=== PATIENT | male | born 1980 | race Two or more races ===

== ENCOUNTER 2024-06-13 11:21 | Inpatient (IN) | payer BC, SELFPAY ==
[2024-06-13] VITALS (9 sets, daily range): BP systolic 138–154; BP diastolic 82–97; PULSE 105–110; RESP 18–22; TEMP 37–39.1; O2SAT 93–95; BMI 31.3
--- NOTE | 2024-06-13 11:35 | XR_ITS ---
Examination: Abdomen sonogram, Limited Date and time of exam: June 13, 2024 1129 hours INDICATIONS: Epigastric pain beginning one week ago Technique: Real-time al scale transabdominal sonographic images of the upper abdomen obtained. Findings: Multiple subcentimeter gallbladder polyps Gallbladder wall 0.3 cm no gallstones Common bile duct 0.3 cm Pancreas obscured by bowel gas Liver 15.3 cm fatty infiltration Normal hepatopedal portal venous flow Patent IVC IMPRESSION: Gallbladder polyps Negative for cholelithiasis, negative for cholecystitis Fatty liver
--- NOTE | 2024-06-13 11:35 | XR_ITS ---
Examination: PA lateral chest 2 views TECHNIQUE: Upright PA lateral chest 2 views Exam date and time: June 13, 2024 1341 hours Comparison March 13, 2010 INDICATIONS: Chest pain beginning 12 days ago. FINDINGS: Significant elevation right hemidiaphragm Pneumonia at the right base best depicted on the lateral view Moderate right pleural fluid Left lung clear Normal heart size IMPRESSION: Pneumonia right base with moderate right pleural fluid
--- NOTE | 2024-06-13 12:14 | PD.EDRME ---
Rapid Medical Screening Exam [facility] Arrival date/time: 06/13/24 11:21 43-year-old male with no known medical history presents to the emergency room with a chief complaint of thoracic back pain that radiates to the right upper quadrant and chest x 3 days. Patient states the pain is an 8 out of 10 and has progressively gotten worse. I have greeted and performed a focused initial assessment of this patient. A comprehensive ED assessment and evaluation of the patient, analysis of all test results, and completion of the medical decision making process will be conducted by additional ED providers. Chief Complaint: Chest Pain Time Seen by Provider: 06/13/24 11:36 Vital signs: Vital Signs Temperature 98.6 F 06/13/24 11:30 Pulse Rate 109 H 06/13/24 11:30 Respiratory Rate 18 06/13/24 11:30 Blood Pressure 138/95 H 06/13/24 11:30 Pulse Oximetry (%) 94 L 06/13/24 11:30 Oxygen Delivery Method Room Air 06/13/24 11:30 Vital signs reviewed by provider: Yes
[2024-06-13 12:43] LABS: Collection Type, Urine Clean Catch
[2024-06-13 12:50] LABS: Bilirubin,Urine Negative (Negative); Blood,Urine Trace (Negative); Clarity,Urine Clear (Clear/Hazy); Color,Urine Lt-Yellow (Lt Yel-Yel); Glucose, Urine Trace (Negative); Ketones,Urine Negative (Negative); Leukocyte Esterase,Urine Negative (Negative); Nitrite,Urine Negative (Negative); PH,Urine 6.5 (5.0-7.0); Protein,Urine Negative (Neg - Trace); RBC,Urine 1 /hpf (0-3); Specific Gravity,Urine 1.012 (1.001-1.035); Squamous Epithelial Cell,Urine < 1 /hpf (0-5); Urobilinogen,Urine Negative mg/dL (0.0-1.0); WBC,Urine 3 /hpf (0-5)
[2024-06-13 12:56] LABS: Amphetamine/Methamp Scrn,U Negative (Negative); Barbiturate Screen,Urine Negative (Negative); Benzodiazepines Screen,Urine Negative (Negative); Benzoylecgonine Screen, Ur Negative (Negative); Fentanyl Screen,Urine Negative (Negative); Opiate Screen,Urine Negative (Negative); THC Screen,Urine Negative (Negative)
[2024-06-13 13:37] LABS: Basophils # (Auto) 0.1 Thou/mm3 (0.0-0.2); Basophils % (Auto) 0 % (0-2.5); Eosinophils # (Auto) 0.3 Thou/mm3 (0.0-0.5); Eosinophils % (Auto) 2 % (0-10); Hemoglobin 14.4 g/dL (13.5-16.0); Immature Granulocytes % (Auto) 0 % (0-0); Immature Granulocytes Auto 0.07 Thou/mm3 (0.00-0.00); Lymphocytes # (Auto) 1.3 Thou/mm3 (1.0-4.8); Lymphocytes % (Auto) 8 % (10-50); Mean Corpuscular HGB Conc 35.1 g/dl (31.0-37.0); Mean Corpuscular Hemoglobin 30.1 pg (25.0-35.0); Mean Corpuscular Volume 86 fL (80-100); Monocytes # (Auto) 2.6 Thou/mm3 (0.0-0.8); Monocytes % (Auto) 15 % (0-12); Neutrophils # (Auto) 12.7 Thou/mm3 (1.8-7.7); Neutrophils % (Auto) 74 % (37-80); Nucleated Red Blood Cell % 0 /100 WBC (0); Platelet Count 326 Thou/mm3 (140-440); RDW Standard Deviation 38.5 fL (35.1-43.9); Red Blood Count 4.79 Miln/mm3 (4.50-5.90)
[2024-06-13 13:52] LABS: B-Type Natriuretic Peptide < 20 pg/mL (0-100)
[2024-06-13 13:53] LABS: Alanine Aminotransferase 27 U/L (10-49); Albumin, Serum 4.4 gm/dL (3.5-5.0); Albumin/Globulin Ratio 1.3 (1.2-2.2); Alkaline Phosphatase 78 U/L (46-116); Anion Gap 7 (7-16); Aspartate Amino Transferase 11 U/L (0-34); BUN/Creatinine Ratio 11 Ratio (12-20); Bilirubin,Total 0.8 mg/dL (0.3-1.2); Blood Urea Nitrogen 10 mg/dL (9-23); Calcium 9.4 mg/dL (8.3-10.6); Calcium (Corrected) 9.4 mg/dL (8.5-10.1); Chloride 103 mMol/L (98-107); Creatinine (Component) 0.9 mg/dL (0.6-1.3); Estimated Creatinine Clearance 112.5 mL/min (>60); Globulin 3.4 gm/dL (2.3-3.5); Glucose 109 mg/dL (74-106); Lipase 25 U/L (12-53); Osmolality,Calculated 277 (275-295); Potassium 4.6 mMol/L (3.4-5.1); Sodium 139 mMol/L (136-145); Total Protein 7.8 gm/dL (5.7-8.2); Troponin I < 0.002 ng/mL (0.0-0.045); eGFR > 60 See Note
--- NOTE | 2024-06-13 15:43 | PD.EDADULT ---
ED General RME/HPI General Chief complaint: Chest Pain Stated complaint: CHEST/BACK PAIN/ HIGH BP Time Seen by Provider: 06/13/24 11:36 Arrival date/time: 06/13/24 11:21 Limitations: no limitations RME / HPI RME / HPI narrative: 06/13/24 11:21 43-year-old male with no known medical history presents to the emergency room with a chief complaint of thoracic back pain that radiates to the right upper quadrant and chest x 3 days. Patient states the pain is an 8 out of 10 and has progressively gotten worse. I have greeted and performed a focused initial assessment of this patient. A comprehensive ED assessment and evaluation of the patient, analysis of all test results, and completion of the medical decision making process will be conducted by additional ED providers. DR. KENNY MAIN ED EVALUATION: 43 year old male with history of hypertension presents to the ED for evaluation of chest and back pain beginning 3 days ago. Pain described as aching in sensation that is located most to chest and upper back, rating as moderate-severe. Accompanied by fever of 102F and cough. states they were evaluated at urgent care yesterday and was given a shot of Toradol and sent home. No known modifying factors reported. Related Data Allergies Allergy/AdvReac Type Severity Reaction Status Date / Time NKA* Allergy Uncoded 10/01/17 13:35 Review of Systems Review of Systems Systems Reviewed: All systems reviewed, normal except as documented Past Medical History Past Medical History NEUROLOGIC: Negative Neurological Disorders GASTROINTESTINAL: Negative Gastrointestinal Disorders GENITOURINARY: Negative Genitourinary Disorders or Renal Disease MUSCULOSKELETAL: Negative Musculoskeletal Disorders Social History SMOKING STATUS: Never smoker ED Exam General Limitations: Present no limitations General appearance: Present alert and in no apparent distress Head Head exam: Present atraumatic, normocephalic and normal inspection Eye Eye exam: Present normal appearance, PERRL and EOMI ENT ENT exam: Present normal exam, normal oropharynx and mucous membranes moist Neck Neck exam: Present normal inspection, full ROM and trachea midline Chest Chest inspection: Present normal inspection and symmetric chest wall rise Respiratory Respiratory exam: Present other (diminished breath sounds on the right side) Cardiovascular Cardiovascular exam: Present tachycardia and normal heart sounds Abdominal Exam Abdominal exam: Present soft and normal bowel sounds Extremities Exam Extremities exam: Present normal inspection and full ROM Back Exam Back exam: Present normal inspection and full ROM Neurological Exam Neurological exam: Present alert, oriented X3 and CN II-XII intact Psychiatric Psychiatric exam: Present normal affect and normal mood Skin Skin exam: Present warm, dry, intact and normal color Course Quality Measures none Orders Category Date Time Status Admit to Inpatient Status Routine Admission 06/13/24 16:08 Active Patient Condition Routine Admission 06/13/24 16:08 Ordered Activity as Tolerated Routine Care 06/13/24 16:09 Ordered COVID-19 Screening Questionnaire NOW Care 06/13/24 15:35 Active Continuous Pulse Oximetry NOW Care 06/13/24 16:08 Active Decision to Admit X1 Care 06/13/24 15:35 Active EKG (ED ONLY) *Do not use* NOW Care 06/13/24 11:35 Completed Flu & Pneumonia Vaccine Screen ONCE Care 06/13/24 16:08 Active Incentive Spirometry Treatment NOW Care 06/13/24 16:08 Active Notify provider NEEDED Care 06/13/24 16:08 Active Obtain weight daily Care 06/13/24 16:08 Active Diet Cardiac Diet 06/13/24 Dinner Active EKG (ED Only) Stat Exams 06/13/24 11:35 Ordered US gall bladder Stat Exams 06/13/24 11:35 Completed XR chest 2V Stat Exams 06/13/24 11:35 Completed B-Type Natriuretic Peptide Stat Lab 06/13/24 13:27 Completed Blood Culture (Lab) Stat Lab 06/13/24 15:30 Ordered CBC AM DRAW Lab 06/14/24 05:00 Ordered CBC AM DRAW Lab 06/15/24 05:00 Ordered CBC AM DRAW Lab 06/16/24 05:00 Ordered CBC Stat Lab 06/13/24 13:27 Completed Cocci Serology IgM with reflex to IgG [Cocci Serology, Lab 06/13/24 16:12 Ordered Unk History] Stat Comprehensive Metabolic Panel AM DRAW Lab 06/14/24 05:00 Ordered Comprehensive Metabolic Panel AM DRAW Lab 06/15/24 05:00 Ordered Comprehensive Metabolic Panel AM DRAW Lab 06/16/24 05:00 Ordered Comprehensive Metabolic Panel Stat Lab 06/13/24 13:27 Completed Drug Screen,Urine Stat Lab 06/13/24 12:28 Completed Legionella Ag, EIA, Urine* Stat Lab 06/13/24 Ordered Lipase Stat Lab 06/13/24 13:27 Completed Lipid Panel AM DRAW Lab 06/14/24 05:00 Ordered Magnesium AM DRAW Lab 06/14/24 05:00 Ordered Phosphorous AM DRAW Lab 06/14/24 05:00 Ordered Prothrombin Time with INR AM DRAW Lab 06/14/24 05:00 Ordered RSV [Respiratory Syncytial Virus Ag] Stat Lab 06/13/24 16:12 Ordered Sputum Culture and Gram Stain Routine Lab 06/13/24 16:10 Ordered Troponin I Stat Lab 06/13/24 13:27 Completed Urinalysis Stat Lab 06/13/24 12:28 Completed Acetaminophen Tab [Tylenol Tab] Med 06/13/24 16:08 Active 650 mg PO Q6H PRN Heparin Inj Med 06/13/24 21:00 Ordered 5,000 unit SC Q12HR Levofloxacin/D5w 500 mg Ivpb [Levaquin Ivpb] Med 06/13/24 15:32 Active 500 mg in 100 ml IV X1 Morphine Inj Med 06/13/24 16:08 Ordered 1 mg IVP Q4H PRN Ondansetron Inj [Zofran Inj] Med 06/13/24 16:08 Ordered 4 mg IV Q6H PRN Senna [Senokot] Med 06/13/24 16:08 Ordered 1 tab PO QDAY PRN Sodium Chloride 0.9% 1000 ml [Ns] 1,000 ml Med 06/13/24 15:30 Active IV 999 mls/hr Sodium Chloride Rt Willow 10% [NS Rt Willow 10%] Med 06/13/24 16:08 Once 5 ml INH X1 ONE cefTRIAXone/D5w 1gm IV premix [Rocephin/D5w 1gm IV Med 06/13/24 16:11 Active premix] 1 gm in 50 ml IV QDAY cefTRIAXone/D5w 1gm IV premix [Rocephin/D5w 1gm IV Med 06/13/24 15:30 Discontinued premix] 1 gm in 50 ml IV X1 oxyCODONE/APAP 5/325 [Percocet 5/325] Med 06/13/24 16:08 Ordered 1 tab PO Q6H PRN Code Status Routine Oth 06/13/24 16:08 Ordered Sputum Induction PRN RT 06/13/24 16:15 Ordered Vital Signs Vital signs: Vital Signs Temperature 98.6 F 06/13/24 11:30 Pulse Rate 109 H 06/13/24 11:30 Respiratory Rate 18 06/13/24 11:30 Blood Pressure 138/95 H 06/13/24 11:30 Pulse Oximetry (%) 94 L 06/13/24 11:30 Oxygen Delivery Method Room Air 06/13/24 11:30 Pulse ox is 94% on room air which is adequate. Discharge Plan Plan Patient Disposition: Admit Acute Care w/in Hospital Problem List Clinical Impression: Pneumonia, Leukocytosis, Pleural effusion Patient/Caregiver Discharge Instructions Print Language: Divehi Stand Alone Forms: Audra Award Info., Patient Portal Info Letter MDM Clinical Information Provided by: patient Medical Records reviewed [facility] (I reviewed ED visit on 09/03/2017 ) Meds/Rx considered, not ordered None Labs/Rad/Tests considered, not ordered None Chronic Illness/Social Conditions which may negatively complicate care or outcome(s)-explain: None or not applicable EKG Interpretation EKG #1: EKG Interpretation: 06/13/2024 @ 11:36 am. Sinus tachycardia, rate 109, no acute ST or T-wave changes. Labs Labs: Interpreted by [facility] Lab(s) Interpretation(s): Leukocytosis, diagnosed with pneumonia Imaging Imaging interpretation: Interpreted by [facility] Imaging Interpretation(s): Ordering Physician: Jose Manuel Bethea Date of Service: 06/13/24 Procedure(s): XR chest 2V Accession Number(s): [id number] cc: Jose Manuel Bethea; Cody Griggs MD; Amaya Valdes MD~ Examination: PA lateral chest 2 views TECHNIQUE: Upright PA lateral chest 2 views Exam date and time: June 13, 2024 1341 hours Comparison March 13, 2010 INDICATIONS: Chest pain beginning 12 days ago. FINDINGS: Significant elevation right hemidiaphragm Pneumonia at the right base best depicted on the lateral view Moderate right pleural fluid Left lung clear Normal heart size IMPRESSION: Pneumonia right base with moderate right pleural fluid Dictated By: Cody Griggs MD Signed By: <Electronically signed by Cody Griggs MD in OV> 06/13/24 1338 Ordering Physician: Jose Manuel Bethea Date of Service: 06/13/24 Procedure(s): US gall bladder Accession Number(s): [id number] cc: Jose Manuel Bethea; Cody Griggs MD; Amaya Valdes MD~ Examination: Abdomen sonogram, Limited Date and time of exam: June 13, 2024 1129 hours INDICATIONS: Epigastric pain beginning one week ago Technique: Real-time al scale transabdominal sonographic images of the upper abdomen obtained. Findings: Multiple subcentimeter gallbladder polyps Gallbladder wall 0.3 cm no gallstones Common bile duct 0.3 cm Pancreas obscured by bowel gas Liver 15.3 cm fatty infiltration Normal hepatopedal portal venous flow Patent IVC IMPRESSION: Gallbladder polyps Negative for cholelithiasis, negative for cholecystitis Fatty liver Dictated By: Cody Griggs MD Signed By: <Electronically signed by Cody Griggs MD in OV> 06/13/24 1255 Medication Administration(s) Medication Administration History Acetaminophen (Acetaminophen 325 Mg Tablet) 650 mg PO Q6H PRN PRN Reason: Pain 1-3 and/or Fever >100.1 Stop: 07/13/24 16:07 Heparin Sodium (Porcine) (Heparin Sod Inj 5000 Unit/Ml Vial) 5,000 unit SC Q12HR CYNTHIA Stop: 06/27/24 20:59 Sodium Chloride (Ns) 1,000 mls @ 999 mls/hr IV .Q1H1M ONE Stop: 06/13/24 16:30 Levofloxacin/Dextrose (Levaquin Ivpb) 500 mg in 100 mls @ 100 mls/hr IV X1 ONE Stop: 06/13/24 16:31 Ceftriaxone Sodium/Dextrose (Rocephin/D5w 1gm Iv Premix) 1 gm in 50 mls @ 100 mls/hr IV QDAY CYNTHIA Stop: 06/20/24 16:10 Morphine Sulfate (Morphine Sulf Inj 10 Mg/Ml Vial) 1 mg IVP Q4H PRN PRN Reason: PAIN SCALE 7-10 (Severe Stop: 06/18/24 16:07 Ondansetron HCl (Ondansetron Inj 2 Mg/Ml Inj 2 Ml) 4 mg IV Q6H PRN; Protocol PRN Reason: NAUSEA OR VOMITING Stop: 07/13/24 16:07 Oxycodone/Acetaminophen (Oxycodone/Apap 5/325 Tablet) 1 tab PO Q6H PRN PRN Reason: PAIN SCALE 4-6 (Moderate Stop: 06/18/24 16:07 Sennosides (Senna Tablet) 1 tab PO QDAY PRN; Protocol PRN Reason: constipation Stop: 07/13/24 16:07 Sodium Chloride (Sodium Chloride Rt 10% 15 Ml Nebu) 5 ml INH X1 ONE Stop: 06/13/24 16:09 Discontinued Medications Ceftriaxone Sodium/Dextrose (Rocephin/D5w 1gm Iv Premix) 1 gm in 50 mls @ 100 mls/hr IV X1 ONE Stop: 06/13/24 15:59 See above
--- NOTE | 2024-06-13 16:22 | ESHP_ITS ---
Documentation for date of: 06/13/24 HPI History of Present Illness Chief complaint: Chest/epigastric pain, fever, shortness of breath History of present illness: 43-year-old male with past medical history of hypertension on losartan presenting to the ED on 06/13/2024 for unrelenting epigastric/chest pain associated with shortness of breath, cough and fever. Patient states that since Saturday 06/03 he has started to have some generalized pain including back pain, epigastric and chest pain which started when he woke up after work that day. Patient was seen at an urgent care facility and was given some Toradol but no antibiotics for initially suspected muscle strain. Patient developed fevers (as high as 102 ?F) and one vomiting episode which prompted him to come to the ED. Patient denies having any sick contacts, dizziness, palpitations, orthopnea, paroxysmal nocturnal dyspnea; however, the patient does state that he has not had appetite for about 4 days and he has not been sleeping well. Patient is an [employer] worker and has been working since 2005; moreover, states that he worked at a [employer] site Monday prior to his symptom onset and Sunday 06/04 after symptom onset. Patient denies having any immunocompromise state, denies both firsthand and secondhand smoke, no illicit drug use and denies any family history of lung disease. Medical history: As stated above Surgical history: None Allergies: NKDA Medications: Losartan 100 mg p.o. 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 ROS: All 12 systems assessed and the patient denies unless otherwise stated in HPI In the ED, patient presented mildly hypertensive 138/95, tachycardic heart rate 109, respiratory rate 18, (initially afebrile) now 102.4F and satting between 92 and 94 on room air. Pertinent lab findings included WBC of 17, hemoglobin 14.4, platelets of 326, electrolyte panel without any remarkable findings, glucose of 109, troponin within normal limits, BNP less than 20, lipase of 25. Urinalysis negative for any urinary tract infection, U-Tox negative. Chest x-ray did show significant elevation of the right hemidiaphragm, pneumonia in the right base with moderate right pleural fluid and a normal sized heart with a clear left lung. Ultrasound of the gallbladder ordered showed gallbladder polyps, negative for any cholelithiasis or cholecystitis but there were signs of NGUYEN. Patient will be admitted for extensive right pneumonia with pleural effusion and started on IV antibiotics with workup for secondary causes of pneumonia and possible ultrasound-guided thoracentesis. Exam Vital Signs Temp Pulse Resp BP Pulse Ox O2 Del Method 98.6 F 109 H 18 138/95 H 94 L Room Air 06/13/24 11:30 06/13/24 11:30 06/13/24 11:30 06/13/24 11:30 06/13/24 11:06/13/24 11:30 Narrative Exam Physical Exam: GENERAL: Awake, appears stated age, diaphoretic, answering questions appropriately HEENT: NC/AT. Moist mucosa. PERRLA/EOMI. CARDIO: Heart RRR, no obvious murmurs, no JVD. PULM: Dry coughing with visible SOB as noted from intercostal retractions. Lungs CTA B/L. GI: Abdomen soft, mildly tender to palpation in epigastric and right upper quadrant, +BS. , SKIN/MSK/EXT: No wounds/discoloration/rashes/edema/amputations. +Pedal pulses present B/L. NEURO: Oriented x3, Moves extremities x4, no focal neurologic deficits noted. Results: Labs 06/14/24 05:09 06/14/24 05:09 Labs: Short CBC 06/13/24 Range/Units 13:27 WBC 17.0 H (3.8-10.6) Thou/mm3 Hgb 14.4 (13.5-16.0) g/dL Hct 41.0 (41.0-53.0) % Plt Count 326 (140-440) Thou/mm3 BMP 06/13/24 13:27 Sodium 139 Potassium 4.6 Chloride 103 Carbon Dioxide 29.0 BUN 10 Creatinine 0.9 Glucose 109 H Calcium 9.4 Cardiac Enzymes 06/13/24 Range/Units 13:27 Troponin I < 0.002 (0.0-0.045) ng/mL Liver Function 06/13/24 Range/Units 13:27 Total Bilirubin 0.8 (0.3-1.2) mg/dL AST 11 (0-34) U/L ALT 27 (10-49) U/L Alkaline Phosphatase 78 (46-116) U/L Albumin 4.4 (3.5-5.0) gm/dL Urine 06/13/24 Range/Units 12:28 Urine Color Lt-Yellow (Lt Yel-Yel) Urine Clarity Clear (Clear/Hazy) Urine pH 6.5 (5.0-7.0) Ur Specific Atkins 1.012 (1.001-1.035) Urine Protein Negative (Neg - Trace) Urine Glucose (UA) Trace (Negative) Quality Measures Quality Measures none Medications Home Medications and Allergies Home Medications ?Medication ?Instructions ?Recorded ?Confirmed ?Type cyclobenzaprine 10 mg tablet 10 mg PO TID 06/14/2404/09 History losartan 100 mg tablet 100 mg PO QDAY 06/14/2404/09 History Allergies Allergy/AdvReac Type Severity Reaction Status Date / Time No Known Allergies Allergy Verified 06/14/24 00:17 Visit Medications Acetaminophen (Acetaminophen 325 Mg Tablet) 650 mg PO Q6H PRN PRN Reason: Pain 1-3 and/or Fever >100.1 Stop: 07/13/24 16:07 Heparin Sodium (Porcine) (Heparin Sod Inj 5000 Unit/Ml Vial) 5,000 unit SC Q12HR [facility] Stop: 06/27/24 20:59 Sodium Chloride (Ns) 1,000 mls @ 999 mls/hr IV .Q1H1M ONE Stop: 06/13/24 16:30 Levofloxacin/Dextrose (Levaquin Ivpb) 500 mg in 100 mls @ 100 mls/hr IV X1 ONE Stop: 06/13/24 16:31 Ceftriaxone Sodium/Dextrose (Rocephin/D5w 1gm Iv Premix) 1 gm in 50 mls @ 100 mls/hr IV QDAY CYNTHIA Stop: 06/21/24 08:59 Azithromycin 500 mg/ Sodium (Chloride) 250 mls @ 250 mls/hr IV QDAY ONE Stop: 06/14/24 09:59 Azithromycin 250 mg/ Sodium (Chloride) 250 mls @ 250 mls/hr IV QDAY CYNTHIA Stop: 06/19/24 08:59 Morphine Sulfate (Morphine Sulf Inj 10 Mg/Ml Vial) 1 mg IVP Q4H PRN PRN Reason: PAIN SCALE 7-10 (Severe Stop: 06/18/24 16:07 Ondansetron HCl (Ondansetron Inj 2 Mg/Ml Inj 2 Ml) 4 mg IV Q6H PRN; Protocol PRN Reason: NAUSEA OR VOMITING Stop: 07/13/24 16:07 Oxycodone/Acetaminophen (Oxycodone/Apap 5/325 Tablet) 1 tab PO Q6H PRN PRN Reason: PAIN SCALE 4-6 (Moderate Stop: 06/18/24 16:07 Sennosides (Senna Tablet) 1 tab PO QDAY PRN; Protocol PRN Reason: constipation Stop: 07/13/24 16:07 Discontinued Medications Ceftriaxone Sodium/Dextrose (Rocephin/D5w 1gm Iv Premix) 1 gm in 50 mls @ 100 mls/hr IV X1 ONE Stop: 06/13/24 15:59 Ceftriaxone Sodium/Dextrose (Rocephin/D5w 1gm Iv Premix) 1 gm in 50 mls @ 100 mls/hr IV QDAY CYNTHIA Stop: 06/20/24 16:10 Sodium Chloride (Sodium Chloride Rt 10% 15 Ml Nebu) 5 ml INH X1 ONE Stop: 06/13/24 16:09 Assessment & Plan Plan 43-year-old male with past medical history of hypertension on losartan presenting to the ED for unrelenting epigastric/chest pain associated with shortness of breath, cough and fever will be admitted for extensive right pneumonia with pleural effusion and started on IV antibiotics with workup for secondary causes of pneumonia and possible ultrasound-guided thoracentesis. 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 which is a risk factor for uncommon pathogens causing lung disease On examination, patient has dry coughing with visible SOB as noted from intercostal retractions, tachycardia with heart rate of 109 Pertinent lab findings include WBC of 17 with elevated monocytes but low in eosinophils Chest x-ray did show significant elevation of the right hemidiaphragm, pneumonia in the right base with moderate right pleural fluid and a normal sized heart with a clear left lung DDx: Community-acquired pneumonia, bacterial, legionnaire bacteria pneumonia, viral pneumonia, coccidiomycosis, pleural malignancy less likely Patient did receive x 1 dose of Levaquin Plan: Ultrasound-guided thoracentesis ordered Pleural fluid analysis ordered IV NS 100cc for 1 bag CTA Chest to r/o PE; tachycardia and hypoxia Multimodal pain management for pleuritis Ceftriaxone azithromycin to be added starting 5/2 Sputum culture, blood cultures ordered RSV, cocci, urine Legionella, HIV Ab ordered Will hold off on breathing treatments as the patient does not have any wheezing noted #Hypertension Patient on home losartan 100 mg p.o. daily Plan: Will restart home medications Ordered lipid panel, A1c and TSH to workup ASCVD risk score #Metabolic Dysfunction-Associated Steatotic Liver Disease Patient does have a BMI of 31.3 Ultrasound of the gallbladder ordered showed gallbladder polyps, negative for any cholelithiasis or cholecystitis but there were signs of NGUYEN. Ultrasound was ordered as the patient was having nonspecific epigastric and right thorax pain likely secondary to the pneumonia Patient's liver function labs look unremarkable Plan: Follow-up outpatient Counseled on diet and exercise Hospital Management: Lines: PIV Diet: Cardiac Bowel: Senna as needed GI prophylaxis: Not needed DVT prophylaxis: Heparin subcu Dispo: Workup for bacterial, viral versus fungal pneumonia on IV antibiotics and possible ultrasound-guided thoracentesis Code: Full Patient seen and assessed with attending Dr. Judy Holly, PGY-1 Attending Provider Attestation/Addendum Duy, Gabriella Kim DO, attest that I was physically present for the mensah portions of the service and evaluated the patient with the resident and I reviewed and discussed the case with the resident and agree with the resident's findings and plans of care as documented above Patient is a 43-year-old male with past medical history of hypertension who presented to the ED with 9 days of worsening right sided chest pain and shortness of breath. Patient states that he initially thought that he had pulled a muscle resulting in pain in his right mid scapular region. Patient took some muscle relaxants and pain medicine with little resolution of his pain. Patient endorses having worsening pain with deep inspiration. However, he noted that he had worsening generalized weakness and fevers that began yesterday. Patient denies any sick contacts at home or at work. Patient states that he works at the [employer] in [facility]. Chest x-ray shows pneumonia in the right base. Patient denies any tobacco, alcohol or drug use. He continues to be tachycardic in the ED with fever 102.4. Patient remains on room air but is taking shallow breaths due to pain on inspiration. Patient also endorses having dark-colored urine, but denies dysuria. He also endorses having shaking chills, but denies any productive sputum, lightheadedness, dizziness, abdominal pain otherwise. He reports having 2 days of diarrhea. Will admit patient for further workup and medical management of extensive right lower lobe pneumonia and admit to med/telemetry. CTA was also done showing no evidence of pulmonary emboli, but does show severe right lung pneumonia and a small right pleural effusion. Will start patient on IV antibiotics for coverage of atypical gram- negative pneumonia. Will give aggressive IV fluid hydration as patient has had poor p.o. intake. Will follow-up blood cultures. Patient does not have any rashes or skin lesions noted. He does have diminished breath sounds in the right lower lung castillo.
[2024-06-13] MEDS: SODIUM CHLORIDE 0.9% 1000 ML 1,000 ML 999 ML IV (16:57)
[2024-06-13] MEDS: cefTRIAXone/D5w 1gm IV premix 1 GM/50 ML BAG IV (16:58)
[2024-06-13] MEDS: ACETAMINOPHEN 325 MG TABLET 650 MG PO (16:59)
[2024-06-13] MEDS: MORPHINE SULF INJ 10 MG/ML VIAL IVP (16:59)
--- NOTE | 2024-06-13 17:09 | PC.NURSE ---
pt reports he only has cp when he coughs and that pain is a 10/10. pt medicated for pain (see mar). pt has temp, tylenol given, pt is tachy and hypertensive on tele
--- NOTE | 2024-06-13 17:17 | XR_ITS ---
Examination: CTA chest with intravenous contrast 2-D reconstructions 3-D reconstructions, vascular Date and time of exam: June 13, 2024 1751 hours INDICATIONS: Chest pain and shortness of breath hypoxia tachycardia today, clinical diagnosis pulmonary emboli CTDI: vol (mGy) 15.5 DLP: (mGycm) 553 Technique: Multiple axial sections of the thorax have been obtained. 3 mm slice thickness, from below the hemidiaphragms to above the apices of the lungs. Mediastinal and lung density settings have been obtained. 2-D sagittal and coronal reconstructions. 3-D angiographic renderings, 3-D volume renderings, 3D post processing, vascular maximum intensity projections obtained. Contrast administered is 100 cc Isovue-370. Low dose protocols were performed. One or more of the following dose reduction techniques were used; automated exposure control, adjustment of the mA and/or KV according to patient size, use of iterative reconstruction technique. Findings: No thoracic aortic aneurysm dilatation or dissection No pulmonary artery filling defects Severe right lung pneumonia including right middle lobe and right lower lobe with small right pleural effusion Fatty liver Spleen not enlarged No gallstones No pancreatic or adrenal mass No hydronephrosis IMPRESSION: Negative for pulmonary artery emboli Severe right lung pneumonia, follow-up chest imaging is needed to document clearing of this pneumonia and exclude pulmonary mass in the right upper lobe
[2024-06-13 17:48] LABS: HIV (1&2) Antibody Rapid Non-Reactive
[2024-06-13 17:49] LABS: Path Review Blood Smear Sent to Pathologist
[2024-06-13] MEDS: LEVOFLOXACIN/D5W 500 MG IVPB 500 MG/100 ML BAG 100 MG IV (18:51)
[2024-06-13] MEDS: SODIUM CHLORIDE 0.9% 1000 ML 1,000 ML 100 ML IV (18:52)
[2024-06-13] MEDS: HEPARIN SOD INJ 5000 UNIT/ML VIAL SC (21:19)
[2024-06-13] MEDS: IBUPROFEN TAB 400 MG TABLET PO (21:45)
[2024-06-14] VITALS (13 sets, daily range): BP systolic 130–156; BP diastolic 89–100; PULSE 90–114; RESP 18–20; TEMP 36.7–38.7; O2SAT 93–98; BMI 31.5
[2024-06-14 02:19] LABS: Respiratory Syncytial Virus Ag Negative (Negative)
[2024-06-14] MEDS: oxyCODONE/APAP 5/325 TABLET 1 TAB PO (03:34)
[2024-06-14 06:22] LABS: Basophils % (Auto) 0 % (0-2.5); Eosinophils # (Auto) 0.5 Thou/mm3 (0.0-0.5); Eosinophils % (Auto) 4 % (0-10); Hemoglobin 12.6 g/dL (13.5-16.0); Immature Granulocytes % (Auto) 0 % (0-0); Immature Granulocytes Auto 0.05 Thou/mm3 (0.00-0.00); Lymphocytes % (Auto) 7 % (10-50); Mean Corpuscular Hemoglobin 30.3 pg (25.0-35.0); Mean Corpuscular Volume 87 fL (80-100); Monocytes # (Auto) 2.2 Thou/mm3 (0.0-0.8); Monocytes % (Auto) 16 % (0-12); Neutrophils # (Auto) 9.7 Thou/mm3 (1.8-7.7); Neutrophils % (Auto) 72 % (37-80); Nucleated Red Blood Cell % 0 /100 WBC (0); Platelet Count 296 Thou/mm3 (140-440); RDW Standard Deviation 40.4 fL (35.1-43.9); Red Blood Count 4.16 Miln/mm3 (4.50-5.90); White Blood Count 13.5 Thou/mm3 (3.8-10.6)
[2024-06-14 06:45] LABS: INR 1.1 (0.9-1.3); Prothrombin Time 11.5 Seconds (9.0-12.2)
[2024-06-14 06:50] LABS: Glucose Estimated Average 105 mg/dL (80-131); Hemoglobin A1C 5.3 % Hgb (4.8-6.0)
[2024-06-14 07:06] LABS: Alanine Aminotransferase 23 U/L (10-49); Albumin, Serum 3.9 gm/dL (3.5-5.0); Albumin/Globulin Ratio 1.3 (1.2-2.2); Alkaline Phosphatase 70 U/L (46-116); Anion Gap 10 (7-16); Aspartate Amino Transferase 13 U/L (0-34); BUN/Creatinine Ratio 11 Ratio (12-20); Bilirubin,Total 0.6 mg/dL (0.3-1.2); Blood Urea Nitrogen 9 mg/dL (9-23); Calcium 8.5 mg/dL (8.3-10.6); Calcium (Corrected) 8.6 mg/dL (8.5-10.1); Carbon Dioxide 26.9 mMol/L (20.0-31.0); Cardiac Risk Estimate 4.5 RATIO (4.0-6.7); Chloride 104 mMol/L (98-107); Cholesterol 95 mg/dL (132-200); Creatinine (Component) 0.8 mg/dL (0.6-1.3); Globulin 2.9 gm/dL (2.3-3.5); Glucose 110 mg/dL (74-106); HDL Cholesterol 21 mg/dL (40-60); LDL Cholesterol,Calculated 53 mg/dL (0-130); Magnesium 1.6 mg/dL (1.6-2.6); Osmolality,Calculated 280 (275-295); Potassium 3.7 mMol/L (3.4-5.1); Sodium 141 mMol/L (136-145); Thyroid Stimulating Hormone 3.38 uIU/mL (0.55-4.78); Total Protein 6.8 gm/dL (5.7-8.2); Triglycerides 107 mg/dL (30-150); eGFR > 60 See Note
--- NOTE | 2024-06-14 08:00 | XR_ITS ---
Examination: Ultrasound right hemithorax Ultrasound left hemithorax Exam date and time: June 14, 2024 1045 hours INDICATIONS: Difficulty breathing this week, pleural fluid on the right on CT angiogram June 13, 2024, minimal TECHNIQUE AND FINDINGS: Multiple grayscale sonographic images right and left hemithoraces Minimal right pleural fluid No left pleural fluid IMPRESSION: Insufficient pleural fluid for safe thoracentesis
[2024-06-14] MEDS: cefTRIAXone/D5w 1gm IV premix 1 GM/50 ML BAG IV (08:50)
[2024-06-14] MEDS: LOSARTAN POTASSIUM 25 MG TABLET 100 MG PO (08:50)
[2024-06-14] MEDS: HEPARIN SOD INJ 5000 UNIT/ML VIAL SC (08:50)
[2024-06-14] MEDS: ACETAMINOPHEN 325 MG TABLET 650 MG PO ×3 (09:26→21:09)
[2024-06-14] MEDS: AZITHROMYCIN INJ 500 MG in SODIUM CHLORIDE 0.9% 250 ML 250 ML 250 MG IV (09:27)
--- NOTE | 2024-06-14 10:31 | PC.NURSE ---
Dr. Palacios was made aware sputum collection was canceled, no new orders given.
[2024-06-14 11:54] LABS: Cocci Serology, IgM Positive (Negative)
[2024-06-14 11:55] LABS: Cocid Sro, CF/ID (UCD) NO CHG* See Sep Rpt
--- NOTE | 2024-06-14 11:59 | PC.SS ---
Patient is alert/oriented. Employed. Independent with ADL's. 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 Patient admitted with pneumonia. i.v. antibiotics. Possible d/c today per physician team
[2024-06-14] MEDS: MORPHINE SULF INJ 10 MG/ML VIAL IVP (14:08)
--- NOTE | 2024-06-14 16:09 | ESPR_ITS ---
<Statement entered by Rylan Isaacs MD - 06/20/24 14:45> I reviewed above note and agree with findings and plans. I have also personally examined the patient with medicine team and went over assessment and plan with medical team including research intern and resident physician. Documentation for date of: 06/14/24 Subjective Subjective Interval history: Patient was seen and examined at bedside this AM. No acute events overnight. Patient tolerating diet, adequate urine output and mentation is at baseline. Patient endorses improvement of cough and bodyaches. Pending cocci results, will discontinue antibiotics if positive start patient on fluconazole. Exam Vital Signs Temp Pulse Resp BP Pulse Ox O2 Del Method 100.7 F H 98 18 142/92 H 95 Room Air 06/14/24 14:59 06/14/24 12:00 06/14/24 12:00 06/14/24 12:00 06/14/24 12:00 06/14/24 12:00 Narrative Exam Constitutional Alert, oriented x3 and comfortable. On 2L oxygen via NC HEENT Vision grossly intact. Patent nares. Trachea midline. Respiratory Chest normal on inspection, congestion and wheezes on auscultation bilaterally. Cardiovascular S1 and S2 audible, RRR. No murmurs or carotid bruit. No gross JVD. Abdominal Soft, mild RUQ tender to deep palpation. BS + Genitourinary No bladder tenderness, no flank pain. Normal to palpation. Musculoskeletal Extremities tone within normal limits. No LE edema. Neurological CN II - XII grossly intact. Extremity motor and sensation grossly intact. Skin Warm, dry and intact. No apparent lesions. Psychiatric Patient has a good affect, is cooperative. Objective Labs 06/14/24 05:09 06/14/24 05:09 Labs: Laboratory Results - last 24 hr 06/13/24 06/13/24 06/14/24 13:27 16:50 01:00 WBC 17.0 H RBC 4.79 Hgb 14.4 Hct 41.0 MCV 86 MCH 30.1 MCHC 35.1 RDW Std Deviation 38.5 Plt Count 326 Neut % (Auto) 74 Lymph % (Auto) 8 L Stearns % (Auto) 15 H Eos % (Auto) 2 Baso % (Auto) 0 Neut # (Auto) 12.7 H Lymph # (Auto) 1.3 Stearns # (Auto) 2.6 H Eos # (Auto) 0.3 Baso # (Auto) 0.1 Immature Gran # (Auto) 0.07 H Absolute Nucleated RBC 0.00 Immature Gran % 0 Nucleated RBC % 0 Smear Path Review Sent to Pathologist PT INR Sodium Potassium Chloride Carbon Dioxide Anion Gap BUN Creatinine Estim Creat Clear Calc eGFR BUN/Creatinine Ratio Glucose Estimated Ave Glu mg/dL Hemoglobin A1c Calculated Osmolality Calcium Corrected Calcium Phosphorus Magnesium Total Bilirubin AST ALT Alkaline Phosphatase B-Natriuretic Peptide < 20 Total Protein Albumin Globulin Albumin/Globulin Ratio Triglycerides Cholesterol LDL Cholesterol, Calc HDL Cholesterol Cholesterol/HDL Ratio TSH Coccidioides IgM Ab Positive A HIV 1&2 Antibody Rapid Non-Reactive RSV Rapid Negative 06/14/24 05:09 WBC 13.5 H RBC 4.16 L Hgb 12.6 L Hct 36.0 L MCV 87 MCH 30.3 MCHC 35.0 RDW Std Deviation 40.4 Plt Count 296 D Neut % (Auto) 72 Lymph % (Auto) 7 L Stearns % (Auto) 16 H Eos % (Auto) 4 Baso % (Auto) 0 Neut # (Auto) 9.7 H Lymph # (Auto) 1.0 Stearns # (Auto) 2.2 H Eos # (Auto) 0.5 Baso # (Auto) 0.0 Immature Gran # (Auto) 0.05 H Absolute Nucleated RBC 0.00 Immature Gran % 0 Nucleated RBC % 0 Smear Path Review PT 11.5 INR 1.1 Sodium 141 Potassium 3.7 D Chloride 104 Carbon Dioxide 26.9 Anion Gap 10 BUN 9 Creatinine 0.8 Estim Creat Clear Calc 127.0 eGFR > 60 BUN/Creatinine Ratio 11 L Glucose [address] Glu mg/dL 105 Hemoglobin A1c 5.3 Calculated Osmolality 280 Calcium 8.5 Corrected Calcium 8.6 Phosphorus 2.0 L Magnesium 1.6 Total Bilirubin 0.6 AST 13 ALT 23 Alkaline Phosphatase 70 B-Natriuretic Peptide Total Protein 6.8 Albumin 3.9 D Globulin 2.9 Albumin/Globulin Ratio 1.3 Triglycerides 107 Cholesterol 95 L LDL Cholesterol, Calc 53 HDL Cholesterol 21 L Cholesterol/HDL Ratio 4.5 TSH 3.38 Coccidioides IgM Ab HIV 1&2 Antibody Rapid RSV Rapid Quality Measures Quality Measures none Assessment & Plan Assessment Current Active Medications: Generic Name Dose Route Start Last Admin Trade Name Freq PRN Reason Stop Dose Admin Acetaminophen 650 mg 06/13/24 16:08 06/14/24 14:59 Acetaminophen 325 Mg Tablet PO 07/13/24 16:07 650 mg Q6H PRN Administration Pain 1-3 and/or Fever >100.1 Heparin Sodium (Porcine) 5,000 unit 06/13/24 21:00 06/14/24 08:50 Heparin Sod Inj 5000 Unit/Ml Vial SC 06/27/24 20:59 5,000 unit Q12HR CYNTHIA Administration Ceftriaxone Sodium/Dextrose 1 gm in 50 mls @ 100 mls/hr 06/14/24 09:00 06/14/24 08:50 Rocephin/D5w 1gm Iv Premix IV 06/21/24 08:59 100 mls/hr QDAY CYNTHIA Administration Azithromycin 250 mg/ Sodium 250 mls @ 250 mls/hr 06/15/24 09:00 Chloride IV 06/19/24 08:59 QDAY CYNTHIA Losartan Potassium 100 mg 06/14/24 09:00 06/14/24 08:50 Losartan Potassium 25 Mg Tablet PO 07/14/24 08:59 100 mg QDAY CYNTHIA Administration Morphine Sulfate 1 mg 06/13/24 16:08 06/14/24 14:08 Morphine Sulf Inj 10 Mg/Ml Vial IVP 06/18/24 16:07 1 mg Q4H PRN Administration PAIN SCALE 7-10 (Severe Ondansetron HCl 4 mg 06/13/24 16:08 Ondansetron Inj 2 Mg/Ml Inj 2 Ml IV 07/13/24 16:07 Q6H PRN NAUSEA OR VOMITING Protocol Oxycodone/Acetaminophen 1 tab 06/13/24 16:08 06/14/24 03:34 Oxycodone/Apap 5/325 Tablet PO 06/18/24 16:07 1 tab Q6H PRN Administration PAIN SCALE 4-6 (Moderate Sennosides 1 tab 06/13/24 16:08 Senna Tablet PO 07/13/24 16:07 QDAY PRN constipation Protocol Plan Patient is a 43-year-old male with past medical history of hypertension on losartan presenting to the ED for unrelenting epigastric/chest pain associated with shortness of breath, cough and fever will be admitted for extensive right pneumonia with pleural effusion and started on IV antibiotics with workup for secondary causes of pneumonia and possible ultrasound-guided thoracentesis. 1. Right-sided cocci pneumonia 2. Pleural effusion s/p thoracentesis 3. Pleuritis 4. 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 which is a risk factor for uncommon pathogens causing lung disease On examination, patient has dry coughing with visible SOB as noted from intercostal retractions, tachycardia with heart rate of 109 Pertinent lab findings include WBC of 17 with elevated monocytes but low in eosinophils Chest x-ray did show significant elevation of the right hemidiaphragm, pneumonia in the right base with moderate right pleural fluid and a normal sized heart with a clear left lung DDx: Community-acquired pneumonia, bacterial, legionnaire bacteria pneumonia, viral pneumonia, coccidiomycosis, pleural malignancy less likely - Patient did receive x 1 dose of Levaquin and 500 mg azithromycin x 1 - 06/13 : CTA Chest r/o PE , ordered for tachycardia and hypoxia - Hep panel and HIV : negative - 06/14 : Ultrasound-guided thoracentesis not performed, due to insufficient fluid - Cocci IgM : positive Plan: - Pain control with acetaminophen, 1 mg morphine as needed for pleuritis - Continue IV ceftriaxone 1 g daily (06/14 - - Sputum culture, blood cultures ordered. Pending results - Cocci IgM positive. Started IV fluconazole 400 mg daily (06/14 - - Follow-up RSV, urine Legionella - Will hold off on breathing treatments as the patient does not have any wheezing noted 5. Primary hypertension Patient on home losartan 100 mg p.o. daily Plan: Will restart home medications Ordered lipid panel, A1c and TSH to workup ASCVD risk score 6. Metabolic Dysfunction-Associated Steatotic Liver Disease Patient does have a BMI of 31.3 Ultrasound of the gallbladder ordered showed gallbladder polyps, negative for any cholelithiasis or cholecystitis but there were signs of NGUYEN. Ultrasound was ordered as the patient was having nonspecific epigastric and right thorax pain likely secondary to the pneumonia Patient's liver function labs look unremarkable Plan: Follow-up outpatient Counseled on diet and exercise Patient will benefit with outpatient GLP-1 treatment given BMI >30 Hospital Management: Dispo: On treatment for cocci pneumonia. Pleural effusion not amenable to drainage. Lines: PIV Diet: Cardiac Bowel: Senna as needed GI prophylaxis: Not needed DVT prophylaxis: Heparin SC Code: Full code Plan of care discussed with attending [place] M.D. PGY2 Disclaimer: This note was dictated by speech recognition. Minor errors in vp scientific affairs may be present due to voice recognition software.
--- NOTE | 2024-06-14 16:19 | PC.NURSE ---
1440: patient 100.7 fever, md aware, medication given, cooling measures initiated.
[2024-06-14] MEDS: FLUCONAZOLE/NS 400 MG IVPB 400 MG/200 ML BAG 100 MG IV (17:01)
[2024-06-14] MEDS: IBUPROFEN TAB 400 MG TABLET PO (22:55)
[2024-06-15] VITALS: BP 148/95; PULSE 95; RESP 18; TEMP 37.1; O2SAT 96
[2024-06-15 04:00] VITALS: BP 132/88; PULSE 82; PULSE 84; RESP 20; TEMP 36.6; O2SAT 94
[2024-06-15 05:56] LABS: Basophils # (Auto) 0.1 Thou/mm3 (0.0-0.2); Basophils % (Auto) 0 % (0-2.5); Eosinophils # (Auto) 0.6 Thou/mm3 (0.0-0.5); Eosinophils % (Auto) 5 % (0-10); Hematocrit 37.6 % (41.0-53.0); Hemoglobin 12.7 g/dL (13.5-16.0); Immature Granulocytes % (Auto) 1 % (0-0); Immature Granulocytes Auto 0.06 Thou/mm3 (0.00-0.00); Lymphocytes # (Auto) 1.1 Thou/mm3 (1.0-4.8); Lymphocytes % (Auto) 10 % (10-50); Mean Corpuscular HGB Conc 33.8 g/dl (31.0-37.0); Mean Corpuscular Hemoglobin 29.7 pg (25.0-35.0); Mean Corpuscular Volume 88 fL (80-100); Monocytes # (Auto) 1.9 Thou/mm3 (0.0-0.8); Monocytes % (Auto) 17 % (0-12); Neutrophils # (Auto) 7.5 Thou/mm3 (1.8-7.7); Neutrophils % (Auto) 67 % (37-80); Nucleated Red Blood Cell % 0 /100 WBC (0); Platelet Count 313 Thou/mm3 (140-440); RDW Standard Deviation 41.1 fL (35.1-43.9); Red Blood Count 4.28 Miln/mm3 (4.50-5.90); White Blood Count 11.2 Thou/mm3 (3.8-10.6)
[2024-06-15 06:30] LABS: Alanine Aminotransferase 35 U/L (10-49); Albumin, Serum 3.9 gm/dL (3.5-5.0); Albumin/Globulin Ratio 1.2 (1.2-2.2); Alkaline Phosphatase 79 U/L (46-116); Anion Gap 10 (7-16); Aspartate Amino Transferase 22 U/L (0-34); BUN/Creatinine Ratio 16 Ratio (12-20); Bilirubin,Total 0.6 mg/dL (0.3-1.2); Blood Urea Nitrogen 11 mg/dL (9-23); Calcium 8.5 mg/dL (8.3-10.6); Calcium (Corrected) 8.6 mg/dL (8.5-10.1); Carbon Dioxide 26.9 mMol/L (20.0-31.0); Chloride 104 mMol/L (98-107); Creatinine (Component) 0.7 mg/dL (0.6-1.3); Estimated Creatinine Clearance 145.1 mL/min (>60); Globulin 3.2 gm/dL (2.3-3.5); Glucose 108 mg/dL (74-106); Osmolality,Calculated 281 (275-295); Potassium 3.8 mMol/L (3.4-5.1); Sodium 141 mMol/L (136-145); Total Protein 7.1 gm/dL (5.7-8.2); eGFR > 60 See Note
[2024-06-15 07:22] VITALS: BP 124/83; PULSE 85; RESP 17; TEMP 36.6; O2SAT 98
[2024-06-15 08:57] VITALS: BP 124/83; PULSE 85
[2024-06-15] MEDS: LOSARTAN POTASSIUM 25 MG TABLET 100 MG PO (08:57)
[2024-06-15] MEDS: cefTRIAXone/D5w 1gm IV premix 1 GM/50 ML BAG IV (08:58)
[2024-06-15 10:17] VITALS: PULSE 97
[2024-06-15] MEDS: FLUCONAZOLE/NS 400 MG IVPB 400 MG/200 ML BAG 100 MG IV (10:36)
--- NOTE | 2024-06-15 11:54 | ESDS_ITS ---
<Statement entered by Rylan Isaacs MD - 06/20/24 14:46> I reviewed above note and agree with findings and plans. I have also personally examined the patient with medicine team and went over assessment and plan with medical team including employee communications intern and resident physician. Planned Discharge Date 06/15/24 DS: Providers Provider Date of admission: 06/13/24 16:15 Primary care physician: Amaya Valdes MD Admitting Provider: Gabriella Kim DO Attending Provider on Admission: Gabriella Kim DO Attending Provider on DC: Rylan Isaacs MD Discharging Provider: Reno Palacios MD DS: Diagnosis Discharge Diagnosis (1) Pneumonia with coccidioidomycosis: Status: Acute Problem List Completed Was Problem List Reviewed/Reconciled?: Yes Hospital Course Hospital Course Hospital course: Hospital Course: Mr Beyer is a 43-year-old male with past medical history of hypertension on losartan presenting to the ED for unrelenting epigastric/chest pain associated with shortness of breath, cough and fever will be admitted for extensive right pneumonia with pleural effusion and started on IV antibiotics with workup for secondary causes of pneumonia and possible ultrasound-guided thoracentesis. Problems on this admission: 1. Right-sided cocci pneumonia 2. Pleural effusion s/p thoracentesis 3. Acute Pleuritis 4. Sinus Tachycardia 5. Primary hypertension 6. Metabolic Dysfunction-Associated Steatotic Liver Disease Procedures: None Discharge instructions: - Follow up with your PCP within 1 week from [place]. If you dont have a PCP, call: [facility] [phone] , [address]. [place] - Continue Fluconazole 400mg daily as prescribed, for Coccidiodes [place] fever treatment. - Pain control with acetaminophen, take 2 tabs as needed for fever >99 or pain - Continue home losartan 100 mg p.o. daily - BMI of 31.3 ; you will benefit from outpatient GLP-1 treatment - Resume all other home medications - May return to ED if symptoms worsen. We are grateful to be able to participate in Mr Beyer's care. We wish him the best. - Reno Palacios MD Status at Discharge Cognitive/behavioral status at discharge: Returned to baseline. Time Spent with Patient Time attestation: Total time spent providing and/or coordinating discharge services: More than 50% Time spent: Greater than 30 minutes Exam Vital Signs Temp Pulse Resp BP Pulse Ox O2 Del Method 97.8 F 97 17 124/83 98 Room Air 06/15/24 07:22 06/15/24 10:17 06/15/24 07:22 06/15/24 08:57 06/15/24 07:22 06/15/24 07:22 Narrative Exam Constitutional Alert, oriented x3 and comfortable. On room air HEENT Vision grossly intact. Patent nares. Trachea midline. Respiratory Chest normal on inspection, mild wheezes on auscultation R>L. Cardiovascular S1 and S2 audible, RRR. No murmurs or carotid bruit. No gross JVD. Abdominal Soft and nontender to palpation. BS + Genitourinary No bladder tenderness, no flank pain. Normal to palpation. Musculoskeletal Extremities tone within normal limits. No LE edema. Neurological CN II - XII grossly intact. Extremity motor and sensation grossly intact. Skin Warm, dry and intact. No apparent lesions. Psychiatric Patient has a good affect, is cooperative. Discharge Plan Plan Patient Disposition: HOME (Self Care) Patient condition on transfer: Stable Care Plan Goals: - Follow up with your PCP within 1 week from [place]. If you dont have a PCP, call: [facility] [phone] , [address]. [place] - Continue Fluconazole 400mg daily as prescribed, for Coccidiodes [place] fever treatment. - Resume all other home medications - May return to ED if symptoms worsen. Prescriptions/Referrals Prescriptions/Med Rec: New fluconazole 200 mg tablet 400 mg PO QDAY 30 Days Qty: 60 2RF acetaminophen 500 mg tablet 1,000 mg PO Q6H PRN (Reason: fever or pain) 7 Days Qty: 30 0RF Continued losartan 100 mg tablet 100 mg PO QDAY cyclobenzaprine 10 mg tablet 10 mg PO TID Patient Comments: Was just prescribed 06/12/24, took only once that night and took 1 on 06/13/24. But it was prescribed because was thought it was a pulled muscle but now we know it was pneumonia. Referrals: Amaya Valdes MD [Primary Care Provider] - Patient/Caregiver Discharge Instructions Discharge Activity: resume usual activities Education Materials: Thoracentesis Dc Print Language: Divehi Stand Alone Forms: Audra Award Info., Patient Portal Info Letter Discharge Order Discharge Orders: Discharge (Routine); Ordered 06/15/24 Ordered By: Reno Palacios Quality Discharge Quality Measures VTE prophylaxis
[2024-06-15 11:58] VITALS: BP 132/78; PULSE 80; RESP 17; TEMP 36.6; O2SAT 98
[2024-06-18 07:04] LABS: Legionella Ag, EIA, Urine* NOT DETECTED
== END 2024-06-15 13:31 | disposition home or self-care (01) | DRG 194 ==
LOC: SERX 12:28 → SERHOLD 16:18 → S3NX 23:31
PROVIDERS: Nurse Practitioner Family; Admitting Provider Internal Medicine; Emergency Provider Emergency Medicine; PCP Family Medicine; Visit Provider Internal Medicine
DX: J18.9 Pneumonia, unspecified organism (principal); B38.2 Pulmonary coccidioidomycosis, unspecified; J91.8 Pleural effusion in other conditions classified elsewhere; M54.6 Pain in thoracic spine; I10 Essential (primary) hypertension; R00.0 Tachycardia, unspecified; K76.9 Liver disease, unspecified; Z79.899 Other long term (current) drug therapy
CPT/HCPCS: 36415; 71046; 71275; 76705; 76999; 80053; 80061; 80307; 81001; 82150; 82945; 83036; 83615; 83690; 83735; 83880; 84100; 84157; 84443; 84484; 85025; 85610; 86635; 86703; 87040; 87070; 87075; 87205; 87449; 87634; 87811; 89051; 93005; 93225; 96365; 96367; 96372; 99285; A4649; J0456; J0696; J1450; J1644; J1956; J2270; J7030; J7050; Q9967; A9270

== ENCOUNTER → 2024-06-26 | Outpatient (CLI) | payer BC, SELFPAY ==
[2024-06-26 16:45] LABS: Basophils # (Auto) 0.1 Thou/mm3 (0.0-0.2); Basophils % (Auto) 1 % (0-2.5); Eosinophils # (Auto) 0.9 Thou/mm3 (0.0-0.5); Eosinophils % (Auto) 9 % (0-10); Hematocrit 40.9 % (41.0-53.0); Hemoglobin 13.5 g/dL (13.5-16.0); Immature Granulocytes % (Auto) 1 % (0-0); Immature Granulocytes Auto 0.07 Thou/mm3 (0.00-0.00); Lymphocytes # (Auto) 1.6 Thou/mm3 (1.0-4.8); Lymphocytes % (Auto) 15 % (10-50); Mean Corpuscular Hemoglobin 29.5 pg (25.0-35.0); Mean Corpuscular Volume 90 fL (80-100); Monocytes # (Auto) 1.2 Thou/mm3 (0.0-0.8); Monocytes % (Auto) 12 % (0-12); Neutrophils # (Auto) 6.6 Thou/mm3 (1.8-7.7); Neutrophils % (Auto) 62 % (37-80); Nucleated Red Blood Cell % 0 /100 WBC (0); Platelet Count 626 Thou/mm3 (140-440); RDW Standard Deviation 40.4 fL (35.1-43.9); Red Blood Count 4.57 Miln/mm3 (4.50-5.90); White Blood Count 10.6 Thou/mm3 (3.8-10.6)
[2024-06-26 17:07] LABS: Alanine Aminotransferase 43 U/L (10-49); Albumin, Serum 3.9 gm/dL (3.5-5.0); Albumin/Globulin Ratio 1.1 (1.2-2.2); Alkaline Phosphatase 91 U/L (46-116); Anion Gap 9 (7-16); Aspartate Amino Transferase 14 U/L (0-34); BUN/Creatinine Ratio 13 Ratio (12-20); Bilirubin,Total 0.3 mg/dL (0.3-1.2); Blood Urea Nitrogen 12 mg/dL (9-23); Calcium 8.5 mg/dL (8.3-10.6); Calcium (Corrected) 8.6 mg/dL (8.5-10.1); Carbon Dioxide 27.3 mMol/L (20.0-31.0); Chloride 104 mMol/L (98-107); Creatinine (Component) 0.9 mg/dL (0.6-1.3); Globulin 3.4 gm/dL (2.3-3.5); Glucose 94 mg/dL (74-106); Osmolality,Calculated 279 (275-295); Potassium 4.8 mMol/L (3.4-5.1); Sodium 140 mMol/L (136-145); Total Protein 7.3 gm/dL (5.7-8.2); eGFR > 60 See Note
== END | disposition home or self-care (01) ==
LOC: COPL 15:49
PROVIDERS: PCP Family Medicine; Referring Provider Registered Nurse; Visit Provider Registered Nurse
DX: J18.9 Pneumonia, unspecified organism (principal); R25.2 Cramp and spasm
CPT/HCPCS: 36415; 80053; 83735; 85025

== ENCOUNTER 2024-07-04 14:19 | Inpatient (IN) | payer BC, SELFPAY ==
[2024-07-04] VITALS (9 sets, daily range): BP systolic 122–133; BP diastolic 85–95; PULSE 102–128; RESP 18–32; TEMP 37.1–38.1; O2SAT 92–96; BMI 29.4; BMI 29.1
--- NOTE | 2024-07-04 14:40 | PC.NURSE ---
sepsis alert called
[2024-07-04 15:09] LABS: Collection Type, Urine Clean Catch
[2024-07-04 15:10] LABS: Lactate (Lactic Acid) 1.8 mMol/L (0.4-2.0)
[2024-07-04 15:11] LABS: Basophils # (Auto) 0.1 Thou/mm3 (0.0-0.2); Basophils % (Auto) 1 % (0-2.5); Eosinophils # (Auto) 0.4 Thou/mm3 (0.0-0.5); Eosinophils % (Auto) 3 % (0-10); Hematocrit 37.8 % (41.0-53.0); Hemoglobin 13.1 g/dL (13.5-16.0); Immature Granulocytes % (Auto) 0 % (0-0); Immature Granulocytes Auto 0.04 Thou/mm3 (0.00-0.00); Lymphocytes # (Auto) 1.5 Thou/mm3 (1.0-4.8); Lymphocytes % (Auto) 13 % (10-50); Mean Corpuscular HGB Conc 34.7 g/dl (31.0-37.0); Mean Corpuscular Hemoglobin 29.5 pg (25.0-35.0); Mean Corpuscular Volume 85 fL (80-100); Monocytes # (Auto) 1.2 Thou/mm3 (0.0-0.8); Monocytes % (Auto) 11 % (0-12); Neutrophils # (Auto) 8.1 Thou/mm3 (1.8-7.7); Neutrophils % (Auto) 72 % (37-80); Nucleated Red Blood Cell % 0 /100 WBC (0); Platelet Count 392 Thou/mm3 (140-440); RDW Standard Deviation 38.5 fL (35.1-43.9); Red Blood Count 4.44 Miln/mm3 (4.50-5.90); White Blood Count 11.3 Thou/mm3 (3.8-10.6)
--- NOTE | 2024-07-04 15:17 | EDNOTE_ITS ---
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 The patient reported that he never got better, and he has been compliant with his medications. His urine legionella tests were negative. He admitted fever, sweating, nausea but denied any headache, lightheadedness, sore throat, abdominal pain, any changes in bowel or bladder habit, vomiting or leg swelling. Related Data Home Medications ?Medication ?Instructions ?Recorded ?Confirmed cyclobenzaprine 10 mg tablet 10 mg PO TID 06/14/2404/09 losartan 100 mg tablet 100 mg PO QDAY 06/14/2404/09 Previous Rx's ?Medication ?Instructions ?Recorded fluconazole 200 mg tablet 400 mg (2 x 200 mg) PO QDAY Cocci 06/15/24 Valley fever 1 month #60 tabs Allergies Allergy/AdvReac Type Severity Reaction Status Date / Time No Known Allergies Allergy Verified 06/14/24 00:17 Review of Systems Review of Systems Systems Reviewed: All systems reviewed, normal except as documented (Above) ED Exam Narrative Physical exam: General: No acute distress, Alert and Oriented x 3 HEENT: Moist mucous membranes, oropharynx clear Neck: Supple, No masses, No JVD CVS: S1S2 Regular rate and rhythm, No murmurs, rubs or gallops Lungs: Complete absence of breath sound over right middle and lower lobe, normal breath sound over right upper and entire left lung, no wheeze or crackles Abd: Soft, NT/ND, +BS, no organomegaly Ext: No edema, warm and well perfused Skin: No rash Psych: Mildly anxious Course Quality Measures none Orders Category Date Time Status Admit to Inpatient Status Routine Admission 07/04/24 16:15 Active Patient Condition Routine Admission 07/04/24 16:15 Ordered COVID-19 Screening Questionnaire NOW Care 07/04/24 15:00 Active 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 [employer] STAT Care 07/04/24 14:40 Active Continuous Pulse Oximetry STAT Care 07/04/24 14:40 Completed Decision to Admit X1 Care 07/04/24 14:57 Completed EKG (ED ONLY) *Do not use* NOW Care 07/04/24 15:30 Completed Flu & Pneumonia Vaccine Screen ONCE Care 07/04/24 16:20 Active Insert IV NOW Care 07/04/24 14:40 Active NPO NOW Care 07/04/24 16:18 Active NPO STAT Care 07/04/24 14:40 Active Notify provider NEEDED Care 07/04/24 16:15 Active Sequential Compression Device QSHIFT Care 07/04/24 16:20 Active Strict Intake and Output Routine Care 07/04/24 14:40 Ordered Diet NPO (NOW) Diet 07/04/24 16:18 Active EKG (ED Only) Stat Exams 07/04/24 15:30 Draft US thoracentesis Stat Exams 07/04/24 14:38 Ordered Amylase,Pleural Fluid Routine Lab 07/04/24 15:36 Ordered B-Type Natriuretic Peptide Stat Lab 07/04/24 15:03 Completed Blood Culture (Lab) Stat Lab 07/04/24 15:00 Received Body Fld Cult w Gladis & Gram St Routine Lab 07/04/24 15:36 Ordered CBC AM DRAW Lab 07/05/24 05:00 Ordered CBC AM DRAW Lab 07/06/24 05:00 Ordered CBC AM DRAW Lab 07/07/24 05:00 Ordered CBC AM DRAW Lab 07/08/24 05:00 Ordered CBC AM DRAW Lab 07/09/24 05:00 Ordered CBC Stat Lab 07/04/24 15:03 Completed Comprehensive Metabolic Panel AM DRAW Lab 07/05/24 05:00 Ordered Comprehensive Metabolic Panel AM DRAW Lab 07/06/24 05:00 Ordered Comprehensive Metabolic Panel AM DRAW Lab 07/07/24 05:00 Ordered Comprehensive Metabolic Panel AM DRAW Lab 07/08/24 05:00 Ordered Comprehensive Metabolic Panel AM DRAW Lab 07/09/24 05:00 Ordered Comprehensive Metabolic Panel Stat Lab 07/04/24 15:03 Completed Glucose,Pleural Fluid Routine Lab 07/04/24 15:36 Ordered LDH (Lactate Dehydrogenase) Stat Lab 07/04/24 15:03 Completed LDH,Pleural Fluid Routine Lab 07/04/24 15:36 Ordered Lactate (Lactic Acid) Stat Lab 07/04/24 15:03 Completed Legionella Ag, EIA, Urine* Stat Lab 07/04/24 Ordered Lipase Stat Lab 07/04/24 15:03 Completed Magnesium AM DRAW Lab 07/05/24 05:00 Ordered Magnesium AM DRAW Lab 07/06/24 05:00 Ordered Magnesium AM DRAW Lab 07/07/24 05:00 Ordered Magnesium AM DRAW Lab 07/08/24 05:00 Ordered Magnesium AM DRAW Lab 07/09/24 05:00 Ordered Magnesium Stat Lab 07/04/24 15:03 Completed Partial Thromboplastin Time Stat Lab 07/04/24 15:03 Completed Phosphorous AM DRAW Lab 07/05/24 05:00 Ordered Phosphorous AM DRAW Lab 07/06/24 05:00 Ordered Phosphorous AM DRAW Lab 07/07/24 05:00 Ordered Phosphorous AM DRAW Lab 07/08/24 05:00 Ordered Phosphorous AM DRAW Lab 07/09/24 05:00 Ordered Phosphorous Stat Lab 07/04/24 15:03 Completed Pleural Fld Cell Count Diff Routine Lab 07/04/24 15:36 Ordered Procalcitonin Stat Lab 07/04/24 15:03 Completed Protein Total,Pleural Fluid Routine Lab 07/04/24 15:36 Ordered Prothrombin Time with INR Stat Lab 07/04/24 15:03 Completed RSV [Respiratory Syncytial Virus Ag] Stat Lab 07/04/24 16:25 Ordered Sputum Culture and Gram Stain Routine Lab 07/04/24 16:23 Ordered Troponin I Stat Lab 07/04/24 15:03 Completed Urinalysis Stat Lab 07/04/24 15:03 Received Urine Culture Stat Lab 07/04/24 14:40 Ordered ALBUTEROL RT 0.5ml [Proventil Rt 0.5ml] Med 07/04/24 16:28 Ordered 2.5 mg INH Q6HRRT PRN ALBUTEROL RT 0.5ml [Proventil Rt 0.5ml] Med 07/04/24 14:57 Discontinued 2.5 mg INH X1 ONE Acetaminophen Tab [Tylenol ES Tab] Med 07/04/24 14:42 Discontinued 1,000 mg PO X1 ONE Acetaminophen Tab [Tylenol Tab] Med 07/04/24 16:15 Ordered 1,000 mg PO Q6H PRN Acetaminophen Tab [Tylenol Tab] Med 07/04/24 16:15 Ordered 650 mg PO Q6H PRN Doxycycline Inj [Vibramycin Inj] 100 mg Med 07/04/24 21:00 Active Sodium Chloride 0.9% (Pop) [NS 0.9% mini bag] 100 ml IV BID Fluconazole [Diflucan] Med 07/04/24 16:30 Ordered 400 mg PO QDAY Morphine Inj Med 07/04/24 16:15 Ordered 2 mg IVP Q2H PRN Ondansetron Inj [Zofran Inj] Med 07/04/24 16:15 Ordered 4 mg IVP Q6H PRN Sodium Chloride Rt Willow 0.9% [NS Rt Willow 0.9%] Med 07/04/24 14:57 Active 3 ml INH PRN PRN Sodium Chloride Rt Willow 0.9% [NS Rt Willow 0.9%] Med 07/04/24 16:15 Ordered 3 ml INH PRN PRN Sodium Chloride Rt Willow 10% [NS Rt Willow 10%] Med 07/04/24 16:20 Once 5 ml INH X1 ONE cefTRIAXone/D5w 1gm IV premix [Rocephin/D5w 1gm IV Med 07/04/24 16:27 Ordered premix] 1 gm in 50 ml IV QDAY cefTRIAXone/D5w 1gm IV premix [Rocephin/D5w 1gm IV Med 07/04/24 14:42 Discontinued premix] 1 gm in 50 ml IV X1 Code Status Routine Oth 07/04/24 16:15 Ordered Oxygen Delivery DAILY RT 07/04/24 16:18 Active Sputum Induction PRN RT 07/04/24 16:30 Ordered Vital Signs Vital signs: Vital Signs Temperature 100.5 F H 07/04/24 14:32 Pulse Rate 128 H 07/04/24 14:32 Respiratory Rate 24 H 07/04/24 14:32 Blood Pressure 122/87 H 07/04/24 14:32 Pulse Oximetry (%) 94 L 07/04/24 14:32 Oxygen Delivery Method Room Air 07/04/24 14:32 Shortness of Breath / Dyspnea MDM Narrative MDM Narrative:: The patient is a 43-year-old male with significant past medical history of hypertension and valley fever (IgM positive, 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 The patient reported that he never got better, and he has been compliant with his medications. His urine legionella tests were negative. He admitted fever, sweating, nausea but denied any headache, lightheadedness, sore throat, abdominal pain, any changes in bowel or bladder habit, vomiting or leg swelling. Vitals revealed BP 122/87, pulse 128, RR 24, temperature 100.5, saturating 94% on room air. Labs revealed white count 11.3, RBC 4.44, hemoglobin 13.1, coagula tion panel WNL, CMP revealed BUN 7, creatinine 1.0, blood sugar 149, Pro-Omkar negative. EKG revealed sinus tachy with HR 118, and CXR revealed much larger rt pleural effusion than previous, covering up to mid rt lung. Patient data External records reviewed:: [facility] previous records Clinical information provided by:: patient Social determinants that could affect healthcare access:: none Patient has the following chronic illnesses:: See above How is presenting disease/condition affected by chronic disease/condition?: exacerbated by Evaluation data The following diagnostics were reviewed and interpreted by me:: lab results and radiology exam(s) Lab and/or radiology exams considered but not ordered:: None Interpretation Summary: See above Medications / Prescriptions Medications or Prescriptions considered but not ordered:: None Medication administrations:: Medication Administration History Acetaminophen (Acetaminophen 325 Mg Tablet) 650 mg PO Q6H PRN PRN Reason: Fever >99.5 Stop: 08/03/24 16:14 Acetaminophen (Acetaminophen 325 Mg Tablet) 1,000 mg PO Q6H PRN PRN Reason: PAIN SCALE 1-3 (mild Stop: 08/03/24 16:14 Albuterol (Albuterol Rt 2.5 Mg/0.5 Ml Nebu) 2.5 mg INH Q6HRRT PRN PRN Reason: shortness of breath Stop: 08/03/24 18:59 Fluconazole (Fluconazole 100 Mg Tablet) 400 mg PO QDAY CYNTHIA Stop: 07/11/24 16:29 Doxycycline Hyclate 100 mg/ (Sodium Chloride) 100 mls @ 100 mls/hr IV BID CYNTHIA Stop: 07/11/24 20:59 Ceftriaxone Sodium/Dextrose (Rocephin/D5w 1gm Iv Premix) 1 gm in 50 mls @ 100 mls/hr IV QDAY CYNTHIA Stop: 07/11/24 16:26 Morphine Sulfate (Morphine Sulf Inj 10 Mg/Ml Vial) 2 mg IVP Q2H PRN PRN Reason: PAIN SCALE 7-10 (Severe Stop: 07/09/24 16:14 Ondansetron HCl (Ondansetron Inj 2 Mg/Ml Inj 2 Ml) 4 mg IVP Q6H PRN; Protocol PRN Reason: NAUSEA OR VOMITING Stop: 08/03/24 16:14 Sodium Chloride (Sodium Chloride Rt Willow 0.9% 3 Ml Nebu) 3 ml INH PRN PRN PRN Reason: SOLN Stop: 08/03/24 14:56 Last Admin: 07/04/24 15:30 Dose: 3 ml Documented By: ABELINO Sodium Chloride (Sodium Chloride Rt Willow 0.9% 3 Ml Nebu) 3 ml INH PRN PRN PRN Reason: SOLN Stop: 08/03/24 16:14 Sodium Chloride (Sodium Chloride Rt 10% 15 Ml Nebu) 5 ml INH X1 ONE Stop: 07/04/24 16:21 Discontinued Medications Acetaminophen (Acetaminophen 500 Mg Tablet) 1,000 mg PO X1 ONE Stop: 07/04/24 14:43 Last Admin: 07/04/24 15:34 Dose: 1,000 mg Documented By: MARIA DEL CARMEN Albuterol (Albuterol Rt 2.5 Mg/0.5 Ml Nebu) 2.5 mg INH X1 ONE Stop: 07/04/24 14:58 Last Admin: 07/04/24 15:30 Dose: 2.5 mg Documented By: ABELINO Ceftriaxone Sodium/Dextrose (Rocephin/D5w 1gm Iv Premix) 1 gm in 50 mls @ 100 mls/hr IV X1 ONE Stop: 07/04/24 15:11 Last Admin: 07/04/24 15:34 Dose: 100 mls/hr Documented By: MARIA DEL CARMEN See above Consultations Consultation(s) initiated? (list below): Yes Consultation #1 (Physician, Specialty, Details): Hospitalist team Dr. Main Mendosa MD Diagnosis Shortness of Breath Differential Diagnosis: community acquired pneumonia and other (Coccidomycosis Pneumonia, Pleural effusion) Most likely diagnosis given after review of the tests above:: Rt. Pleural effusion Admission Indicated Admission indicated?: indicated Admission Request Was there a request for admission?: Yes Admission Attestation Admission request attestation: Discussed case with Dr. Mendosa from Hospitalist service regarding admission. Discussed patients ED course, exam findings, labs, and radiology results. The Hospitalist agrees to accept the patient for admission. Disposition Plan Disposition Plan: Admit Discharge Plan Plan Patient Disposition: Admit Acute Care w/in Hospital Prescriptions/Referrals Prescriptions/Med Rec: No Action losartan 100 mg tablet 100 mg PO QDAY cyclobenzaprine 10 mg tablet 10 mg PO TID Patient Comments: Was just prescribed 06/12/24, took only once that night and took 1 on 06/13/24. But it was prescribed because was thought it was a pulled muscle but now we know it was pneumonia. fluconazole 200 mg tablet 400 mg PO QDAY 30 Days Qty: 60 2RF Referrals: Amaya Valdes MD [Primary Care Provider] - In 1 week Problem List Clinical Impression: Pneumonia with coccidioidomycosis, Pleural effusion on right Patient/Caregiver Discharge Instructions Print Language: Spanish Stand Alone Forms: Audra Award Info., Patient Portal Info Letter
[2024-07-04 15:26] LABS: INR 1.1 (0.9-1.3); Prothrombin Time 11.5 Seconds (9.0-12.2)
[2024-07-04] MEDS: ALBUTEROL RT 2.5 MG/0.5 ML NEBU INH (15:30)
[2024-07-04] MEDS: SODIUM CHLORIDE RT SOL 0.9% 3 ML NEBU INH (15:30)
--- NOTE | 2024-07-04 15:30 | EKG_ITS ---
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
[2024-07-04] MEDS: ACETAMINOPHEN 500 MG TABLET 1000 MG PO (15:34)
[2024-07-04] MEDS: cefTRIAXone/D5w 1gm IV premix 1 GM/50 ML BAG IV (15:34)
[2024-07-04 15:36] LABS: Alanine Aminotransferase 28 U/L (10-49); Albumin, Serum 3.8 gm/dL (3.5-5.0); Alkaline Phosphatase 77 U/L (46-116); Anion Gap 9 (7-16); Aspartate Amino Transferase 18 U/L (0-34); BUN/Creatinine Ratio 7 Ratio (12-20); Bilirubin,Total 0.3 mg/dL (0.3-1.2); Blood Urea Nitrogen 7 mg/dL (9-23); Calcium 8.6 mg/dL (8.3-10.6); Calcium (Corrected) 8.8 mg/dL (8.5-10.1); Carbon Dioxide 27.2 mMol/L (20.0-31.0); Chloride 103 mMol/L (98-107); Estimated Creatinine Clearance 98.4 mL/min (>60); Globulin 3.7 gm/dL (2.3-3.5); Glucose 149 mg/dL (74-106); LDH (Lactate Dehydrogenase) 157 U/L (120-246); Lipase 29 U/L (12-53); Osmolality,Calculated 278 (275-295); Phosphorous 2.9 mg/dL (2.4-5.1); Procalcitonin 0.04 ng/ml (0.0-0.49); Sodium 139 mMol/L (136-145); Total Protein 7.5 gm/dL (5.7-8.2); Troponin I < 0.002 ng/mL (0.0-0.045); eGFR > 60 See Note
[2024-07-04 15:51] LABS: B-Type Natriuretic Peptide < 20 pg/mL (0-100)
--- NOTE | 2024-07-04 16:29 | ESHP_ITS ---
<Statement entered by Rylan Isaacs MD - 07/14/24 07:23> I reviewed above note and agree with findings and plans. I have also personally examined the patient with medicine team and went over assessment and plan with medical team including fashion buying internship and resident physician. Documentation for date of: 07/04/24 HPI History of Present Illness Chief complaint: fever, chills History of present illness: 43-year-old male with past medical history of hypertension, recent diagnosis of valley fever from previous admission. Patient was discharged on 06/15/2024 and states he initially felt better and then just a few days ago started developing fevers chills and shortness of breath. Patient does state he was being compliant with his medications. Patient also states some pleuritic chest pain on the right side that gets worse with taking deep breaths. At this time patient denies headache, lightheadedness, sore throat, abdominal pain, changes in urination, changes in bowel habits, vomiting. ED course: ED vitals: BP [birth year]1986, HR 128, RR 24, temperature 100.5 ?F, saturating 94% on room air, ED labs: Mild leukocytosis, glucose 149, chest x-ray was ordered and showed right large pleural effusion. In the ED patient received ceftriaxone, 1 g acetaminophen, albuterol PMHx: As stated above SxHx: None Allergies: NKDA Medications: Losartan 100 mg p.o. 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 ROS: All 12 systems assessed and the patient denies unless otherwise stated in HPI Review of Systems Review of Systems Systems Reviewed: All systems reviewed, normal except as documented Narrative Review of Systems: ROS: All 12 systems assessed and the patient denies unless otherwise stated in HPI Exam Vital Signs Temp Pulse Resp BP Pulse Ox O2 Del Method 99.0 F 113 H 26 H 125/95 H 92 L Room Air 07/04/24 16:23 07/04/24 16:23 07/04/24 16:23 07/04/24 16:23 07/04/24 16:23 07/04/24 16:23 Narrative Exam Physical Exam GENERAL: NAD, AAOx3, diaphoretic HEENT: Dry mucosa. Eyes open, symmetrical, & clear CARDIO: Heart RRR, no obvious murmurs PULM: No noted coughing/dyspnea decreased breath sounds on the right, left side clear to auscultation GI: Abdomen soft, nondistended, no pain on palpation. BS+ SKIN/MSK/EXT: No wounds/rashes/edema/amputations, no pain on palpation. Pedal pulses present B/L NEURO: AAOx3, no focal neuro deficits, able to move all 4 extremities Results: Labs 07/04/24 15:03 07/04/24 15:03 Labs: Short CBC 07/04/24 Range/Units 15:03 WBC 11.3 H (3.8-10.6) Thou/mm3 Hgb 13.1 L (13.5-16.0) g/dL Hct 37.8 L (41.0-53.0) % Plt Count 392 D (140-440) Thou/mm3 BMP 07/04/24 15:03 Sodium 139 Potassium 4.0 Chloride 103 Carbon Dioxide 27.2 BUN 7 L Creatinine 1.0 Glucose 149 H Calcium 8.6 Cardiac Enzymes 07/04/24 Range/Units 15:03 Troponin I < 0.002 (0.0-0.045) ng/mL Liver Function 07/04/24 Range/Units 15:03 Total Bilirubin 0.3 (0.3-1.2) mg/dL AST 18 (0-34) U/L ALT 28 (10-49) U/L Alkaline Phosphatase 77 (46-116) U/L Albumin 3.8 (3.5-5.0) gm/dL Quality Measures Quality Measures none Medications Home Medications and Allergies Home Medications ?Medication ?Instructions ?Recorded ?Confirmed ?Type cyclobenzaprine 10 mg tablet 10 mg PO TID 06/14/2404/09 History losartan 100 mg tablet 100 mg PO QDAY 06/14/2404/09 History Allergies Allergy/AdvReac Type Severity Reaction Status Date / Time No Known Allergies Allergy Verified 06/14/24 00:17 Visit Medications Doxycycline Hyclate 100 mg/ (Sodium Chloride) 100 mls @ 100 mls/hr IV BID CYNTHIA Stop: 07/11/24 20:59 Sodium Chloride (Sodium Chloride Rt Willow 0.9% 3 Ml Nebu) 3 ml INH PRN PRN PRN Reason: SOLN Stop: 08/03/24 14:56 Last Admin: 07/04/24 15:30 Dose: 3 ml Discontinued Medications Acetaminophen (Acetaminophen 500 Mg Tablet) 1,000 mg PO X1 ONE Stop: 07/04/24 14:43 Last Admin: 07/04/24 15:34 Dose: 1,000 mg Albuterol (Albuterol Rt 2.5 Mg/0.5 Ml Nebu) 2.5 mg INH X1 ONE Stop: 07/04/24 14:58 Last Admin: 07/04/24 15:30 Dose: 2.5 mg Ceftriaxone Sodium/Dextrose (Rocephin/D5w 1gm Iv Premix) 1 gm in 50 mls @ 100 mls/hr IV X1 ONE Stop: 07/04/24 15:11 Last Admin: 07/04/24 15:34 Dose: 100 mls/hr Assessment & Plan Plan 43-year-old male with past medical history of hypertension, recent diagnosis of valley fever and recent discharge on 06/15/2024 presented to the ED due to fevers chills and shortness of breath. Patient will be admitted for right pleural effusion secondary to coccidiomycosis versus superimposed bacterial pneumonia. #Right-sided pleural effusion #Cocci pneumonia #Pleuritis #? Superimposed bacterial pneumonia On arrival patient was spiking fevers, tachycardic, tachypneic, saturating 94% on room air, leukocytosis however no evidence of endorgan damage CXR: Large right sided pleural effusion previous admission had US to evaluate pleural effusion however was not tapped due to insufficient fluid ? Fluconazole 400 mg daily (07/04- ? On ceftriaxone and doxycycline (07/04?) ? pending Ultrasound-guided right thoracentesis ? Follow-up cytology and fluid analysis studies ? Follow-up cultures, RSV, legionella ? Follow UA #Hypertension At home takes losartan 100 mg daily ? Will resume when appropriate Health Maintenance: Disposition: Med telemetry Fluids: None Feeding: cardiac Thrombo prophylaxis: SCDs Gastric Ulcer prophylaxis: Not indicated CODE STATUS: Full code Case discussed with my attending Dr. Ferny Mendosa MD PGY-1
[2024-07-04 17:16] LABS: Bilirubin,Urine Negative (Negative); Blood,Urine 3+ (Negative); Color,Urine Yellow (Lt Yel-Yel); Glucose, Urine Negative (Negative); Ketones,Urine Negative (Negative); Leukocyte Esterase,Urine Negative (Negative); Nitrite,Urine Negative (Negative); Protein,Urine 1+ (Neg - Trace); RBC,Urine 727 /hpf (0-3); Specific Gravity,Urine 1.038 (1.001-1.035); Squamous Epithelial Cell,Urine < 1 /hpf (0-5); Urobilinogen,Urine Negative mg/dL (0.0-1.0); WBC,Urine 10 /hpf (0-5)
[2024-07-04 17:25] LABS: Clarity,Urine Hazy (Clear/Hazy)
[2024-07-04] MEDS: FLUCONAZOLE 100 MG TABLET 400 MG PO (17:57)
[2024-07-04] MEDS: SODIUM CHLORIDE RT 10% 15 ML NEBU 5 ML INH (18:10)
--- NOTE | 2024-07-04 18:17 | PC.RT ---
pt able to expectorate during sputum induction tx sent to lab small menendez thin sputum.
[2024-07-04] MEDS: MORPHINE SULF INJ 10 MG/ML VIAL 2 MG IVP (21:52)
[2024-07-04] MEDS: DOXYCYCLINE INJ 100 MG in SODIUM CHLORIDE 0.9% (POP) 100 ML IV (21:59)
[2024-07-05] VITALS (8 sets, daily range): BP systolic 119–134; BP diastolic 81–93; PULSE 86–114; RESP 15–21; TEMP 36.1–37.4; O2SAT 92–98
--- NOTE | 2024-07-05 | XR_ITS ---
Examination: AP chest single view Technique one AP semiupright portable chest single view Date and time: July 06, 2023 11:27 AM Comparison July 04, 2024 INDICATIONS: Post right thoracentesis today FINDINGS: Decrease in right pleural fluid No pneumothorax post thoracentesis Atelectasis and/or pneumonia at the right base, follow-up is needed IMPRESSION: No pneumothorax post thoracentesis
[2024-07-05] MEDS: MORPHINE SULF INJ 10 MG/ML VIAL 2 MG IVP ×3 (04:40→21:09)
[2024-07-05 05:56] LABS: Basophils # (Auto) 0.1 Thou/mm3 (0.0-0.2); Basophils % (Auto) 1 % (0-2.5); Eosinophils # (Auto) 0.5 Thou/mm3 (0.0-0.5); Eosinophils % (Auto) 4 % (0-10); Hematocrit 36.9 % (41.0-53.0); Hemoglobin 12.7 g/dL (13.5-16.0); Immature Granulocytes % (Auto) 1 % (0-0); Immature Granulocytes Auto 0.05 Thou/mm3 (0.00-0.00); Lymphocytes # (Auto) 1.6 Thou/mm3 (1.0-4.8); Lymphocytes % (Auto) 15 % (10-50); Mean Corpuscular HGB Conc 34.4 g/dl (31.0-37.0); Mean Corpuscular Hemoglobin 29.5 pg (25.0-35.0); Mean Corpuscular Volume 86 fL (80-100); Monocytes # (Auto) 1.4 Thou/mm3 (0.0-0.8); Monocytes % (Auto) 13 % (0-12); Neutrophils # (Auto) 7.2 Thou/mm3 (1.8-7.7); Neutrophils % (Auto) 67 % (37-80); Nucleated Red Blood Cell % 0 /100 WBC (0); Platelet Count 314 Thou/mm3 (140-440); White Blood Count 10.9 Thou/mm3 (3.8-10.6)
[2024-07-05 06:21] LABS: Respiratory Syncytial Virus Ag Negative (Negative)
[2024-07-05 06:23] LABS: Alanine Aminotransferase 26 U/L (10-49); Albumin, Serum 3.6 gm/dL (3.5-5.0); Alkaline Phosphatase 74 U/L (46-116); Anion Gap 9 (7-16); Aspartate Amino Transferase 18 U/L (0-34); BUN/Creatinine Ratio 8 Ratio (12-20); Bilirubin,Total 0.3 mg/dL (0.3-1.2); Blood Urea Nitrogen 6 mg/dL (9-23); Calcium 8.2 mg/dL (8.3-10.6); Calcium (Corrected) 8.5 mg/dL (8.5-10.1); Carbon Dioxide 26.9 mMol/L (20.0-31.0); Chloride 102 mMol/L (98-107); Creatinine (Component) 0.8 mg/dL (0.6-1.3); Estimated Creatinine Clearance 122.3 mL/min (>60); Globulin 3.5 gm/dL (2.3-3.5); Glucose 112 mg/dL (74-106); Magnesium 1.7 mg/dL (1.6-2.6); Osmolality,Calculated 274 (275-295); Phosphorous 3.8 mg/dL (2.4-5.1); Potassium 4.4 mMol/L (3.4-5.1); Sodium 138 mMol/L (136-145); Total Protein 7.1 gm/dL (5.7-8.2); eGFR > 60 See Note
[2024-07-05] MEDS: FLUCONAZOLE 100 MG TABLET 400 MG PO (08:31)
[2024-07-05] MEDS: cefTRIAXone/D5w 1gm IV premix 1 GM/50 ML BAG IV (08:32)
[2024-07-05] MEDS: DOXYCYCLINE INJ 100 MG in SODIUM CHLORIDE 0.9% (POP) 100 ML IV ×2 (08:32→21:01)
--- NOTE | 2024-07-05 10:30 | XR_ITS ---
Examination: Ultrasound-guided right thoracentesis Ultrasound right hemithorax Ultrasound left hemithorax Date and time: July 05, 2024 1040 hours INDICATIONS: Difficulty breathing this week, large right pleural effusion on chest x-ray July 04, 2024 TECHNIQUE AND FINDINGS: Sonographic images right and left hemithoraces demonstrate large right pleural effusion no left pleural effusion Informed consent provided. Timeout performed. Skin prepped over the right hemithorax and sterile drape applied maximum barrier sterile technique hand hygiene ultrasound sterile technique 1% lidocaine administered for local anesthesia Utilizing ultrasonographic guidance 5 [place] catheter placed in the right pleural space 3300 cc pleural fluid removed Estimated blood loss 0 cc IMPRESSION: Successful ultrasound-guided right thoracentesis, 3300 cc pleural fluid removed
[2024-07-05] MEDS: SODIUM CHLORIDE 0.9% 1000 ML 1,000 ML 75 ML IV (11:46)
--- NOTE | 2024-07-05 13:47 | ESPR_ITS ---
Documentation for date of: 07/05/24 Subjective Subjective Interval history: Patient seen today at the bedside found awake, alert, orientedx3. No overnight events reported. Vitals and labs reviewed. Patient scheduled for thoracentesis today had 3.3 L removed and was started on IV fluids as patient became diaphoretic postprocedure. Will continue with fluconazole and IV antibiotics for pneumonia. Exam Vital Signs Temp Pulse Resp BP Pulse Ox O2 Del Method O2 Flow Rate 97.9 F 95 19 119/89 H 97 Nasal Cannula 2 07/05/24 12:00 07/05/24 12:00 07/05/24 12:00 07/05/24 12:00 07/05/24 12:00 07/05/24 04:00 07/05/24 06:55 Narrative Exam Physical Exam GENERAL: NAD, AAOx3, diaphoretic HEENT: Dry mucosa. Eyes open, symmetrical, & clear CARDIO: Heart RRR, no obvious murmurs PULM: No noted coughing/dyspnea decreased breath sounds on the right, left side clear to auscultation GI: Abdomen soft, nondistended, no pain on palpation. BS+ SKIN/MSK/EXT: No wounds/rashes/edema/amputations, no pain on palpation. Pedal pulses present B/L NEURO: AAOx3, no focal neuro deficits, able to move all 4 extremities Objective Labs 07/06/24 05:07 07/06/24 05:07 Labs: Laboratory Results - last 24 hr 07/04/24 07/04/24 07/05/24 15:03 16:59 04:32 WBC 11.3 H RBC 4.44 L Hgb 13.1 L Hct 37.8 L MCV 85 MCH 29.5 MCHC 34.7 RDW Std Deviation 38.5 Plt Count 392 D Neut % (Auto) 72 Lymph % (Auto) 13 [place] % (Auto) 11 Eos % (Auto) 3 Baso % (Auto) 1 Neut # (Auto) 8.1 H Lymph # (Auto) 1.5 [place] # (Auto) 1.2 H Eos # (Auto) 0.4 Baso # (Auto) 0.1 Immature Gran # (Auto) 0.04 H Absolute Nucleated RBC 0.00 Immature Gran % 0 Nucleated RBC % 0 PT 11.5 INR 1.1 APTT 29.0 Sodium 139 Potassium 4.0 Chloride 103 Carbon Dioxide 27.2 Anion Gap 9 BUN 7 L Creatinine 1.0 Estim Creat Clear Calc 98.4 eGFR > 60 BUN/Creatinine Ratio 7 L Glucose 149 H Calculated Osmolality 278 Lactic Acid 1.8 1.0 Calcium 8.6 Corrected Calcium 8.8 Phosphorus 2.9 Magnesium 2.0 Total Bilirubin 0.3 AST 18 ALT 28 Alkaline Phosphatase 77 Lactate Dehydrogenase 157 Troponin I < 0.002 B-Natriuretic Peptide < 20 Total Protein 7.5 Albumin 3.8 Globulin 3.7 H Albumin/Globulin Ratio 1.0 L Lipase 29 Procalcitonin 0.04 Ur Collection Type Clean Catch Urine Color Yellow Urine Clarity Hazy Urine pH 6.0 Ur Specific [place] 1.038 H Urine Protein 1+ A Urine Glucose (UA) Negative Urine Ketones Negative Urine Blood 3+ A Urine Nitrite Negative Urine Bilirubin Negative Urine Urobilinogen (Auto) Negative Ur Leukocyte Esterase Negative Urine RBC 727 H Urine WBC 10 H Ur Squamous Epith Cells < 1 Urine Bacteria None RSV Rapid Negative 07/05/24 05:04 WBC 10.9 H RBC 4.30 L Hgb 12.7 L Hct 36.9 L MCV 86 MCH 29.5 MCHC 34.4 RDW Std Deviation 39.0 Plt Count 314 D Neut % (Auto) 67 Lymph % (Auto) 15 [place] % (Auto) 13 H Eos % (Auto) 4 Baso % (Auto) 1 Neut # (Auto) 7.2 Lymph # (Auto) 1.6 [place] # (Auto) 1.4 H Eos # (Auto) 0.5 Baso # (Auto) 0.1 Immature Gran # (Auto) 0.05 H Absolute Nucleated RBC 0.00 Immature Gran % 1 H Nucleated RBC % 0 PT INR APTT Sodium 138 Potassium 4.4 Chloride 102 Carbon Dioxide 26.9 Anion Gap 9 BUN 6 L Creatinine 0.8 Estim Creat Clear Calc 122.3 eGFR > 60 BUN/Creatinine Ratio 8 L Glucose 112 H Calculated Osmolality 274 L Lactic Acid Calcium 8.2 L Corrected Calcium 8.5 Phosphorus 3.8 Magnesium 1.7 Total Bilirubin 0.3 AST 18 ALT 26 Alkaline Phosphatase 74 Lactate Dehydrogenase Troponin I B-Natriuretic Peptide Total Protein 7.1 Albumin 3.6 Globulin 3.5 Albumin/Globulin Ratio 1.0 L Lipase Procalcitonin Ur Collection Type Urine Color Urine Clarity Urine pH Ur Specific [place] Urine Protein Urine Glucose (UA) Urine Ketones Urine Blood Urine Nitrite Urine Bilirubin Urine Urobilinogen (Auto) Ur Leukocyte Esterase Urine RBC Urine WBC Ur Squamous Epith Cells Urine Bacteria RSV Rapid Quality Measures Quality Measures none Assessment & Plan Assessment Current Active Medications: Generic Name Dose Route Start Last Admin Trade Name Freq PRN Reason Stop Dose Admin Acetaminophen 650 mg 07/04/24 16:15 Acetaminophen 325 Mg Tablet PO 08/03/24 16:14 Q6H PRN Fever >99.5 Acetaminophen 1,000 mg 07/05/24 08:39 Acetaminophen 500 Mg Tablet PO 08/03/24 16:14 Q6H PRN PAIN SCALE 1-3 (mild Albuterol 2.5 mg 07/04/24 16:28 Albuterol Rt 2.5 Mg/0.5 Ml Nebu INH 08/03/24 18:59 Q6HRRT PRN shortness of breath Fluconazole 400 mg 07/04/24 16:30 07/05/24 08:31 Fluconazole 100 Mg Tablet PO 07/11/24 16:29 400 mg QDAY CYNTHIA Administration Doxycycline Hyclate 100 mg/ 100 mls @ 100 mls/hr 07/04/24 21:00 07/05/24 08:32 Sodium Chloride IV 07/11/24 20:59 100 mls/hr BID CYNTHIA Administration Ceftriaxone Sodium/Dextrose 1 gm in 50 mls @ 100 mls/hr 07/04/24 16:27 07/05/24 08:32 Rocephin/D5w 1gm Iv Premix IV 07/11/24 16:26 100 mls/hr QDAY CYNTHIA Administration Sodium Chloride 1,000 mls @ 75 mls/hr 07/05/24 11:25 07/05/24 11:46 Ns IV 08/04/24 11:24 75 mls/hr .[id number] CYNTHIA Administration Morphine Sulfate 2 mg 07/04/24 16:15 07/05/24 11:51 Morphine Sulf Inj 10 Mg/Ml Vial IVP 07/09/24 16:14 2 mg Q2H PRN Administration PAIN SCALE 7-10 (Severe Ondansetron HCl 4 mg 07/04/24 16:15 Ondansetron Inj 2 Mg/Ml Inj 2 Ml IVP 08/03/24 16:14 Q6H PRN NAUSEA OR VOMITING Protocol Sodium Chloride 3 ml 07/04/24 16:15 Sodium Chloride Rt [place] 0.9% 3 Ml Nebu INH 08/03/24 16:14 PRN PRN SOLN Plan 43-year-old male with past medical history of hypertension, recent diagnosis of valley fever and recent discharge on 06/15/2024 presented to the ED due to fevers chills and shortness of breath. Patient will be admitted for right pleural effusion secondary to coccidiomycosis versus superimposed bacterial pneumonia. #Right-sided pleural effusion s/p Thoracentesis #Cocci pneumonia #Pleuritis #? Superimposed bacterial pneumonia On arrival patient was spiking fevers, tachycardic, tachypneic, saturating 94% on room air, leukocytosis however no evidence of endorgan damage CXR: Large right sided pleural effusion previous admission had US to evaluate pleural effusion however was not tapped due to insufficient fluid had 3.3L removal of fluid ? Fluconazole 400 mg daily (07/04- ? On ceftriaxone and doxycycline (07/04?) ? on IVFs ? Follow-up cytology and fluid analysis studies ? Follow-up cultures, RSV, legionella ? Follow UA #Hypertension At home takes losartan 100 mg daily ? Will resume when appropriate Health Maintenance: Disposition: Med telemetry Fluids: None Feeding: cardiac Thrombo prophylaxis: SCDs Gastric Ulcer prophylaxis: Not indicated CODE STATUS: Full code Case discussed with my attending Dr. Judy Mendosa MD PGY-1 Attending Provider Attestation/Addendum I, Gabriella Kim DO, attest that I was physically present for the mensah portions of the service and evaluated the patient with the resident and I reviewed and discussed the case with the resident and agree with the resident's findings and plans of care as documented above Patient seen and evaluated this a.m. He continues to have some shortness of breath. Patient was febrile at 2 PM yesterday. Will continue with IV antibiotics and antifungals due to concern for superimposed bacterial pneumonia in addition to his valley fever. Scheduled for thoracentesis this afternoon. Will follow-up with fluid studies and cultures. He continues have diminished breath sounds in the right lower lung castillo. Patient otherwise has no acute complaints. All questions and concerns were addressed at bedside to patient's satisfaction.
--- NOTE | 2024-07-05 14:56 | PC.SS ---
Patient is alert/oriented. Admitted for fever chills. Patient is independent with ADL's. He is employed. Patient was recently here and discharged earlier in the month home. Alt medical decision maker is his , Ainsley. Patient to have a thoracentesis today. He is currently on i.v. antibiotics. Discharge plan is to return home. PCP: Dr. Valdes. Alt medical decision maker is , Ainsley. Family to provide transportation.
[2024-07-05 17:29] LABS: Pleural Fluid WBC 965 /cmm
[2024-07-05 17:35] LABS: Amylase,Pleural Fluid 32 IU/L; Glucose,Pleural Fluid 100 mg/dL; LDH,Pleural Fluid 102 IU/L
[2024-07-05 17:39] LABS: Pleural Fluid Appearance Hazy; Pleural Fluid Color Yellow; Pleural Fluid Mononuclear 79 %; Pleural Fluid Polynuclear 21 %; Pleural Fluid RBC 1000 /cmm
[2024-07-05] MEDS: ACETAMINOPHEN 500 MG TABLET 1000 MG PO (23:02)
[2024-07-06] VITALS (12 sets, daily range): BP systolic 119–138; BP diastolic 83–93; PULSE 86–125; RESP 17–93; TEMP 36.9–38.6; O2SAT 92–95
[2024-07-06] MEDS: SODIUM CHLORIDE 0.9% 1000 ML 1,000 ML 75 ML IV (01:09)
[2024-07-06 06:16] LABS: Basophils # (Auto) 0.1 Thou/mm3 (0.0-0.2); Basophils % (Auto) 1 % (0-2.5); Eosinophils # (Auto) 0.5 Thou/mm3 (0.0-0.5); Eosinophils % (Auto) 4 % (0-10); Hemoglobin 12.4 g/dL (13.5-16.0); Immature Granulocytes % (Auto) 0 % (0-0); Immature Granulocytes Auto 0.04 Thou/mm3 (0.00-0.00); Lymphocytes # (Auto) 1.4 Thou/mm3 (1.0-4.8); Lymphocytes % (Auto) 12 % (10-50); Mean Corpuscular HGB Conc 33.5 g/dl (31.0-37.0); Mean Corpuscular Hemoglobin 29.5 pg (25.0-35.0); Mean Corpuscular Volume 88 fL (80-100); Monocytes # (Auto) 1.6 Thou/mm3 (0.0-0.8); Monocytes % (Auto) 14 % (0-12); Neutrophils # (Auto) 7.8 Thou/mm3 (1.8-7.7); Neutrophils % (Auto) 69 % (37-80); Nucleated Red Blood Cell % 0 /100 WBC (0); Platelet Count 309 Thou/mm3 (140-440); RDW Standard Deviation 38.9 fL (35.1-43.9); White Blood Count 11.3 Thou/mm3 (3.8-10.6)
[2024-07-06 06:47] LABS: Alanine Aminotransferase 30 U/L (10-49); Albumin, Serum 3.2 gm/dL (3.5-5.0); Alkaline Phosphatase 66 U/L (46-116); Anion Gap 8 (7-16); Aspartate Amino Transferase 20 U/L (0-34); BUN/Creatinine Ratio 11 Ratio (12-20); Bilirubin,Total 0.4 mg/dL (0.3-1.2); Blood Urea Nitrogen 8 mg/dL (9-23); Calcium 8.1 mg/dL (8.3-10.6); Calcium (Corrected) 8.7 mg/dL (8.5-10.1); Carbon Dioxide 26.9 mMol/L (20.0-31.0); Chloride 103 mMol/L (98-107); Creatinine (Component) 0.7 mg/dL (0.6-1.3); Estimated Creatinine Clearance 139.8 mL/min (>60); Globulin 3.3 gm/dL (2.3-3.5); Glucose 101 mg/dL (74-106); Magnesium 1.6 mg/dL (1.6-2.6); Osmolality,Calculated 273 (275-295); Phosphorous 3.7 mg/dL (2.4-5.1); Potassium 4.4 mMol/L (3.4-5.1); Sodium 138 mMol/L (136-145); Total Protein 6.5 gm/dL (5.7-8.2); eGFR > 60 See Note
[2024-07-06] MEDS: ACETAMINOPHEN 500 MG TABLET 1000 MG PO ×2 (07:48→20:09)
[2024-07-06] MEDS: cefTRIAXone/D5w 1gm IV premix 1 GM/50 ML BAG IV (08:00)
[2024-07-06] MEDS: FLUCONAZOLE 100 MG TABLET 400 MG PO (08:00)
[2024-07-06] MEDS: DOXYCYCLINE INJ 100 MG in SODIUM CHLORIDE 0.9% (POP) 100 ML IV ×2 (08:01→20:10)
[2024-07-06] MEDS: LIDOCAINE 5% 1 PATCH TOP (09:26)
--- NOTE | 2024-07-06 09:56 | XR_ITS ---
Examination: CT chest, without intravenous contrast. Sagittal and coronal 2-D reconstructions. Exam date and time: July 06, 2024 1321 hrs. Indications: Shortness of breath today CTDI:vol (mGy) 14.6 DLP: (mGycm) 474 Technique: Multiple 3.0 mm axial sections of the chest to been obtained. Bone and lung density settings are obtained. Sagittal and coronal 2-D reconstructions have been obtained. Low dose protocols were performed. One or more of the following dose reduction techniques were used; automated exposure control, adjustment of the mA and/or KV according to patient size, use of iterative reconstruction technique. Findings: No thoracic aortic aneurysm dilatation Pulmonary artery segments are not enlarged Severe diffuse right lung pneumonia Moderate right pleural effusion No pulmonary edema Liver is irregular in contour No gallstones Spleen is not enlarged No pancreatic or adrenal mass No hydronephrosis 15 mm focal sclerosis in the T6 vertebral body Impression: Extensive right lung pneumonia Large right pleural effusion Primary hepatocellular disease
[2024-07-06] MEDS: PIPER/TAZO 3.375 GM PREMIX 3.375 GM/50 ML BAG IV ×3 (10:19→22:19)
--- NOTE | 2024-07-06 11:36 | ESPR_ITS ---
Documentation for date of: 07/06/24 Subjective Subjective Interval history: Patient seen today at the bedside found awake, alert, orientedx3. No overnight events reported. Vitals and labs reviewed. Currently on 3 L nasal cannula. Fluid analysis was 2 point is an exudative effusion. Patient is still spiking fevers overnight antibiotic regimen adjusted to Zosyn and Doxy. Exam Vital Signs Temp Pulse Resp BP Pulse Ox O2 Del Method O2 Flow Rate 100.4 F 104 H 20 128/85 H 94 L Nasal Cannula 2 07/06/24 08:00 07/06/24 09:32 07/06/24 09:32 07/06/24 08:00 07/06/24 09:32 07/06/24 08:00 07/06/24 09:32 Narrative Exam Physical Exam GENERAL: NAD, AAOx3, diaphoretic HEENT: Dry mucosa. Eyes open, symmetrical, & clear CARDIO: Heart RRR, no obvious murmurs PULM: +coughing/dyspnea decreased breath sounds on the right, left side clear to auscultation GI: Abdomen soft, nondistended, no pain on palpation. BS+ SKIN/MSK/EXT: No wounds/rashes/edema/amputations, no pain on palpation. Pedal pulses present B/L NEURO: AAOx3, no focal neuro deficits, able to move all 4 extremities Objective Labs 07/07/24 04:48 07/07/24 04:48 Labs: Laboratory Results - last 24 hr 07/05/24 07/06/24 10:53 05:07 WBC 11.3 H RBC 4.20 L Hgb 12.4 L Hct 37.0 L MCV 88 MCH 29.5 MCHC 33.5 RDW Std Deviation 38.9 Plt Count 309 Neut % (Auto) 69 Lymph % (Auto) 12 [place] % (Auto) 14 H Eos % (Auto) 4 Baso % (Auto) 1 Neut # (Auto) 7.8 H Lymph # (Auto) 1.4 [place] # (Auto) 1.6 H Eos # (Auto) 0.5 Baso # (Auto) 0.1 Immature Gran # (Auto) 0.04 H Absolute Nucleated RBC 0.00 Immature Gran % 0 Nucleated RBC % 0 Sodium 138 Potassium 4.4 Chloride 103 Carbon Dioxide 26.9 Anion Gap 8 BUN 8 L Creatinine 0.7 Estim Creat Clear Calc 139.8 eGFR > 60 BUN/Creatinine Ratio 11 L Glucose 101 Calculated Osmolality 273 L Calcium 8.1 L Corrected Calcium 8.7 Phosphorus 3.7 Magnesium 1.6 Total Bilirubin 0.4 AST 20 ALT 30 Alkaline Phosphatase 66 Total Protein 6.5 Albumin 3.2 L Globulin 3.3 Albumin/Globulin Ratio 1.0 L Pleural Color Yellow Pleural Appearance Hazy Pleural WBC 965 Pleural RBC 1000 Pleural Polynuclear WBC 21 Pleural Mononuclear WBC 79 Pleural Total Protein 6.0 Pleural LDH 102 Pleural Glucose 100 Pleural Amylase 32 Quality Measures Quality Measures none Assessment & Plan Assessment Current Active Medications: Generic Name Dose Route Start Last Admin Trade Name Freq PRN Reason Stop Dose Admin Acetaminophen 650 mg 07/04/24 16:15 Acetaminophen 325 Mg Tablet PO 08/03/24 16:14 Q6H PRN Fever >99.5 Acetaminophen 1,000 mg 07/05/24 08:39 07/06/24 07:48 Acetaminophen 500 Mg Tablet PO 08/03/24 16:14 1,000 mg Q6H PRN Administration PAIN SCALE 1-3 (mild Albuterol 2.5 mg 07/04/24 16:28 Albuterol Rt 2.5 Mg/0.5 Ml Nebu INH 08/03/24 18:59 Q6HRRT PRN shortness of breath Fluconazole 400 mg 07/04/24 16:30 07/06/24 08:00 Fluconazole 100 Mg Tablet PO 07/11/24 16:29 400 mg QDAY CYNTHIA Administration Doxycycline Hyclate 100 mg/ 100 mls @ 100 mls/hr 07/04/24 21:00 07/06/24 08:01 Sodium Chloride IV 07/11/24 20:59 100 mls/hr BID CYNTHIA Administration Piperacillin/Tazobactam/Dextrose 3.375 gm in 50 mls @ 100 mls/hr 07/06/24 10:00 07/06/24 10:19 Zosyn IV 07/13/24 09:59 100 mls/hr Q8HR CYNTHIA Administration Lidocaine 1 patch 07/06/24 09:06 07/06/24 09:26 Lidocaine 5% 1 Patch TOP 08/05/24 09:05 1 patch UD PRN Administration PAIN Protocol Morphine Sulfate 2 mg 07/04/24 16:15 07/05/24 21:09 Morphine Sulf Inj 10 Mg/Ml Vial IVP 07/09/24 16:14 2 mg Q2H PRN Administration PAIN SCALE 7-10 (Severe Ondansetron HCl 4 mg 07/04/24 16:15 Ondansetron Inj 2 Mg/Ml Inj 2 Ml IVP 08/03/24 16:14 Q6H PRN NAUSEA OR VOMITING Protocol Sodium Chloride 3 ml 07/04/24 16:15 Sodium Chloride Rt [place] 0.9% 3 Ml Nebu INH 08/03/24 16:14 PRN PRN SOLN Plan 43-year-old male with past medical history of hypertension, recent diagnosis of valley fever and recent discharge on 06/15/2024 presented to the ED due to fevers chills and shortness of breath. Patient will be admitted for right pleural effusion secondary to coccidiomycosis versus superimposed bacterial pneumonia. #Right-sided Exudative pleural effusion s/p Thoracentesis #Cocci pneumonia #Pleuritis #? Superimposed bacterial pneumonia On arrival patient was spiking fevers, tachycardic, tachypneic, saturating 94% on room air, leukocytosis however no evidence of endorgan damage CXR: Large right sided pleural effusion previous admission had US to evaluate pleural effusion however was not tapped due to insufficient fluid had 3.3L removal of fluid per lights criteria likely exudative effusion ? Fluconazole 400 mg daily (07/04- ? On doxycycline (07/04?) ? zosyn () #Hypertension At home takes losartan 100 mg daily ? started losartan 50mg daily will uptitrate as necessary Health Maintenance: Disposition: Med telemetry, broadened ABx therapy Fluids: None Feeding: cardiac Thrombo prophylaxis: SCDs Gastric Ulcer prophylaxis: Not indicated CODE STATUS: Full code Case discussed with my attending Dr. Judy Mendosa MD PGY-1 Attending Provider Attestation/Addendum IGabriella, DO, attest that I was physically present for the mensah portions of the service and evaluated the patient with the resident and I reviewed and discussed the case with the resident and agree with the resident's findings and plans of care as documented above Patient seen and evaluated. Feels some improvement with his breathing. He continues have some diminished breath sounds in the right lower lung base. Patient continue to have fevers overnight despite removal of 3300 cc of oral fluid. Pleural studies appear to be exudative. Will obtain a CT chest to assess for any loculations and remaining pleural effusion as it is noted that the right hemidiaphragm appears to be much higher than expected on the repeat chest x-ray following thoracentesis. Will follow-up with pleural fluid cultures and cytology otherwise. Will broaden antibiotic coverage to Zosyn and Doxy. He is otherwise MRSA negative. Will continue with fluconazole.
[2024-07-06] MEDS: ACETAMINOPHEN 325 MG TABLET 650 MG PO (14:39)
[2024-07-06] MEDS: LOSARTAN POTASSIUM 25 MG TABLET 50 MG PO (16:38)
[2024-07-06] MEDS: MORPHINE SULF INJ 10 MG/ML VIAL 2 MG IVP (22:19)
[2024-07-07] VITALS (12 sets, daily range): BP systolic 115–132; BP diastolic 75–93; PULSE 82–113; RESP 17–22; TEMP 36.2–37.6; O2SAT 93–96
[2024-07-07] MEDS: ACETAMINOPHEN 500 MG TABLET 1000 MG PO ×3 (04:20→19:40)
[2024-07-07] MEDS: PIPER/TAZO 3.375 GM PREMIX 3.375 GM/50 ML BAG IV ×3 (05:46→21:06)
[2024-07-07 05:52] LABS: Basophils # (Auto) 0.1 Thou/mm3 (0.0-0.2); Basophils % (Auto) 1 % (0-2.5); Eosinophils # (Auto) 0.5 Thou/mm3 (0.0-0.5); Eosinophils % (Auto) 4 % (0-10); Hematocrit 35.4 % (41.0-53.0); Hemoglobin 12.1 g/dL (13.5-16.0); Immature Granulocytes % (Auto) 1 % (0-0); Immature Granulocytes Auto 0.06 Thou/mm3 (0.00-0.00); Lymphocytes # (Auto) 1.3 Thou/mm3 (1.0-4.8); Lymphocytes % (Auto) 12 % (10-50); Mean Corpuscular HGB Conc 34.2 g/dl (31.0-37.0); Mean Corpuscular Hemoglobin 29.4 pg (25.0-35.0); Mean Corpuscular Volume 86 fL (80-100); Monocytes # (Auto) 1.4 Thou/mm3 (0.0-0.8); Monocytes % (Auto) 12 % (0-12); Neutrophils % (Auto) 71 % (37-80); Nucleated Red Blood Cell % 0 /100 WBC (0); Platelet Count 333 Thou/mm3 (140-440); RDW Standard Deviation 38.7 fL (35.1-43.9); Red Blood Count 4.11 Miln/mm3 (4.50-5.90); White Blood Count 11.2 Thou/mm3 (3.8-10.6)
[2024-07-07 06:21] LABS: Alanine Aminotransferase 52 U/L (10-49); Albumin, Serum 3.4 gm/dL (3.5-5.0); Albumin/Globulin Ratio 0.9 (1.2-2.2); Alkaline Phosphatase 70 U/L (46-116); Anion Gap 9 (7-16); Aspartate Amino Transferase 29 U/L (0-34); BUN/Creatinine Ratio 6 Ratio (12-20); Bilirubin,Total 0.3 mg/dL (0.3-1.2); Blood Urea Nitrogen 5 mg/dL (9-23); Calcium 8.4 mg/dL (8.3-10.6); Calcium (Corrected) 8.9 mg/dL (8.5-10.1); Carbon Dioxide 27.8 mMol/L (20.0-31.0); Chloride 100 mMol/L (98-107); Creatinine (Component) 0.8 mg/dL (0.6-1.3); Estimated Creatinine Clearance 122.3 mL/min (>60); Globulin 3.6 gm/dL (2.3-3.5); Glucose 102 mg/dL (74-106); Magnesium 1.6 mg/dL (1.6-2.6); Osmolality,Calculated 271 (275-295); Phosphorous 3.6 mg/dL (2.4-5.1); Potassium 4.1 mMol/L (3.4-5.1); Sodium 137 mMol/L (136-145); eGFR > 60 See Note
[2024-07-07] MEDS: Magnesium Sulfate 2 GM Ivpb 2 GM/50 ML BAG IV ×2 (07:51→19:39)
[2024-07-07] MEDS: carVEDILOL 3.125 MG TABLET PO ×2 (07:51→17:39)
--- NOTE | 2024-07-07 07:58 | XR_ITS ---
Examination: Abdomen sonogram, Limited Date and time of exam: July 07, 2024 1430 hours INDICATIONS: Right upper abdominal pain months Technique: Real-time al scale transabdominal sonographic images of the upper abdomen obtained. Findings: 7 mm gallbladder polyp No gallstones Normal gallbladder wall. Normal common bile duct 0.35 cm Liver 15 cm with free fluid in the upper abdomen no focal liver lesions Normal hepatopedal portal venous flow Patent IVC IMPRESSION: Small gallbladder polyp No focal liver lesions. Mild ascites
--- NOTE | 2024-07-07 07:59 | PC.NURSE ---
Dr. Palacios made aware pt reports pain upper abdomen below the right side ribcage. Doctor will come up and assess pt.
[2024-07-07] MEDS: DOXYCYCLINE 100 MG TABLET PO ×2 (08:04→21:06)
[2024-07-07] MEDS: FLUCONAZOLE 100 MG TABLET 400 MG PO (08:04)
[2024-07-07 08:10] LABS: Iron 11 mcg/dL (65-175); Percent Iron Saturation 7 % (20-55); Total Iron Binding Capacity 156 mcg/dL (250-425); Unsaturated Iron Binding 145 (225-295)
[2024-07-07] MEDS: PANTOPRAZOLE INJ 40 MG VIAL IVP (09:28)
[2024-07-07] MEDS: ALBUMIN HUMAN 25% IVPB 25 GM/100 ML BTL IV (09:28)
[2024-07-07] MEDS: LACTOBACILLUS RHAMNOSUS 1 CAP PO ×2 (09:28→21:06)
[2024-07-07] MEDS: LIDOCAINE HCL 1% 20 ML VIAL 4 ML INFL (12:00)
--- NOTE | 2024-07-07 12:27 | XR_ITS ---
Examination: AP chest single view Technique: AP portable semiupright chest single view Date and time: July 07, 2024 1240 hrs. Comparison July 05, 2024 Indications: Prominent right pleural fluid post chest tube placement Findings: Right chest tube projects medial right hemithorax Extensive pleural and parenchymal disease remains Mild prominence left ventricle Impression: Right chest tube satisfactory position Extensive pleural parenchymal disease right hemithorax
--- NOTE | 2024-07-07 12:56 | ESPR_ITS ---
Documentation for date of: 07/07/24 Subjective Subjective Interval history: Patient was seen and examined at bedside this AM. No acute events overnight. Patient tolerating diet, adequate urine output and mentation is at baseline. ICU consulted for Thoracentesis, appreciate Dr Ferrera's input. Currently on 3 L nasal cannula. Will get US thora today, patient opted to get chest tube/pigtail drain due to recurrent accumulation. Risks explained, comprehends fully. Family present at bedside as well. Previous pleural fluid analysis confirmed exudative effusion. Patient is still spiking fevers overnight, last recorded at 8PM. Will continue antibiotic regimen adjusted to Zosyn and PO Doxy. Exam Vital Signs Temp Pulse Resp BP Pulse Ox O2 Del Method O2 Flow Rate 97.2 F 105 H 20 122/80 95 Nasal Cannula 1.5 07/07/24 08:00 07/07/24 08:08 07/07/24 08:08 07/07/24 08:00 07/07/24 08:08 07/07/24 08:00 07/07/24 08:08 Narrative Exam Physical Exam GENERAL: NAD, AAOx3, diaphoretic HEENT: Dry mucosa. Eyes open, symmetrical, & clear CARDIO: Heart RRR, no obvious murmurs PULM: +coughing/dyspnea decreased breath sounds on the right, left side clear to auscultation GI: Abdomen soft, nondistended, no pain on palpation. BS+ SKIN/MSK/EXT: No wounds/rashes/edema/amputations, no pain on palpation. Pedal pulses present B/L NEURO: AAOx3, no focal neuro deficits, able to move all 4 extremities Objective Labs 07/07/24 04:48 07/07/24 04:48 Labs: Laboratory Results - last 24 hr 07/07/24 04:48 WBC 11.2 H RBC 4.11 L Hgb 12.1 L Hct 35.4 L MCV 86 MCH 29.4 MCHC 34.2 RDW Std Deviation 38.7 Plt Count 333 Neut % (Auto) 71 Lymph % (Auto) 12 [place] % (Auto) 12 Eos % (Auto) 4 Baso % (Auto) 1 Neut # (Auto) 8.0 H Lymph # (Auto) 1.3 [place] # (Auto) 1.4 H Eos # (Auto) 0.5 Baso # (Auto) 0.1 Immature Gran # (Auto) 0.06 H Absolute Nucleated RBC 0.00 Immature Gran % 1 H Nucleated RBC % 0 Sodium 137 Potassium 4.1 Chloride 100 Carbon Dioxide 27.8 Anion Gap 9 BUN 5 L Creatinine 0.8 Estim Creat Clear Calc 122.3 eGFR > 60 BUN/Creatinine Ratio 6 L Glucose 102 Calculated Osmolality 271 L Calcium 8.4 Corrected Calcium 8.9 Phosphorus 3.6 Magnesium 1.6 Iron 11 L TIBC 156 L Iron Saturation 7 L Unsat Iron Binding 145 L Total Bilirubin 0.3 AST 29 ALT 52 H Alkaline Phosphatase 70 Total Protein 7.0 Albumin 3.4 L Globulin 3.6 H Albumin/Globulin Ratio 0.9 L Quality Measures Quality Measures none Assessment & Plan Assessment Current Active Medications: Generic Name Dose Route Start Last Admin Trade Name Freq PRN Reason Stop Dose Admin Acetaminophen 1,000 mg 07/07/24 07:30 07/07/24 08:04 Acetaminophen 500 Mg Tablet PO 08/03/24 16:14 1,000 mg Q6H PRN Administration fever >99 Carvedilol 3.125 mg 07/07/24 08:00 07/07/24 07:51 Carvedilol 3.125 Mg Tablet PO 08/06/24 07:59 3.125 mg BIDWM CYNTHIA Administration Doxycycline Hyclate 100 mg 07/07/24 09:00 07/07/24 08:04 Doxycycline 100 Mg Tablet PO 07/11/24 08:59 100 mg BID CYNTHIA Administration Fluconazole 400 mg 07/04/24 16:30 07/07/24 08:04 Fluconazole 100 Mg Tablet PO 07/11/24 16:29 400 mg QDAY CYNTHIA Administration Hyoscyamine 0.25 mg 07/07/24 08:06 Hyoscyamine Sulf 0.125 Mg Tab.Subl PO 08/06/24 08:05 Q4HR PRN spasmodic abdominal pain Piperacillin/Tazobactam/Dextrose 3.375 gm in 50 mls @ 100 mls/hr 07/06/24 10:00 07/07/24 05:46 Zosyn IV 07/13/24 09:59 100 mls/hr Q8HR CYNTHIA Administration Lactobacillus Rhamnosus 1 cap 07/07/24 09:00 07/07/24 09:28 Lactobacillus Rhamnosus 1 Cap PO 08/06/24 08:59 1 cap BID CYNTHIA Administration Lidocaine 1 patch 07/06/24 09:06 07/06/24 09:26 Lidocaine 5% 1 Patch TOP 08/05/24 09:05 1 patch UD PRN Administration PAIN Protocol Ondansetron HCl 4 mg 07/04/24 16:15 Ondansetron Inj 2 Mg/Ml Inj 2 Ml IVP 08/03/24 16:14 Q6H PRN NAUSEA OR VOMITING Protocol Pantoprazole Sodium 40 mg 07/07/24 09:00 07/07/24 09:28 Pantoprazole Inj 40 Mg Vial IVP 08/06/24 08:59 40 mg QDAY CYNTHIA Administration Sodium Chloride 3 ml 07/04/24 16:15 Sodium Chloride Rt [place] 0.9% 3 Ml Nebu INH 08/03/24 16:14 PRN PRN SOLN Plan Mr Beyer is a 43-year-old male with past medical history of hypertension, recent diagnosis of valley fever and recent discharge on 06/15/2024 presented to the ED due to fevers chills and shortness of breath. Patient will be admitted for right pleural effusion secondary to coccidiomycosis versus superimposed bacterial pneumonia. Right-sided Exudative pleural effusion s/p Thoracentesis Cocci pneumonia Pleuritis Superimposed bacterial pneumonia On arrival patient was spiking fevers, tachycardic, tachypneic, saturating 94% on room air, leukocytosis however no evidence of endorgan damage CXR: Large right sided pleural effusion Previous admission had US to evaluate pleural effusion however was not tapped due to insufficient fluid had 3.3L removal of fluid per lights criteria likely exudative effusions 07/07 : s/p RT thoracic pigtail drain Plan: - Fluconazole PO 400 mg daily (07/04- - PO Doxycycline (07/04? - IV Zosyn (07/06/- - Will follow ICU hotbed transfer operator instructions. Goal: clamp chest tube if more than 2.5 L in 24hrs - Pain control: Tylenol (1-3), Morphine (4-10) and Dilaudid 1mg for breakthrough pain Primary Hypertension Sinus Tachycardia At home takes losartan 100 mg daily BP 12-130s systolic on Losartan 50mg inpatient HR 110-120s , likely pain and hypoxia induced Plan: - Discontinued losartan 50mg daily - Started on Carvedilol 3.125mg BIDWM -> SBP Health Maintenance: Disposition: Med telemetry, s/p US + RT pigtail chest drain Fluids: None Feeding: cardiac Thrombo prophylaxis: SCDs Gastric Ulcer prophylaxis: Not indicated CODE STATUS: Full code Plan of care discussed with attending Arvind Valentin M.D. PGY2 Disclaimer: Minor errors in liquor department manager may be present as this note was dictated using voice recognition software. Attending Provider Attestation/Addendum Gabriella oGrdillo DO, attest that I was physically present for the mensah portions of the service and evaluated the patient with the resident and I reviewed and discussed the case with the resident and agree with the resident's findings and plans of care as documented above Patient seen and eval this a.m. Patient continues to have fevers overnight. Had hotbed transfer operator review CT chest due to large pleural effusion. Patient was given the option of undergoing thoracentesis versus chest tube placement to allow for drainage of effusion. Will limit drainage to 2500 mL daily. Patient opted for chest tube placement. Will follow-up with cultures and cytology. Will repeat cocci IgM and IgG as titers from previous studies were negative. Patient remains on antibiotics and fluconazole. Will continue to monitor her CT output that appears to be clear yellow fluid.
--- NOTE | 2024-07-07 13:26 | ESOP_ITS ---
Procedures Procedure Date / Time 07/07/24 1326 Percutaneous Chest Tube Indication(s): symptomatic Pleural Effusion Informed consent obtained: from patient Time out done and verified the following: correct patient, side and site, procedure, patient position and implants and/or equipment Site cleansed with: Chlorhexidine Site: right and mid Anesthetic used: 1% Lidocaine Catheter sized used: 10 F Seldinger technique used: yes Chest tube connected to evacuation container: yes CXR ordered post procedure: yes EBL(ml): 5 Complications/Comments: Description: An US was used to locate a pocket of fluid on the R post lung field. The area was cleaned with sterile technique using chlorhexadine prep. A sterile field was placed and the US was used to confirm the site. 1% lidocaine was used for local anesthetic. ~8cc was utilized to obtaine adequate local anesthetic effect. The needle was then introduced and advanced until fluid was aspirated. The guidewire was then placed and the needle removed. A knick in the skin was made with a small scalpel. A 10F dilator was then passed without complication. The next dilator in the kit was a 16F and this one was unable to pass despite adequate f orce being utilized. At this point an attempt was made to pass the 14F chest tube however it would not advance given insufficient dilation. A back up 9F chest tube was available and this was placed. Once chest tube was sutured in place it was connected to tubing and clear straw like fluid was drained. Drainage was very slow and initially only ~200cc was obtained. The tubing was connected to a pleuravac with instruction to clamp chest tube if more than 2.5lts /24hrs is reached. pt tolerated procedure well. fu CXR shows chest tube in position with no pneumothorax noted.
--- NOTE | 2024-07-07 13:38 | PC.NURSE ---
DR. STARKS MADE AWARE OF PTS BACK SPASMS.
[2024-07-07] MEDS: MORPHINE SULF INJ 10 MG/ML VIAL 2 MG IVP (13:56)
[2024-07-07 14:27] LABS: Pleural Fluid WBC 800 /cmm
[2024-07-07 14:31] LABS: Pleural Fluid Appearance Hazy; Pleural Fluid Color Yellow; Pleural Fluid Mononuclear 91 %; Pleural Fluid Polynuclear 9 %; Pleural Fluid RBC 1000 /cmm
[2024-07-07] MEDS: HYDROmorphone INJ 2 MG/ML VIAL 1 MG IVP (14:51)
--- NOTE | 2024-07-07 14:54 | PD.RESCONSUL ---
HPI Data of Consult Requesting Physician: Gabriella Kim DO Admitting Provider: Rylan Isaacs MD Attending Provider: Gabriella Kim DO Primary Care Provider: Amaya Valdes MD Consult Narrative History of present illness: Patient is a 43-year-old male with a past medical history of hypertension and a past medical history of right-sided cocci pneumonia complicated by pleural effusion s/p thoracentesis on 06/14/2024 and started on fluconazole 400 mg daily on 06/14/2024. Patient was subsequently discharged on 06/15/2024 with instructions to continue taking fluconazole 400 mg daily for cocci valley fever. Patient returned to the emergency room and was readmitted on 07/05/2024 after concern by primary care provider for pleural effusion. Patient denied pyrexia or chills. Denied recent sick contacts. Positive for pleuritic chest pain. Patient was readmitted on 07/07/2024 with recurrent right-sided pleural effusion and cocci pneumonia with superimposed bacterial pneumonia. Primary team started patient fluconazole 400 mg p.o. daily, doxycycline and IV Zosyn. 07/07/2024: ICU consulted for right pleural effusion and chest tube placement. PMH: Hypertension Valley Fever Past Surgical History: thoracentesis 06/14/2024, repeat thoracentesis 07/07/2024 Home Medication: Losartan 100 mg PO Qday Social History: None Allergies: None Code Status: Full Code cc:: cc: Gabriella Kim DO Review of Systems Review of Systems Narrative Review of Systems: General appearance: NO weight change, NO fatigue, NO weakness, NO fever, NO chills, NO night sweats, No cough Skin: NO rash, NO itching, NO sores, NO moles HEENT: NO Trauma, NO nausea, NO vomiting, NO visual changes, NO blurry vision, NO double vision, NO tinnitus, NO vertigo, NO ear discharge, NO rhinorrhea, NO stuffiness, NO sneezing, NO allergy, NO epistaxis. NO Hoarseness, NO sore throat, NO swollen neck. Cardiac: NO Palpitations, NO dyspnea on exertion, NO orthopnea, NO paroxysmal nocturnal dyspnea, NO edema Respiratory: NO Shortness of Breath, NO Wheezing, NO Cough, NO Sputum, NO hemoptysis , YES pleuritic chest pain GI:NO appetite, NO nausea, NO vomiting, NO dysphagia, NO changes in bowel frequency, NO stool color, NO diarrhea, NO constipation, NO hemetemesis, NO hemorrhoids, NO melena, NO hematechezia, NO abdominal pain, NO jaundice Renal: NO frequency, NO hesitancy, NO urgency, NO hematuria, NO nocturia, NO incontinence MSK: NO muscle weakness, NO gout, NO arthritis, NO muscle stiffness Neuro: NO headaches, NO tremors, NO weakness, NO paralysis, NO seizures, NO loss of consciousness, NO numbness. Hem: NO anemia, NO easy bruising/bleeding, NO petechiae, NO purpura Endo: NO heat/cold intolerance, NO excessive sweating, NO polyuria, NO polydipsia, NO polyphagia, NO thyroid problems, NO diabetes Pysch: NO mood, NO anxiety, NO depression Exam Vital Signs Temp Pulse Resp BP Pulse Ox O2 Del Method O2 Flow Rate 97.3 F 93 22 H 124/76 96 Nasal Cannula 1.5 07/07/24 12:07/07/24 12:07/07/24 12:07/07/24 12:07/07/24 12:07/07/24 12:07/07/24 12:00 Narrative Exam General Appearance: Alert & Oriented X3, well-nourished male who is lying in bed in no acute distress HEENT: Skull symmetrical and atraumatic. Conjunctivae pink and moist. Pupils equal, round, reactive to light and accommodation (PERRL). External ear without lesion or discharge. Straight, nares patient, mucosa pink, no discharge. No thyroid nodule appreciated. No cervical lymphadenopathy. Cardio: Normal Rate and Rhythm with S1 and S2 heart sounds. No murmurs or extra heart sounds auscultated. No bruits on carotid auscultation. No peripheral edema or cyanosis. Lungs: Symmetric with good expansion. Chest and back non-tender. Breath sounds vesicular on left and decreased vesicular breath sounds on right pulmonary lung castillo. Abdomen: Non-tender, Non-distended, Normal Reactive Bowel Sounds Neuro: Alert, cooperative, oriented to person, place, and time. Speech clear. CN grossly intact. Upper motor strength 5/5 and Lower motor strength 5/5. Sensation intact. Results Labs 07/09/24 04:56 07/10/24 04:55 Labs: Short CBC 07/07/24 Range/Units 04:48 WBC 11.2 H (3.8-10.6) Thou/mm3 Hgb 12.1 L (13.5-16.0) g/dL Hct 35.4 L (41.0-53.0) % Plt Count 333 (140-440) Thou/mm3 BMP 07/07/24 04:48 Sodium 137 Potassium 4.1 Chloride 100 Carbon Dioxide 27.8 BUN 5 L Creatinine 0.8 Glucose 102 Calcium 8.4 Liver Function 07/07/24 Range/Units 04:48 Total Bilirubin 0.3 (0.3-1.2) mg/dL AST 29 (0-34) U/L ALT 52 H (10-49) U/L Alkaline Phosphatase 70 (46-116) U/L Albumin 3.4 L (3.5-5.0) gm/dL Quality Measures Quality Measures none Medications Home Medications and Allergies Home Medications ?Medication ?Instructions ?Recorded ?Confirmed ?Type losartan 100 mg tablet 100 mg PO QDAY 06/14/24 07/05/24 History benzonatate 100 mg capsule 100 mg PO TID PRN cough 07/05/24 07/05/24 History Allergies Allergy/AdvReac Type Severity Reaction Status Date / Time No Known Allergies Allergy Verified 06/14/24 00:17 Visit Medications Acetaminophen (Acetaminophen 500 Mg Tablet) 1,000 mg PO Q6H PRN PRN Reason: fever >99 Stop: 08/03/24 16:14 Last Admin: 07/07/24 08:04 Dose: 1,000 mg Carvedilol (Carvedilol 3.125 Mg Tablet) 3.125 mg PO BIDWM [facility] Stop: 08/06/24 07:59 Last Admin: 07/07/24 07:51 Dose: 3.125 mg Doxycycline Hyclate (Doxycycline 100 Mg Tablet) 100 mg PO BID [facility] Stop: 07/11/24 08:59 Last Admin: 07/07/24 08:04 Dose: 100 mg Fluconazole (Fluconazole 100 Mg Tablet) 400 mg PO QDAY [facility] Stop: 07/11/24 16:29 Last Admin: 07/07/24 08:04 Dose: 400 mg Hydromorphone HCl (Hydromorphone Inj 2 Mg/Ml Vial) 1 mg IVP Q6H PRN PRN Reason: BREAKTHROUGH PAIN Stop: 07/12/24 14:34 Hyoscyamine (Hyoscyamine Sulf 0.125 Mg Tab.Subl) 0.25 mg PO Q4HR PRN PRN Reason: spasmodic abdominal pain Stop: 08/06/24 08:05 Piperacillin/Tazobactam/Dextrose (Zosyn) 3.375 gm in 50 mls @ 100 mls/hr IV Q8HR CYNTHIA Stop: 07/13/24 09:59 Last Admin: 07/07/24 13:29 Dose: 100 mls/hr Lactobacillus Rhamnosus (Lactobacillus Rhamnosus 1 Cap) 1 cap PO BID CYNTHIA Stop: 08/06/24 08:59 Last Admin: 07/07/24 09:28 Dose: 1 cap Lidocaine (Lidocaine 5% 1 Patch) 1 patch TOP UD PRN; Protocol PRN Reason: PAIN Stop: 08/05/24 09:05 Last Admin: 07/06/24 09:26 Dose: 1 patch Morphine Sulfate (Morphine Sulf Inj 10 Mg/Ml Vial) 2 mg IVP Q4HR PRN PRN Reason: Pain 4-10 Stop: 07/12/24 13:36 Last Admin: 07/07/24 13:56 Dose: 2 mg Ondansetron HCl (Ondansetron Inj 2 Mg/Ml Inj 2 Ml) 4 mg IVP Q6H PRN; Protocol PRN Reason: NAUSEA OR VOMITING Stop: 08/03/24 16:14 Pantoprazole Sodium (Pantoprazole Inj 40 Mg Vial) 40 mg IVP QDAY [facility] Stop: 08/06/24 08:59 Last Admin: 07/07/24 09:28 Dose: 40 mg Sodium Chloride (Sodium Chloride Rt Willow 0.9% 3 Ml Nebu) 3 ml INH PRN PRN PRN Reason: SOLN Stop: 08/03/24 16:14 Discontinued Medications Acetaminophen (Acetaminophen 500 Mg Tablet) 1,000 mg PO X1 ONE Stop: 07/04/24 14:43 Last Admin: 07/04/24 15:34 Dose: 1,000 mg Acetaminophen (Acetaminophen 325 Mg Tablet) 650 mg PO Q6H PRN PRN Reason: Fever >99.5 Stop: 08/03/24 16:14 Last Admin: 07/06/24 14:39 Dose: 650 mg Acetaminophen (Acetaminophen 325 Mg Tablet) 1,000 mg PO Q6H PRN PRN Reason: PAIN SCALE 1-3 (mild Stop: 08/03/24 16:14 Acetaminophen (Acetaminophen 500 Mg Tablet) 1,000 mg PO Q6H PRN PRN Reason: PAIN SCALE 1-3 (mild Stop: 08/03/24 16:14 Last Admin: 07/07/24 04:20 Dose: 1,000 mg Albuterol (Albuterol Rt 2.5 Mg/0.5 Ml Nebu) 2.5 mg INH X1 ONE Stop: 07/04/24 14:58 Last Admin: 07/04/24 15:30 Dose: 2.5 mg Albuterol (Albuterol Rt 2.5 Mg/0.5 Ml Nebu) 2.5 mg INH Q6HRRT PRN PRN Reason: shortness of breath Stop: 08/03/24 18:59 Carvedilol (Carvedilol 3.125 Mg Tablet) 6.25 mg PO BIDWM [facility] Stop: 08/06/24 07:59 Hydromorphone HCl (Hydromorphone Inj 2 Mg/Ml Vial) 1 mg IVP X1 ONE Stop: 07/07/24 14:36 Last Admin: 07/07/24 14:51 Dose: 1 mg Ceftriaxone Sodium/Dextrose (Rocephin/D5w 1gm Iv Premix) 1 gm in 50 mls @ 100 mls/hr IV X1 ONE Stop: 07/04/24 15:11 Last Infusion: 07/04/24 16:36 Dose: Infused Doxycycline Hyclate 100 mg/ (Sodium Chloride) 100 mls @ 100 mls/hr IV BID [facility] Stop: 07/11/24 20:59 Last Admin: 07/06/24 20:10 Dose: 100 mls/hr Ceftriaxone Sodium/Dextrose (Rocephin/D5w 1gm Iv Premix) 1 gm in 50 mls @ 100 mls/hr IV QDAY CYNTHIA Stop: 07/11/24 16:26 Last Admin: 07/06/24 08:00 Dose: 100 mls/hr Sodium Chloride (Ns) 1,000 mls @ 75 mls/hr IV .[id number] [facility] Stop: 08/04/24 11:24 Last Admin: 07/06/24 01:09 Dose: 75 mls/hr Magnesium Sulfate (Magnesium Sulfate Ivpb) 2 gm in 50 mls @ 25 mls/hr IV X1 ONE Stop: 07/07/24 09:32 Last Admin: 07/07/24 07:51 Dose: 25 mls/hr Albumin Human (Albuminar-25 Ivpb) 25 gm in 100 mls @ 100 mls/hr IV X1 ONE Stop: 07/07/24 08:40 Albumin Human (Albuminar-25 Ivpb) 25 gm in 100 mls @ 100 mls/hr IV X1 ONE Stop: 07/07/24 10:29 Last Admin: 07/07/24 09:28 Dose: 100 mls/hr Lidocaine HCl (Lidocaine Hcl 1% 20 Ml Vial) 10 ml INFL X1 ONE Stop: 07/07/24 11:33 Last Admin: 07/07/24 13:01 Dose: Not Given Lidocaine HCl (Lidocaine Hcl 1% 20 Ml Vial) 4 ml INFL X1 ONE Stop: 07/07/24 12:01 Last Admin: 07/07/24 12:00 Dose: 4 ml Losartan Potassium (Losartan Potassium 25 Mg Tablet) 50 mg PO QDAY CYNTHIA Stop: 08/05/24 16:29 Last Admin: 07/06/24 16:38 Dose: 50 mg Morphine Sulfate (Morphine Sulf Inj 10 Mg/Ml Vial) 2 mg IVP Q2H PRN PRN Reason: PAIN SCALE 7-10 (Severe Stop: 07/09/24 16:14 Last Admin: 07/06/24 22:19 Dose: 2 mg Sodium Chloride (Sodium Chloride Rt Willow 0.9% 3 Ml Nebu) 3 ml INH PRN PRN PRN Reason: SOLN Stop: 08/03/24 14:56 Last Admin: 07/04/24 15:30 Dose: 3 ml Sodium Chloride (Sodium Chloride Rt 10% 15 Ml Nebu) 5 ml INH X1 ONE Stop: 07/04/24 16:21 Last Admin: 07/04/24 18:10 Dose: 5 ml Assessment & Plan Plan Patient is a 43-year-old male with a past medical history of hypertension and a past medical history of right-sided cocci pneumonia complicated by pleural effusion s/p thoracentesis on 06/14/2024 who was admitted on on 07/07/2024 for recurrent right sided pleural effusion and cocci pneumonia and ICU following for chest tube management. DIRECTOR RECORDS MANAGEMENT: Stable CVS: Problem: Primary Hypertension DDx: Home medication of Losartan 100 mg Qday. Patient was started on Carvedilol 3.125 mg BIDWM. RRx: hold home medication Rxx: Monitor BP, hold medication Problem: Sinus Tachycardia DDx: Sinus Tachycardia in the setting of pleuritic chest pain and discomfort secondary to chest tube (9 Singaporean) Dx: Rx: Carvedilol 3.125 mg BIDWM Rxx: Pain management, treat underlying plerual effusion Respiratory Problem: R. Sided Pleural Effusion s/p Thoracentesis (06/14/2024) and Chest Tube s/p (07/07/2024) DDx: R. sided pleural effusion likely secondary to Cocci pneumonia (IgM), complicated by superimposed pneumonia given CT chest vs autoimmune etiology given reoccurrence of pleural effusion vs Malignancy but less likely as patient denied recent weight loss but cytology pending. MRSA Negative. Cytology ordered. Dx: Lights Criteria: Exudative Effusion (Total protein 7.1, Pleural Fluid 6/Serum LDH 157, Plerual Fluid 102). CT Chest: Extensive right lung pneumonia. Large right pleural effusion. Primary hepatocellular disease Rx: s/p Chest Tube (07/07/2024): Clamp after >2.5 L within the next 24 hours; Chest x-ray AM daily, pain management Rxx: Pending cytology GI: Stable GI prophylaxis: Pantoprazole 40 mg IV Qday Heme: Stable DVT prophylaxis: Compression Device ID: Problem: Cocci pneumonia complicated by recurrent R. Sided Pleural Effusion s/p Thoracentesis (06/14/24) Superimposed bacterial pneumonia DDx: Past medical history of cocci pneumonia complicated by recurrent right sided pleural effusion Dx:Cxr: large right sided pleural effusion, CT Chest: Extensive right lung pneumonia. Large right pleural effusion. Primary hepatocellular disease Rx: IV Zosyn (-), Doxycycline (07/04/2024), Fluconazole 400 mg Daily (07/04/2024--) Rxx: Sputum Culture pending, de-escalate antibiotics as cultures results, patient may benefit from ID consult given complicated Cocci pneumonia, consider HIV testing/Hepatitis testing Health Maintenance: Disp: Pt is currently admitted to floors for further management of Cocci pneumonia complicated by recurrent right sided exudative pleural effusion, ICU team consulted for chest tube placement FEN: Low sodium diet DVT: compression device GI: Protonix Code: Full Code - The patient's plan was discussed with attending Dr. Iban Eaton MD PGY1 Internal Medicine Attending Provider Attestation/Addendum pt seen and examined, agree with above. in brief this is a 43yo M admitted for SOB and pleurtic chest pain. He has been dx with Cocci PNA and He was found to have a large R pleural effusion, the ICU was consulted for eval and poss drain. d/w pt regarding chest tube placement vs repeat thoracentesis. discussion also held with primary team. decision was made to place chest tube and drain no more than 2lts/day. on physical exam pt is AAOx4, nl body habitus, LCTA with diminished breath sounds on R. HRRR, no increase in WOB, abd s/nt/bs+, no peripheral edema. case d/w primary team and ICU team labs, imaging , records reviewed ~60min required for eval, exam, review, intervention, discussion and formulation of POC
--- NOTE | 2024-07-07 16:46 | PC.NURSE ---
Called Dr. Ocampo for clarification on chest tube and orders, no answer, left message with extension number.
[2024-07-07] MEDS: KETOROLAC INJ 30 MG/ML VIAL IVP (18:26)
--- NOTE | 2024-07-07 18:30 | XR_ITS ---
Examination: AP chest single view TECHNIQUE: AP portable semiupright chest single view Date and time: July 07, 2024, 1837 hours Comparison July 07, 2024 INDICATIONS: Fever chills shortness of breath today. FINDINGS: Right chest tube stable position Extensive right lung pneumonia with prominent right pleural fluid Enlarged cardiac contour with moderate vascular congestion Mild osteopenia IMPRESSION: Extensive right lung pneumonia with prominent right pleural fluid Suspicious for mild associated heart failure
--- NOTE | 2024-07-07 18:33 | EKG_ITS ---
[facility] Test Date: 2024-07-07 Pat Name: BERTO PERDOMO [facility] Gender[facility] Male [employer] Operator: [id number] : [id number] Requested By: Main Mendosa Order Number: [id number] Reading MD: Main Mendosa Measurements Intervals [place] Rate: 105 P: [place]: QRS: 14 QRSD: 98 T: 30 QT: 325 QTc: 430 Interpretive Statements SUPRAVENTRICULAR TACHYCARDIA ABNORMAL RHYTHM ECG Compared to ECG 07/04/2024 15:53:25 Sinus tachycardia no longer present /store/S0/[id number].pdf
--- NOTE | 2024-07-07 18:56 | PD.RESEVENT ---
Documentation for date of: 07/07/24 Event Note Event Note: Mr Beyer is a 43 year old male admitted for recurrent pleural effusion in the setting of cocci valley fever. Patient underwent right-sided pigtail chest drain placement today 07/07/[address] Eaton PGY1 and ICU ladies underwear operator Dr. Ferrera. Initial chest x-ray showed adequate placement of the drain, with good output on the chest tube drainage system. RR called at 6:31 PM for worsening shortness of breath and chest pain. In the room, patient's oxygen saturations noted to be 96/97%. Patient however endorsed 9/10 pain on the right side in the area of the procedure and some central chest discomfort but no pain. He also endorsed severe shortness of breath, especially worsening of pain on inhalation. EKG remarkable for sinus tachycardia. Chest x-ray showed change in the position of the catheter from the initial x-ray. Patient did receive morphine postprocedure followed by Dilaudid and Toradol due to severe pain. Plan: ? Needle Punch Machine Operator Helper Dr. Ferrera updated on imaging findings, recommends to continue monitoring. Patient currently stable, vitals within normal limits. ? Dilaudid reduced from every 6 hours to every 4 hours ? Night team to be updated. Nursing staff advised to continue close monitoring ? Patient counseled to avoid excessive movement or repositioning ? ICU team to continue following, with low threshold for possible upgrade Plan of care discussed with attending Dr Kim, - Reno Palacios M.D. PGY2 Disclaimer: Minor errors in drywall finishing foreman may be present as this note was dictated using voice recognition software.
[2024-07-07 19:17] LABS: Troponin I < 0.002 ng/mL (0.0-0.045)
--- NOTE | 2024-07-07 20:16 | PC.RT ---
Respoded to the Rapid Response immediately, pt on 1.5L nc hr 105 RR22, spo2 95% RT student assissted with EKG RT DC at 18:37.
--- NOTE | 2024-07-07 20:33 | PC.NURSE ---
Called DR. Rowley to report that pt is complaining of dizziness, feeling light headed, sweaty, hot, and reports to have trouble breathing. temp is 98.1, HR SR 96/97, will come to assess pt.
--- NOTE | 2024-07-07 21:00 | XR_ITS ---
Examination: AP chest single view TECHNIQUE: AP portable chest single view Date and time: July 07, 2024 2106 hours Comparison July 07, 2024 1837 hours INDICATIONS: Post right chest tube placement for right pleural effusion FINDINGS: Chest tube tip more cephalad in position on the current study Extensive pleural and parenchymal disease right hemithorax remains IMPRESSION: Extensive right pleural fluid with right pneumonia remains
--- NOTE | 2024-07-07 21:09 | PC.NURSE ---
Dr. Rowley came to room to assess pt, new orders, see MAR/orders.
[2024-07-07] MEDS: RINGERS LACTATED 1000 ML 500 ML 999 ML IV (22:12)
[2024-07-08] VITALS (12 sets, daily range): BP systolic 114–136; BP diastolic 74–91; PULSE 77–108; RESP 17–30; TEMP 36.2–38.8; O2SAT 94–96; BMI 29.2
[2024-07-08] MEDS: HYDROmorphone INJ 2 MG/ML VIAL 1 MG IVP ×4 (03:29→21:56)
[2024-07-08] MEDS: PIPER/TAZO 3.375 GM PREMIX 3.375 GM/50 ML BAG IV ×3 (05:26→21:02)
--- NOTE | 2024-07-08 05:56 | PC.NURSE ---
Per Dr. Rowley, ICU MD will come to check chest tube. Md was made aware that chest tube is not draining.
--- NOTE | 2024-07-08 06:28 | PC.NURSE ---
pt refusing bed alarm, pt educated about the importance of having bed alarm on for safety but still refused, pt educated on fall risks/fall prevention measures and to use call light to get assistance if needed, pt verbalizes understanding.
--- NOTE | 2024-07-08 06:42 | XR_ITS ---
Examination: AP chest single view Technique one AP portable semiupright chest single view Date and time: July 08, 2024 0800 hours Comparison July 07, 2024 INDICATIONS: Fever chills shortness of breath this week, post chest tube placement FINDINGS: Extensive pneumonia and prominent pleural disease right hemithorax Stable position right chest tube No significant cardiac enlargement Left lung clear IMPRESSION: Stable position right chest tube Extensive pneumonia and pleural disease right hemithorax
[2024-07-08 06:54] LABS: Albumin, Serum 3.7 gm/dL (3.5-5.0); Anion Gap 10 (7-16); BUN/Creatinine Ratio 11 Ratio (12-20); Blood Urea Nitrogen 9 mg/dL (9-23); Calcium 8.6 mg/dL (8.3-10.6); Calcium (Corrected) 8.8 mg/dL (8.5-10.1); Carbon Dioxide 26.4 mMol/L (20.0-31.0); Chloride 101 mMol/L (98-107); Creatinine (Component) 0.8 mg/dL (0.6-1.3); Estimated Creatinine Clearance 122.3 mL/min (>60); Glucose 136 mg/dL (74-106); Osmolality,Calculated 274 (275-295); Phosphorous 3.7 mg/dL (2.4-5.1); Sodium 137 mMol/L (136-145); eGFR > 60 See Note
[2024-07-08] MEDS: DOXYCYCLINE 100 MG TABLET PO ×2 (09:15→20:03)
[2024-07-08] MEDS: FLUCONAZOLE 100 MG TABLET 400 MG PO (09:15)
[2024-07-08] MEDS: carVEDILOL 3.125 MG TABLET PO ×2 (09:16→16:59)
[2024-07-08] MEDS: LACTOBACILLUS RHAMNOSUS 1 CAP PO ×2 (09:16→20:03)
[2024-07-08] MEDS: PANTOPRAZOLE 40 MG TABLET PO (09:16)
--- NOTE | 2024-07-08 09:22 | PC.NURSE ---
suctioned turned on via chest tube at this time. slight bubbles at 25ml.
[2024-07-08] MEDS: ACETAMINOPHEN 500 MG TABLET 1000 MG PO ×2 (11:36→20:03)
--- NOTE | 2024-07-08 12:31 | ESPR_ITS ---
Documentation for date of: 07/08/24 Subjective Subjective Interval history: Patient is a 43-year-old male with a past medical history of hypertension and a past medical history of right-sided cocci pneumonia complicated by pleural effusion s/p thoracentesis on 06/14/2024 and started on fluconazole 400 mg daily on 06/14/2024. Patient was subsequently discharged on 06/15/2024 with instructions to continue taking fluconazole 400 mg daily for cocci valley fever. Patient returned to the emergency room and was readmitted on 07/05/2024 after concern by primary care provider for pleural effusion. Patient denied pyrexia or chills. Denied recent sick contacts. Positive for pleuritic chest pain. Patient was readmitted on 07/07/2024 with recurrent right-sided pleural effusion and cocci pneumonia with superimposed bacterial pneumonia. Primary team started patient fluconazole 400 mg p.o. daily, doxycycline and IV Zosyn. 07/07/2024: ICU consulted for right pleural effusion and chest tube placement. 07/08/2024: Rapid response called on 07/07/2024 for chest pressure and discomfort. Repeat chest x-ray no showing any changes and repeat EKG during rapid sinus tachycardia. Overnight, night floors team contacted as patient was complaining of pain at site of chest tube w/ 9 swiss, repeat x-ray, overall no significant changes in location. This morning at bedside patinet denied any worsening pain from site 5/10, after pain medication received. No chest pain reported this morning or shortness of breath. Patient stated he continued to take Fluconazole even after previous discharge form the hospital in early June. Plan for manual aspiration via three way valve of pleural fluids. 10:00 AM After manual aspiration of pleural fluid via three way stopcock, total of 350 collected into chest tube. Chest tube on low suction as of this morning. Continue to monitor total output, goal less than 2.5 L for the next 24 hours. Second trial of manual aspiration from stopcock planned for late evening. 2:49 PM Second attempt at manual aspiration with syringe, approximately additional 100 cc of fluid removed. Despite several attempts, decreasing fluid return despite patient reposition and swiss catheter reposition as it was pulled back. Decision was made to pull swiss catheter as there has been minimal return despite manual aspiration. Total pleural fluid in chest drainage system-->475 cc. Lithuanian catheter removed and puncture site sealed with petroleum dressing and gauze applied to site. Tape applied to area. Exam Vital Signs Temp Pulse Resp BP Pulse Ox O2 Del Method O2 Flow Rate 97.1 F 102 H 21 H 123/91 H 95 Nasal Cannula 3 07/08/24 08:00 07/08/24 12:00 07/08/24 08:00 07/08/24 09:16 07/08/24 09:00 07/08/24 08:00 07/08/24 09:00 Narrative Exam General Appearance: Alert & Oriented X3, well-nourished male who is lying in bed in mild discomfort secondary to chest tube HEENT: Skull symmetrical and atraumatic. Conjunctivae pink and moist. Pupils equal, round, reactive to light and accommodation (PERRL). External ear without lesion or discharge. Straight, nares patient, mucosa pink, no discharge. No thyroid nodule appreciated. No cervical lymphadenopathy. Cardio: Normal Rate and Rhythm with S1 and S2 heart sounds. No murmurs or extra heart sounds auscultated. No bruits on carotid auscultation. No peripheral edema or cyanosis. Lungs: Symmetric with good expansion. Chest and back non-tender. Breath sounds vesicular on left and decreased vesicular breath sounds on right pulmonary lung castillo. Abdomen: Non-tender, Non-distended, Normal Reactive Bowel Sounds Neuro: Alert, cooperative, oriented to person, place, and time. Speech clear. CN grossly intact. Upper motor strength 5/5 and Lower motor strength 5/5. Sensation intact. Objective Labs 07/09/24 04:56 07/10/24 04:55 Labs: Laboratory Results - last 24 hr 07/07/24 07/07/24 07/08/24 13:15 18:44 05:47 Sodium 137 Potassium 4.0 Chloride 101 Carbon Dioxide 26.4 Anion Gap 10 BUN 9 Creatinine 0.8 Estim Creat Clear Calc 122.3 eGFR > 60 BUN/Creatinine Ratio 11 L Glucose 136 H Calculated Osmolality 274 L Calcium 8.6 Corrected Calcium 8.8 Phosphorus 3.7 Troponin I < 0.002 Albumin 3.7 Pleural Color Yellow Pleural Appearance Hazy Pleural WBC 800 Pleural RBC 1000 Pleural Polynuclear WBC 9 Pleural Mononuclear WBC 91 Quality Measures Quality Measures none Assessment & Plan Assessment Current Active Medications: Generic Name Dose Route Start Last Admin Trade Name Freq PRN Reason Stop Dose Admin Acetaminophen 1,000 mg 07/07/24 07:30 07/08/24 11:36 Acetaminophen 500 Mg Tablet PO 08/03/24 16:14 1,000 mg Q6H PRN Administration fever >99 Carvedilol 3.125 mg 07/07/24 08:00 07/08/24 09:16 Carvedilol 3.125 Mg Tablet PO 08/06/24 07:59 3.125 mg BIDWM CYNTHIA Administration Doxycycline Hyclate 100 mg 07/07/24 09:00 07/08/24 09:15 Doxycycline 100 Mg Tablet PO 07/11/24 08:59 100 mg BID CYNTHIA Administration Fluconazole 400 mg 07/04/24 16:30 07/08/24 09:15 Fluconazole 100 Mg Tablet PO 07/11/24 16:29 400 mg QDAY CYNTHIA Administration Hydromorphone HCl 1 mg 07/07/24 19:02 07/08/24 09:12 Hydromorphone Inj 2 Mg/Ml Vial IVP 07/12/24 14:34 1 mg Q4HR PRN Administration BREAKTHROUGH PAIN Protocol Hyoscyamine 0.25 mg 07/07/24 08:06 Hyoscyamine Sulf 0.125 Mg Tab.Subl PO 08/06/24 08:05 Q4HR PRN spasmodic abdominal pain Piperacillin/Tazobactam/Dextrose 3.375 gm in 50 mls @ 100 mls/hr 07/06/24 10:00 07/08/24 05:26 Zosyn IV 07/13/24 09:59 100 mls/hr Q8HR CYNTHIA Administration Ketorolac Tromethamine 30 mg 07/07/24 18:22 07/07/24 18:26 Ketorolac Inj 30 Mg/Ml Vial IVP 07/12/24 18:21 30 mg Q6HR PRN Administration PAIN Protocol Lactobacillus Rhamnosus 1 cap 07/07/24 09:00 07/08/24 09:16 Lactobacillus Rhamnosus 1 Cap PO 08/06/24 08:59 1 cap BID CYNTHIA Administration Lidocaine 1 patch 07/06/24 09:06 07/06/24 09:26 Lidocaine 5% 1 Patch TOP 08/05/24 09:05 1 patch UD PRN Administration PAIN Protocol Morphine Sulfate 2 mg 07/07/24 18:27 Morphine Sulf Inj 10 Mg/Ml Vial IVP 07/12/24 13:36 Q4HR PRN Pain 7-10 Ondansetron HCl 4 mg 07/04/24 16:15 Ondansetron Inj 2 Mg/Ml Inj 2 Ml IVP 08/03/24 16:14 Q6H PRN NAUSEA OR VOMITING Protocol Pantoprazole Sodium 40 mg 07/08/24 09:00 07/08/24 09:16 Pantoprazole 40 Mg Tablet PO 08/07/24 08:59 40 mg QDAY CYNTHIA Administration Protocol Sodium Chloride 3 ml 07/04/24 16:15 Sodium Chloride Rt Willow 0.9% 3 Ml Nebu INH 08/03/24 16:14 PRN PRN SOLN Plan Patient is a 43-year-old male with a past medical history of hypertension and a past medical history of right-sided cocci pneumonia complicated by pleural effusion s/p thoracentesis on 06/14/2024 who was admitted on on 07/07/2024 for recurrent right sided pleural effusion and cocci pneumonia and ICU following for chest tube management. BRAND MARKETING COORDINATOR: Stable CVS: Problem: Primary Hypertension DDx: Home medication of Losartan 100 mg Qday. Patient was started on Carvedilol 3.125 mg BIDWM. RRx: hold home medication Rxx: Monitor BP, hold medication Problem: Sinus Tachycardia DDx: Sinus Tachycardia in the setting of pleuritic chest pain and discomfort secondary to chest tube (9 Lithuanian) Dx: Rx: Carvedilol 3.125 mg BIDWM Rxx: Pain management, treat underlying plerual effusion Respiratory Problem: R. Sided Pleural Effusion s/p Thoracentesis (06/14/2024) and Chest swiss catheter s/p (07/07/2024) DDx: R. sided pleural effusion likely secondary to Cocci pneumonia (IgM), complicated by superimposed pneumonia given CT chest VS Malignancy but less likely as patient denied recent weight loss but cytology pending. MRSA Negative. Cytology ordered. Dx: Lights Criteria: Exudative Effusion (Total protein 7.1, Pleural Fluid 6/Serum LDH 157, Plerual Fluid 102). CT Chest: Extensive right lung pneumonia. Large right pleural effusion. Primary hepatocellular disease Rx: s/p Chest Tube (07/07/2024): After manual aspiration, total of 475 cc in chest drainage system and decision made to remove chest swiss catheter. Chest x-ray ordered after removal of swiss catheter--> no pneumothorax noted. Consider CT guided chest tube placement by IR. Rxx: Pending cytology and cultures GI: Stable GI prophylaxis: Pantoprazole 40 mg IV Qday Heme: Stable DVT prophylaxis: Compression Device ID: Problem: Cocci pneumonia complicated by recurrent R. Sided Pleural Effusion s/p Thoracentesis (06/14/24) Superimposed bacterial pneumonia, s/p chest tube 07/07/2024 DDx: Past medical history of cocci pneumonia complicated by recurrent right sided pleural effusion. HIV negative. Dx:Cxr: large right sided pleural effusion, CT Chest: Extensive right lung pneumonia. Large right pleural effusion. Primary hepatocellular disease Rx: IV Zosyn (), Doxycycline (07/04/2024), Fluconazole 400 mg Daily (07/04/2024--) Rxx: Sputum Culture pending, de-escalate antibiotics as cultures results,consider Hepatitis testing Health Maintenance: Disp: Pt is currently admitted to floors for further management of Cocci pneumonia complicated by recurrent right sided exudative pleural effusion, ICU team consulted for chest tube placement FEN: Low sodium diet DVT: compression device GI: Protonix Code: Full Code - The patient's plan was discussed with attending Dr. Iban Eaton MD PGY1 Internal Medicine
--- NOTE | 2024-07-08 13:03 | PD.RESPRO ---
Documentation for date of: 07/08/24 Subjective Subjective Interval history: Patient was seen and examined at bedside this AM. No acute events overnight. Patient tolerating diet, adequate urine output and mentation is at baseline. ICU placed chest tube drain on 07/07/2024, initially good output, however reduced output noted overnight. Previous pleural fluid analysis confirmed exudative effusion. Will follow up recent studies. ICU to reposition tube, will monitor over the next 24 hours. Will continue antibiotic regimen adjusted to Zosyn and PO Doxy. Exam Vital Signs Temp Pulse Resp BP Pulse Ox O2 Del Method O2 Flow Rate 97.1 F 102 H 21 H 123/91 H 95 Nasal Cannula 3 07/08/24 08:00 07/08/24 12:00 07/08/24 08:00 07/08/24 09:16 07/08/24 09:00 07/08/24 08:00 07/08/24 09:00 Narrative Exam Constitutional Alert, oriented x3 and comfortable HEENT Vision grossly intact. Patent nares. Trachea midline. On 2L oxygen via NC Respiratory Chest normal on inspection and clear to auscultation bilaterally. RT chest drain in place, connected to pleural-vac Cardiovascular S1 and S2 audible, RRR. No murmurs or carotid bruit. No gross JVD. Abdominal Soft and BS + ; non tender to palpation in all quadrants. Genitourinary No bladder tenderness, no flank pain. Normal to palpation. Musculoskeletal Extremities tone within normal limits. No LE edema. Neurological CN II - XII grossly intact. Extremity motor and sensation grossly intact. Skin Warm, dry and intact. No apparent lesions. Psychiatric Patient has a good affect, is cooperative. Objective Labs 07/09/24 04:56 07/09/24 04:56 Labs: Laboratory Results - last 24 hr 07/07/24 07/07/24 07/08/24 13:15 18:44 05:47 Sodium 137 Potassium 4.0 Chloride 101 Carbon Dioxide 26.4 Anion Gap 10 BUN 9 Creatinine 0.8 Estim Creat Clear Calc 122.3 eGFR > 60 BUN/Creatinine Ratio 11 L Glucose 136 H Calculated Osmolality 274 L Calcium 8.6 Corrected Calcium 8.8 Phosphorus 3.7 Troponin I < 0.002 Albumin 3.7 Pleural Color Yellow Pleural Appearance Hazy Pleural WBC 800 Pleural RBC 1000 Pleural Polynuclear WBC 9 Pleural Mononuclear WBC 91 Quality Measures Quality Measures none Assessment & Plan Assessment Current Active Medications: Generic Name Dose Route Start Last Admin Trade Name Freq PRN Reason Stop Dose Admin Acetaminophen 1,000 mg 07/07/24 07:30 07/08/24 11:36 Acetaminophen 500 Mg Tablet PO 08/03/24 16:14 1,000 mg Q6H PRN Administration fever >99 Carvedilol 3.125 mg 07/07/24 08:00 07/08/24 09:16 Carvedilol 3.125 Mg Tablet PO 08/06/24 07:59 3.125 mg BIDWM CYNTHIA Administration Doxycycline Hyclate 100 mg 07/07/24 09:00 07/08/24 09:15 Doxycycline 100 Mg Tablet PO 07/11/24 08:59 100 mg BID CYNTHIA Administration Fluconazole 400 mg 07/04/24 16:30 07/08/24 09:15 Fluconazole 100 Mg Tablet PO 07/11/24 16:29 400 mg QDAY CYNTHIA Administration Hydromorphone HCl 1 mg 07/07/24 19:02 07/08/24 09:12 Hydromorphone Inj 2 Mg/Ml Vial IVP 07/12/24 14:34 1 mg Q4HR PRN Administration BREAKTHROUGH PAIN Protocol Hyoscyamine 0.25 mg 07/07/24 08:06 Hyoscyamine Sulf 0.125 Mg Tab.Subl PO 08/06/24 08:05 Q4HR PRN spasmodic abdominal pain Piperacillin/Tazobactam/Dextrose 3.375 gm in 50 mls @ 100 mls/hr 07/06/24 10:00 07/08/24 05:26 Zosyn IV 07/13/24 09:59 100 mls/hr Q8HR CYNTHIA Administration Ketorolac Tromethamine 30 mg 07/07/24 18:22 07/07/24 18:26 Ketorolac Inj 30 Mg/Ml Vial IVP 07/12/24 18:21 30 mg Q6HR PRN Administration PAIN Protocol Lactobacillus Rhamnosus 1 cap 07/07/24 09:00 07/08/24 09:16 Lactobacillus Rhamnosus 1 Cap PO 08/06/24 08:59 1 cap BID CYNTHIA Administration Lidocaine 1 patch 07/06/24 09:06 07/06/24 09:26 Lidocaine 5% 1 Patch TOP 08/05/24 09:05 1 patch UD PRN Administration PAIN Protocol Morphine Sulfate 2 mg 07/07/24 18:27 Morphine Sulf Inj 10 Mg/Ml Vial IVP 07/12/24 13:36 Q4HR PRN Pain 7-10 Ondansetron HCl 4 mg 07/04/24 16:15 Ondansetron Inj 2 Mg/Ml Inj 2 Ml IVP 08/03/24 16:14 Q6H PRN NAUSEA OR VOMITING Protocol Pantoprazole Sodium 40 mg 07/08/24 09:00 07/08/24 09:16 Pantoprazole 40 Mg Tablet PO 08/07/24 08:59 40 mg QDAY CYNTHIA Administration Protocol Sodium Chloride 3 ml 07/04/24 16:15 Sodium Chloride Rt Willow 0.9% 3 Ml Nebu INH 08/03/24 16:14 PRN PRN SOLN Plan Mr Beyer is a 43-year-old male with past medical history of hypertension, recent diagnosis of valley fever and recent discharge on 06/15/2024 presented to the ED due to fevers chills and shortness of breath. Patient will be admitted for right pleural effusion secondary to coccidiomycosis versus superimposed bacterial pneumonia. Right-sided Exudative pleural effusion s/p Thoracentesis Cocci pneumonia Pleuritis Superimposed bacterial pneumonia On arrival patient was spiking fevers, tachycardic, tachypneic, saturating 94% on room air, leukocytosis however no evidence of endorgan damage CXR: Large right sided pleural effusion Previous admission had US to evaluate pleural effusion however was not tapped due to insufficient fluid had 3.3L removal of fluid per lights criteria likely exudative effusions 07/07 : s/p RT thoracic pigtail drain 07/08 : ICU to reposition tube, will monitor over the next 24 hours. Plan: - Fluconazole PO 400 mg daily (07/04- - PO Doxycycline (07/04? - IV Zosyn (07/06/- - Will follow ICU shipping and receiving operator instructions. Goal: clamp chest tube if more than 2.5 L in 24hrs - Follow up pleural studies, previously noted to be exudative. Will follow-up with cultures and cytology. - Will repeat cocci IgM and IgG as titers from previous studies were negative. - Pain control: Tylenol (1-3), Morphine (4-10) and Dilaudid 1mg for breakthrough pain Primary Hypertension Sinus Tachycardia At home takes losartan 100 mg daily BP 12-130s systolic on Losartan 50mg inpatient HR 110-120s , likely pain and hypoxia induced Plan: - Discontinued losartan 50mg daily - Started on Carvedilol 3.125mg BIDWM Health Maintenance: Disposition: Med telemetry, s/p RT chest drain w/ pleural vac, limit drainage to 2500 mL daily. Fluids: None Feeding: cardiac Thrombo prophylaxis: SCDs Gastric Ulcer prophylaxis: Not indicated CODE STATUS: Full code Plan of care discussed with attending Arvind Valentin M.D. PGY2 Disclaimer: Minor errors in lead sustainability specialist may be present as this note was dictated using voice recognition software. Attending Provider Attestation/Addendum Duy, Gabriella Kim DO, attest that I was physically present for the mensah portions of the service and evaluated the patient with the resident and I reviewed and discussed the case with the resident and agree with the resident's findings and plans of care as documented above Patient seen eval this a.m. He continues to have some discomfort in his right chest due to chest tube placement. Minimal drainage overnight about 20 cc of straw-colored fluid was noted in the Pleur-evac. Case was discussed with shipping and receiving operator who later manually aspirated from chest tube. 500 cc of straw-colored fluid was removed. However, due to patient discomfort, chest tube was removed. Will have IR do CT-guided thoracentesis in AM.Patient has been afebrile overnight otherwise. Will continue with IV antibiotics at this time and repeat cocci as titers of cocci were negative. Pending fluid cultures.
--- NOTE | 2024-07-08 14:43 | PC.SS ---
rounding note: pt will need another day observation;
--- NOTE | 2024-07-08 14:49 | XR_ITS ---
Examination: AP chest single view TECHNIQUE: AP portable semiupright chest single view Date and time: July 08, 2024, 1518 hours Comparison July 08, 2024 INDICATIONS: History fever chills, status post removal chest tube FINDINGS: Pneumonia right mid and lower lung zone with significant right pleural fluid Chest tube no longer identified No pneumothorax Mild prominence left ventricle Blunting of left lateral costophrenic angle IMPRESSION: Stable pneumonia and pleural disease right hemithorax
--- NOTE | 2024-07-08 15:03 | PD.RESEVENT ---
Documentation for date of: 07/08/24 Event Note Event Note: Minimal chest tube output overnight. Pleur-vac system on suction with good tidaling, no leak. This morning, the stopcock valve was exchanged from a two-way to a three-way. A 60cc syringe was used to manually aspirate fluid. The patient was lying on his right lateral, supine. About 250cc of fluid was easily removed. The patient was repositioned upright and another 100cc of fluid was aspirated. Patient tolerated well. I re-evaluated the patient around 14:00 and attempted to manually aspirate more fluid. Patient was repositioned on his right lateral, then upright with difficultly aspirating more fluid. The dressing was removed and the suture was cut, and the catheter was slowly withdrawn, while holding negative pressure to aspirate fluid. There was minimal output so the catheter was removed as the patient held expiration. Petroleum gauze and non-adhesive dressing was placed. Patient tolerated well, was in no respiratory distress and was saturating 97% on 2L NC. An x-ray is pending at this time. The total amount of fluid manually aspirated today was 500cc. I discussed the plan with my attending, Dr. Iban Haji MD PGY-3 ICU Resident
[2024-07-09] VITALS (11 sets, daily range): BP systolic 112–127; BP diastolic 59–96; PULSE 74–114; RESP 17–29; TEMP 36.6–37.9; O2SAT 93–97
[2024-07-09] MEDS: MORPHINE SULF INJ 10 MG/ML VIAL 2 MG IVP (03:28)
[2024-07-09] MEDS: PIPER/TAZO 3.375 GM PREMIX 3.375 GM/50 ML BAG IV ×3 (05:04→21:05)
[2024-07-09 05:42] LABS: Basophils % (Auto) 0 % (0-2.5); Eosinophils # (Auto) 0.5 Thou/mm3 (0.0-0.5); Eosinophils % (Auto) 5 % (0-10); Hematocrit 35.3 % (41.0-53.0); Hemoglobin 11.5 g/dL (13.5-16.0); Immature Granulocytes % (Auto) 1 % (0-0); Immature Granulocytes Auto 0.05 Thou/mm3 (0.00-0.00); Lymphocytes # (Auto) 1.2 Thou/mm3 (1.0-4.8); Lymphocytes % (Auto) 13 % (10-50); Mean Corpuscular HGB Conc 32.6 g/dl (31.0-37.0); Mean Corpuscular Hemoglobin 29.2 pg (25.0-35.0); Mean Corpuscular Volume 90 fL (80-100); Monocytes # (Auto) 1.2 Thou/mm3 (0.0-0.8); Monocytes % (Auto) 13 % (0-12); Neutrophils # (Auto) 6.1 Thou/mm3 (1.8-7.7); Neutrophils % (Auto) 68 % (37-80); Nucleated Red Blood Cell % 0 /100 WBC (0); Platelet Count 367 Thou/mm3 (140-440); RDW Standard Deviation 40.4 fL (35.1-43.9); Red Blood Count 3.94 Miln/mm3 (4.50-5.90)
--- NOTE | 2024-07-09 05:42 | ESPR_ITS ---
Subjective Subjective Interval history: cx neg. on iv rx with neg cocci test at [facility] not yet repeated Exam Vital Signs Temp Pulse Resp BP Pulse Ox O2 Del Method O2 Flow Rate 99.0 F 100 19 126/92 H 97 Nasal Cannula 3 07/09/24 04:00 07/09/24 04:00 07/09/24 04:00 07/09/24 04:00 07/09/24 04:00 07/09/24 04:00 07/09/24 04:00 Narrative Exam not seen. ordered test Objective - Internal Medicine Labs 07/07/24 04:48 07/08/24 05:47 Labs: Laboratory Results - last 24 hr 07/08/24 05:47 Sodium 137 Potassium 4.0 Chloride 101 Carbon Dioxide 26.4 Anion Gap 10 BUN 9 Creatinine 0.8 Estim Creat Clear Calc 122.3 eGFR > 60 BUN/Creatinine Ratio 11 L Glucose 136 H Calculated Osmolality 274 L Calcium 8.6 Corrected Calcium 8.8 Phosphorus 3.7 Albumin 3.7 Assessment & Plan A&P Narrative pneumonia with neg cocci test at [facility] will repeat cocci home ok if sufficiently improved Time Spent With Patient Time: Total time spent is greater than 50% in coordination of care (as documented) at patient's floor/unit and/or counseling patient:
[2024-07-09 06:12] LABS: Albumin, Serum 3.8 gm/dL (3.5-5.0); Anion Gap 9 (7-16); BUN/Creatinine Ratio 9 Ratio (12-20); Blood Urea Nitrogen 7 mg/dL (9-23); Calcium 9.4 mg/dL (8.3-10.6); Calcium (Corrected) 9.6 mg/dL (8.5-10.1); Carbon Dioxide 28.2 mMol/L (20.0-31.0); Chloride 97 mMol/L (98-107); Creatinine (Component) 0.8 mg/dL (0.6-1.3); Glucose 105 mg/dL (74-106); Osmolality,Calculated 266 (275-295); Phosphorous 3.8 mg/dL (2.4-5.1); Procalcitonin 0.06 ng/ml (0.0-0.49); Sodium 134 mMol/L (136-145); eGFR > 60 See Note
[2024-07-09 06:30] LABS: HIV (1&2) Antibody Rapid Non-Reactive
[2024-07-09 07:04] LABS: Legionella Ag, EIA, Urine* NOT DETECTED
[2024-07-09] MEDS: ACETAMINOPHEN 500 MG TABLET 1000 MG PO (08:33)
[2024-07-09] MEDS: DOXYCYCLINE 100 MG TABLET PO ×2 (08:33→21:06)
[2024-07-09] MEDS: carVEDILOL 3.125 MG TABLET PO ×2 (08:33→16:40)
[2024-07-09] MEDS: FLUCONAZOLE 100 MG TABLET 400 MG PO (08:33)
[2024-07-09] MEDS: PANTOPRAZOLE 40 MG TABLET PO (08:34)
[2024-07-09] MEDS: LACTOBACILLUS RHAMNOSUS 1 CAP PO ×2 (08:34→21:05)
--- NOTE | 2024-07-09 10:30 | PC.SS ---
rounding note: Patient pending thoracentesis
--- NOTE | 2024-07-09 12:00 | PD.RESPRO ---
Documentation for date of: 07/09/24 Subjective Subjective Interval history: Late in the evening Pt had fever of 101.9 and was given 1000 mg of tylenol. Pt is seen and examined at bedside this morning. Currently saturating 97% on 2L O2 via NC. Pt complains of dull pain and tenderness on right side of chest at the location where chest tube was placed, which was removed yesterday due to discomfort pt was unable tolerate. Pt was ordered US guided thoracenthesis however per IR there was not enough fluid to tap. Pleural fluid is estimated to be less than 50cc. Will follow up with ICU for bedside US tomorrow to monitor pleural fluid. vitals and labs are stable, pleural fluid cultures is pending. Will continue zosyn, doxycycline and flucanozole. Pending ID recs. Pt has no other complains. Exam Vital Signs Temp Pulse Resp BP Pulse Ox O2 Del Method O2 Flow Rate 100.2 F 74 23 H 112/59 L 93 L Nasal Cannula 97 07/09/24 08:33 07/09/24 08:33 07/09/24 08:00 07/09/24 08:33 07/09/24 08:00 07/09/24 08:00 07/09/24 09:00 Narrative Exam GENERAL: A&Ox3 . Awake, Not in acute distress, saturating on 2L O2 via NC. NEURO: no focal neurological deficits noted HEENT: Atraumatic, Normocephalic. mucous membranes moist. Eyes open, symmetrical, & clear HEART: Normal Heart Sounds LUNGS: No wheezing or crackles heard, decreased breath sound on right, chest tube site is dry and clean ABDOMEN: soft, non-distended, non-tender, bowel sounds heard, no guarding or rebound tenderness SKIN: No Rash or ecchymoses EXTREMITIES: No edema, tenderness, able to move all 4 extremities, pedal pulses palpated Objective Labs 07/09/24 04:56 07/10/24 04:55 Labs: Laboratory Results - last 24 hr 07/04/24 07/09/24 22:50 04:56 WBC 9.0 RBC 3.94 L Hgb 11.5 L Hct 35.3 L MCV 90 MCH 29.2 MCHC 32.6 RDW Std Deviation 40.4 Plt Count 367 D Neut % (Auto) 68 Lymph % (Auto) 13 Bennett % (Auto) 13 H Eos % (Auto) 5 Baso % (Auto) 0 Neut # (Auto) 6.1 Lymph # (Auto) 1.2 Bennett # (Auto) 1.2 H Eos # (Auto) 0.5 Baso # (Auto) 0.0 Immature Gran # (Auto) 0.05 H Absolute Nucleated RBC 0.00 Immature Gran % 1 H Nucleated RBC % 0 Sodium 134 L Potassium 4.0 Chloride 97 L Carbon Dioxide 28.2 Anion Gap 9 BUN 7 L Creatinine 0.8 Estim Creat Clear Calc 120.0 eGFR > 60 BUN/Creatinine Ratio 9 L Glucose 105 Calculated Osmolality 266 L Calcium 9.4 Corrected Calcium 9.6 Phosphorus 3.8 Albumin 3.8 Procalcitonin 0.06 HIV 1&2 Antibody Rapid Non-Reactive Urine Legionella Ag NOT DETECTED Quality Measures Quality Measures none Assessment & Plan Assessment Current Active Medications: Generic Name Dose Route Start Last Admin Trade Name Freq PRN Reason Stop Dose Admin Acetaminophen 1,000 mg 07/07/24 07:30 07/09/24 08:33 Acetaminophen 500 Mg Tablet PO 08/03/24 16:14 1,000 mg Q6H PRN Administration fever >99 Carvedilol 3.125 mg 07/07/24 08:00 07/09/24 08:33 Carvedilol 3.125 Mg Tablet PO 08/06/24 07:59 3.125 mg BIDWM CYNTHIA Administration Doxycycline Hyclate 100 mg 07/07/24 09:00 07/09/24 08:33 Doxycycline 100 Mg Tablet PO 07/11/24 08:59 100 mg BID CYNTHIA Administration Fluconazole 400 mg 07/04/24 16:30 07/09/24 08:33 Fluconazole 100 Mg Tablet PO 07/11/24 16:29 400 mg QDAY CYNTHIA Administration Hydromorphone HCl 1 mg 07/07/24 19:02 07/08/24 21:56 Hydromorphone Inj 2 Mg/Ml Vial IVP 07/12/24 14:34 1 mg Q4HR PRN Administration BREAKTHROUGH PAIN Protocol Hyoscyamine 0.25 mg 07/07/24 08:06 Hyoscyamine Sulf 0.125 Mg Tab.Subl PO 08/06/24 08:05 Q4HR PRN spasmodic abdominal pain Piperacillin/Tazobactam/Dextrose 3.375 gm in 50 mls @ 100 mls/hr 07/06/24 10:00 07/09/24 05:04 Zosyn IV 07/13/24 09:59 100 mls/hr Q8HR CYNTHIA Administration Ketorolac Tromethamine 30 mg 07/07/24 18:22 07/07/24 18:26 Ketorolac Inj 30 Mg/Ml Vial IVP 07/12/24 18:21 30 mg Q6HR PRN Administration PAIN Protocol Lactobacillus Rhamnosus 1 cap 07/07/24 09:00 07/09/24 08:34 Lactobacillus Rhamnosus 1 Cap PO 08/06/24 08:59 1 cap BID CYNTHIA Administration Lidocaine 1 patch 07/06/24 09:06 07/06/24 09:26 Lidocaine 5% 1 Patch TOP 08/05/24 09:05 1 patch UD PRN Administration PAIN Protocol Morphine Sulfate 2 mg 07/07/24 18:27 07/09/24 03:28 Morphine Sulf Inj 10 Mg/Ml Vial IVP 07/12/24 13:36 2 mg Q4HR PRN Administration Pain 7-10 Ondansetron HCl 4 mg 07/04/24 16:15 Ondansetron Inj 2 Mg/Ml Inj 2 Ml IVP 08/03/24 16:14 Q6H PRN NAUSEA OR VOMITING Protocol Pantoprazole Sodium 40 mg 07/08/24 09:00 07/09/24 08:34 Pantoprazole 40 Mg Tablet PO 08/07/24 08:59 40 mg QDAY CYNTHIA Administration Protocol Sodium Chloride 3 ml 07/04/24 16:15 Sodium Chloride Rt Willow 0.9% 3 Ml Nebu INH 08/03/24 16:14 PRN PRN SOLN Plan Mr. Beyer is a 43-year-old male with past medical history of hypertension, recent diagnosis of valley fever and recent discharge on 06/15/2024 presented to the ED due to fevers chills and shortness of breath. Patient will be admitted for right pleural effusion secondary to coccidiomycosis versus superimposed bacterial pneumonia. Right-sided Exudative pleural effusion s/p Thoracentesis Cocci pneumonia Pleuritis Superimposed bacterial pneumonia On arrival patient was spiking fevers, tachycardic, tachypneic, saturating 94% on room air, leukocytosis however no evidence of endorgan damage CXR: Large right sided pleural effusion Previous admission had US to evaluate pleural effusion however was not tapped due to insufficient fluid had 3.3L removal of fluid per lights criteria likely exudative effusions 07/07 : s/p RT thoracic pigtail drain 07/08 : ICU to reposition tube, will monitor over the next 24 hours. Plan: - Fluconazole PO 400 mg daily (07/04- - PO Doxycycline (07/04? - IV Zosyn (07/06/- - Chest tube removed on 07/08 - Pt is scheduled for CT guided thoracenthesis by IR today (07/09) - Pleural fluid cultures pending - Follow up pleural studies, previously noted to be exudative. Will follow-up with cultures and cytology. - Cocci IgM positive on 06/13 and pt was started on flucanzole - Will repeat cocci IgM and IgG per ID recommendations - ID on board - Pain control: Tylenol (1-3), Morphine (4-10) and Dilaudid 1mg for breakthrough pain Primary Hypertension Sinus Tachycardia - improved At home takes losartan 100 mg daily BP 12-130s systolic on Losartan 50mg inpatient HR 110-120s , likely pain and hypoxia induced Plan: - Discontinued losartan 50mg daily - Started on Carvedilol 3.125mg BIDWM Health Maintenance: Disposition: Med telemetry, s/p thoracenthesis Fluids: None Feeding: cardiac Thrombo prophylaxis: SCDs Gastric Ulcer prophylaxis: Not indicated CODE STATUS: Full code Assessment and plan discussed with my attending physician Dr. Suzanne Diamond (PGY-1)- Internal medicine resident Attending Provider Attestation/Addendum Gabriella Gordillo DO, attest that I was physically present for the mensah portions of the service and evaluated the patient with the resident and I reviewed and discussed the case with the resident and agree with the resident's findings and plans of care as documented above Patient seen and evaluated this AM. Patient has no acute complaints at this time. Will have IR attempt US guided thorascentesis due to persistent pleural effusion. Patient continues to have fevers overnight. Repeat cocci collected. Will f/u with ID recommendations.
--- NOTE | 2024-07-09 14:27 | XR_ITS ---
Examination: Ultrasound right hemithorax Ultrasound left hemithorax Date and time: July 09, 2024 1449 hours INDICATIONS: Pneumonia right mid and lower lung zone with right pleural fluid on chest x-ray July 08, 2024 TECHNIQUE AND FINDINGS: Grayscale sonographic images right and left hemithoraces No left pleural fluid Minimal right pleural fluid, most of the opacity in the right lung appears to represent extensive right lung pneumonia, please see the CT chest report July 06, 2024 indicating extensive right lung pneumonia IMPRESSION: Minimal right pleural fluid
[2024-07-09] MEDS: LIDOCAINE 5% 1 PATCH TOP (15:07)
[2024-07-09] MEDS: HYDROmorphone INJ 2 MG/ML VIAL 1 MG IVP ×2 (15:48→23:24)
[2024-07-10] VITALS (12 sets, daily range): BP systolic 119–135; BP diastolic 73–89; PULSE 86–991; RESP 16–95; TEMP 36.4–37.7; O2SAT 93–99
[2024-07-10] MEDS: PIPER/TAZO 3.375 GM PREMIX 3.375 GM/50 ML BAG IV ×3 (05:10→21:34)
[2024-07-10 06:14] LABS: Anion Gap 10 (7-16); BUN/Creatinine Ratio 7 Ratio (12-20); Blood Urea Nitrogen 6 mg/dL (9-23); Calcium 8.2 mg/dL (8.3-10.6); Carbon Dioxide 27.7 mMol/L (20.0-31.0); Chloride 100 mMol/L (98-107); Creatinine (Component) 0.9 mg/dL (0.6-1.3); Estimated Creatinine Clearance 106.7 mL/min (>60); Glucose 108 mg/dL (74-106); Osmolality,Calculated 274 (275-295); Sodium 138 mMol/L (136-145); eGFR > 60 See Note
[2024-07-10 06:15] LABS: Albumin, Serum 3.2 gm/dL (3.5-5.0); Calcium (Corrected) 8.8 mg/dL (8.5-10.1)
[2024-07-10] MEDS: DOXYCYCLINE 100 MG TABLET PO ×2 (08:20→21:35)
[2024-07-10] MEDS: FLUCONAZOLE 100 MG TABLET 400 MG PO (08:20)
[2024-07-10] MEDS: carVEDILOL 3.125 MG TABLET PO ×2 (08:20→17:53)
[2024-07-10] MEDS: PANTOPRAZOLE 40 MG TABLET PO (08:21)
[2024-07-10] MEDS: LACTOBACILLUS RHAMNOSUS 1 CAP PO ×2 (08:21→21:34)
[2024-07-10 08:54] LABS: Hepatitis C Antibody Non Reactive (Non React)
[2024-07-10] MEDS: TUBERCULIN PPD INJ 5 UNIT/0.1 ML DOSE ID (11:00)
--- NOTE | 2024-07-10 11:06 | PC.NURSE ---
TB skin test done and administered to left forarm.
[2024-07-10 11:23] LABS: Carcinoembryonic Antigen < 0.5 ng/mL (0.0-5.0)
[2024-07-10] MEDS: LIDOCAINE 5% 1 PATCH TOP (12:48)
[2024-07-10 13:10] LABS: Cocci Serology, IgM Positive (Negative)
[2024-07-10 13:12] LABS: Cocid Sro, CF/ID (UCD) NO CHG* See Sep Rpt
--- NOTE | 2024-07-10 13:17 | ESPR_ITS ---
<Statement entered by Reno Palacios MD - 07/10/24 14:48> Patient examined and case discussed with the team including attending physician. Note reviewed, I agree with the care plan as documented. Mr Beyer is a 43-year-old male with past medical history of hypertension, recent diagnosis of valley fever and recent discharge on 06/15/2024 presented to the ED due to fevers chills and shortness of breath. Patient will be admitted for right-sided Exudative pleural effusion secondary to coccidiomycosis. He is s/p Thoracentesis. Initial CXR: Large right sided pleural effusion. Previous admission had US to evaluate pleural effusion however was not tapped due to insufficient fluid had 3.3L removal of fluid per lights criteria likely exudative effusions. Cocci IgM positive on 06/13 and pt was started on fluconazole. On this admission, 07/08 Chest tube dc by ICU team. 07/10: repeat cocci IgM positive. Plan: Continue Fluconazole PO 400 mg daily + PO Doxycycline (07/04?) and IV Zosyn (07/06/). Discontinued losartan 50mg daily for hypertentsion, started on Carvedilol 3.125mg BIDWM. Follow up Aspergillus, HUMBERTO and PPD results. Modeling Teacher recommends bronchoscopy for bronchial washing. Ordered CEA levels to rule out cancer, patient denies any B symptoms, fevers likely due to infectious etiology. Please refer to the note above for further details. - Reno Palacios MD, PGY 2 Disclaimer: The document may contain phonetic/typographic errors due to voice recognition software. These errors are purely due to imperfections in the software program and should not be misconstrued in any way to compromise the substance of the patient's medical care during this visit. Documentation for date of: 07/10/24 Subjective Subjective Interval history: Patient seen today at the bedside found awake, alert, orientedx3. No overnight events reported. States no active complaints at this time. Vitals and labs reviewed. No fevers reported in the last 24 hours. Spoke to hose tubing backer who will talk to the patient about possible bronchoscopy procedure. Will follow-up repeat cocci testing and f/u cultures, aspergillus, and fluid studies from pleural fluid. We will continue with antibiotic therapy and antifungal therapy. Infectious disease also on board. Exam Vital Signs Temp Pulse Resp BP Pulse Ox O2 Del Method O2 Flow Rate 97.6 F 93 19 135/88 H 95 Room Air 2 07/10/24 08:00 07/10/24 08:20 07/10/24 08:00 07/10/24 08:20 07/10/24 08:00 07/10/24 08:00 07/10/24 07:25 Narrative Exam Physical Exam GENERAL: NAD, AAOx3 HEENT: Moist mucosa. Eyes open, symmetrical, & clear CARDIO: Heart RRR, no obvious murmurs PULM: Decreased breath sounds on the right side GI: Abdomen soft, nondistended, no pain on palpation. BSx4 SKIN/MSK/EXT: No wounds/rashes/edema/amputations, no pain on palpation. Pedal pulses present B/L NEURO: AAOx3, no focal neuro deficits, able to move all 4 extremities Objective Labs 07/09/24 04:56 07/10/24 04:55 Labs: Laboratory Results - last 24 hr 07/10/24 07/10/24 04:55 10:30 Sodium 138 Potassium 5.0 D Chloride 100 Carbon Dioxide 27.7 Anion Gap 10 BUN 6 L Creatinine 0.9 Estim Creat Clear Calc 106.7 eGFR > 60 BUN/Creatinine Ratio 7 L Glucose 108 H Calculated Osmolality 274 L Calcium 8.2 L Corrected Calcium 8.8 Phosphorus 4.0 Albumin 3.2 L D Carcinoembryonic Ag < 0.5 Coccidioides IgM Ab Positive A Hepatitis C Antibody Non Reactive Misc Test Result Cancelled Quality Measures Quality Measures none Assessment & Plan Assessment Current Active Medications: Generic Name Dose Route Start Last Admin Trade Name Augustoq PRN Reason Stop Dose Admin Acetaminophen 1,000 mg 07/07/24 07:30 07/09/24 08:33 Acetaminophen 500 Mg Tablet PO 08/03/24 16:14 1,000 mg Q6H PRN Administration fever >99 Carvedilol 3.125 mg 07/07/24 08:00 07/10/24 08:20 Carvedilol 3.125 Mg Tablet PO 08/06/24 07:59 3.125 mg BIDWM CYNTHIA Administration Doxycycline Hyclate 100 mg 07/07/24 09:00 07/10/24 08:20 Doxycycline 100 Mg Tablet PO 07/11/24 08:59 100 mg BID CYNTHIA Administration Fluconazole 400 mg 07/04/24 16:30 07/10/24 08:20 Fluconazole 100 Mg Tablet PO 07/11/24 16:29 400 mg QDAY CYNTHIA Administration Hydromorphone HCl 1 mg 07/07/24 19:02 07/09/24 23:24 Hydromorphone Inj 2 Mg/Ml Vial IVP 07/12/24 14:34 1 mg Q4HR PRN Administration BREAKTHROUGH PAIN Protocol Hyoscyamine 0.25 mg 07/07/24 08:06 Hyoscyamine Sulf 0.125 Mg Tab.Subl PO 08/06/24 08:05 Q4HR PRN spasmodic abdominal pain Protocol Piperacillin/Tazobactam/Dextrose 3.375 gm in 50 mls @ 100 mls/hr 07/06/24 10:00 07/10/24 05:10 Zosyn IV 07/13/24 09:59 100 mls/hr Q8HR CYNTHIA Administration Ketorolac Tromethamine 30 mg 07/07/24 18:22 07/07/24 18:26 Ketorolac Inj 30 Mg/Ml Vial IVP 07/12/24 18:21 30 mg Q6HR PRN Administration PAIN Protocol Lactobacillus Rhamnosus 1 cap 07/07/24 09:00 07/10/24 08:21 Lactobacillus Rhamnosus 1 Cap PO 08/06/24 08:59 1 cap BID CYNTHIA Administration Lidocaine 1 patch 07/06/24 09:06 07/10/24 12:48 Lidocaine 5% 1 Patch TOP 08/05/24 09:05 1 patch UD PRN Administration PAIN Protocol Morphine Sulfate 2 mg 07/07/24 18:27 07/09/24 03:28 Morphine Sulf Inj 10 Mg/Ml Vial IVP 07/12/24 13:36 2 mg Q4HR PRN Administration Pain 7-10 Ondansetron HCl 4 mg 07/04/24 16:15 Ondansetron Inj 2 Mg/Ml Inj 2 Ml IVP 08/03/24 16:14 Q6H PRN NAUSEA OR VOMITING Protocol Pantoprazole Sodium 40 mg 07/08/24 09:00 07/10/24 08:21 Pantoprazole 40 Mg Tablet PO 08/07/24 08:59 40 mg QDAY CYNTHIA Administration Protocol Sodium Chloride 3 ml 07/04/24 16:15 Sodium Chloride Rt Willow 0.9% 3 Ml Nebu INH 08/03/24 16:14 PRN PRN SOLN Plan 43-year-old male with past medical history of hypertension, recent diagnosis of valley fever and recent discharge on 06/15/2024 presented to the ED due to fevers chills and shortness of breath. Patient will be admitted for right pleural effusion secondary to coccidiomycosis versus superimposed bacterial pneumonia. #Right-sided Exudative pleural effusion s/p Thoracentesis #Cocci pneumonia #Pleuritis #Superimposed bacterial pneumonia On arrival patient was spiking fevers, tachycardic, tachypneic, saturating 94% on room air, leukocytosis however no evidence of endorgan damage CXR: Large right sided pleural effusion Previous admission had US to evaluate pleural effusion however was not tapped due to insufficient fluid had 3.3L removal of fluid per lights criteria likely exudative effusions Chest tube dc by ICU team - Fluconazole PO 400 mg daily (07/04- - PO Doxycycline (07/04? - IV Zosyn (07/06/- - pending possible bronchoscopy - Pleural fluid cultures pending - Follow up pleural studies, previously noted to be exudative. Will follow-up with cultures and cytology. - Cocci IgM positive on 06/13 and pt was started on fluconazole - Will repeat cocci IgM and IgG per ID recommendations - ID on board - Pain control: Tylenol (1-3), Morphine (4-10) and Dilaudid 1mg for breakthrough pain #Primary Hypertension #Sinus Tachycardia - improved At home takes losartan 100 mg daily BP 12-130s systolic on Losartan 50mg inpatient HR 110-120s , likely pain and hypoxia induced - Discontinued losartan 50mg daily - on Carvedilol 3.125mg BIDWM Health Maintenance: Disposition: Med telemetry, pending possible Bronchoscopy by ICU team Fluids: None Feeding: cardiac Thrombo prophylaxis: SCDs Gastric Ulcer prophylaxis: Not indicated CODE STATUS: Full code Assessment and plan discussed with my senior physician Dr. Palacios and attending Dr. Judy Mendosa MD PGY-1 Attending Provider Attestation/Addendum I, Gabriella Kim DO, attest that I was physically present for the mensah portions of the service and evaluated the patient with the resident and I reviewed and discussed the case with the resident and agree with the resident's findings and plans of care as documented above Patient seen and eval this a.m. Minimal fluid was noted on ultrasound thoracentesis, but noted to have density on x-ray, attributed to pneumonia. Patient has otherwise been afebrile. Case discussed with hose tubing backer, recommending bronchoscopy at this time due to lack of resolution of left lower lobe effusion versus pneumonia. Started on chest PT and Mucomyst with breathing treatments. Repeat cocci IgM is positive, but pending titers. Will follow with ID recommendations. Bronchoscopy was discussed and offered to patient and at bedside. They are agreeable to undergo intubation and bronchoscopy tomorrow to undergo further investigation.
--- NOTE | 2024-07-10 14:26 | ESPR_ITS ---
Subjective Subjective Interval history: seen a while ago. still here, on po rx for past several days. cx neg. cocci again pos. flucon continued original cocci neg at d. procal low, so may indeed be cocci. Exam Vital Signs Temp Pulse Resp BP Pulse Ox O2 Del Method O2 Flow Rate 97.8 F 99 29 H 123/73 94 L Nasal Cannula 5 07/10/24 12:00 07/10/24 12:00 07/10/24 12:00 07/10/24 12:00 07/10/24 12:00 07/10/24 12:00 07/10/24 12:00 Objective - Internal Medicine Labs 07/09/24 04:56 07/10/24 04:55 Labs: Laboratory Results - last 24 hr 07/10/24 07/10/24 04:55 10:30 Sodium 138 Potassium 5.0 D Chloride 100 Carbon Dioxide 27.7 Anion Gap 10 BUN 6 L Creatinine 0.9 Estim Creat Clear Calc 106.7 eGFR > 60 BUN/Creatinine Ratio 7 L Glucose 108 H Calculated Osmolality 274 L Calcium 8.2 L Corrected Calcium 8.8 Phosphorus 4.0 Albumin 3.2 L D Carcinoembryonic Ag < 0.5 Coccidioides IgM Ab Positive A Hepatitis C Antibody Non Reactive Misc Test Result Cancelled Assessment & Plan A&P Narrative pneumonia with effusion, cx neg with neg cocci test at [facility] but repeat pos locally home ok if sufficiently improved can stop flucon if test again neg at d if cocci pos at d, then I may be able to see him if referred by outpt primary and ok to stop the doxy at that time if cocci neg at d, then continue with po doxy for 6 weeks overall. and repeat the cxr in 4-6 weeks, sooner if worse. Time Spent With Patient Time: Total time spent is greater than 50% in coordination of care (as documented) at patient's floor/unit and/or counseling patient:
[2024-07-10] MEDS: ALBUTEROL/IPRATROPIUM (Duoneb) RT SOL 3 ML NEBU INH ×2 (18:50→22:05)
[2024-07-10] MEDS: ACETYLCYSTEINE SOL 20% 4 ML NEBU 3 ML INH (18:50)
[2024-07-10] MEDS: HYDROmorphone INJ 2 MG/ML VIAL 1 MG IVP (22:32)
[2024-07-11] VITALS (66 sets, daily range): BP systolic 97–196; BP diastolic 64–133; PULSE 71–120; RESP 10–28; TEMP 36.1–37.2; O2SAT 90–100; BMI 29.2
[2024-07-11] MEDS: ALBUTEROL/IPRATROPIUM (Duoneb) RT SOL 3 ML NEBU INH ×4 (03:14→22:22)
[2024-07-11] MEDS: PIPER/TAZO 3.375 GM PREMIX 3.375 GM/50 ML BAG IV ×3 (05:42→21:26)
[2024-07-11] MEDS: ACETYLCYSTEINE SOL 20% 4 ML NEBU 3 ML INH (06:20)
[2024-07-11] MEDS: HYDROmorphone INJ 2 MG/ML VIAL 1 MG IVP ×3 (07:43→23:24)
[2024-07-11] MEDS: ETOMIDATE INJ 2 MG/ML VIAL 10 ML 20 MG IVP (09:57)
[2024-07-11] MEDS: LORazepam 2 MG/ML VIAL IVP (09:58)
[2024-07-11] MEDS: ROCURONIUM INJ 10 MG/ML VIAL 10 ML 84 MG IV (09:59)
[2024-07-11] MEDS: fentaNYL 2,500 MCG/250 ML BAG 2,500 MCG/250 ML BAG IV (10:07)
[2024-07-11] MEDS: fentaNYL CIT INJ 50 mCg/ML AMP 2ML IVP (10:21)
--- NOTE | 2024-07-11 10:25 | XR_ITS ---
Examination: AP chest single view Technique one AP portable semiupright chest single view Date and time: July 11, 2024 1037 hours Comparison July 08, 2024 INDICATIONS: Hypoxic respiratory failure postintubation FINDINGS: Bilateral lung opacity, more prominent right lung consistent with pneumonia Pleural disease right hemithorax in addition Endotracheal tube tip 3.8 cm above rere Moderate osteopenia IMPRESSION: Bilateral pneumonia
--- NOTE | 2024-07-11 10:28 | PD.RESPROC ---
Procedures Procedure Date / Time 07/11/24 1028 Bronchoscopy Bronscopy indication(s): removal of secretions and diagnostic BAL Informed consent obtained from: patient Time out done and the following verified: correct patient, procedure, patient position and implants and/or equipment Oxygen delivery: via mechanical vent. Vocal cords: symmetric equally mobile Trachea: mid appears normal and distal appears normal RUL & subsegmental branches: mucosa appears normal RML & subsegmental branches: mucosa appears normal RLL & subsegmental branches: mucosa appears normal ОЛЕГ & subsegmental branches: mucosa appears normal LLL & subsegmental branches: mucosa appears normal Bronchoalveolar lavage: Scattered mild mucopurulent secretions bilaterally. BAL taken for analysis. EBL: 0 Patient tolerated procedure: well Procedure comment: Patient was intubated for procedure (see intubation note). Post-procedure, CXR was taken. Patient was hypertensive and tachycardic, with normal O2 saturation. He was diaphoretic, shaking his extremities, and awake. He was placed on a fentanyl drip with a 50mg fentanyl push, precedex, and 10mg of Labetolol x2. Patient remained agitated and was placed on spontaneous breathing PSV 10/5, was pulling good tidal volumes and awake, and extubated successfully. Procedure was done under the direct supervision of attending, Dr. Iban Haji MD PGY-3 Attending note: I was present for and participated in all mensah aspects of this procedure. Mucosa was wnl with no erythema or purulent secretions noted. A few mucus plugs were suctioned. bronchial tree was nl in appearence
[2024-07-11] MEDS: LABETALOL INJ 5 MG/ML VIAL 20 ML 10 MG IVP ×2 (10:32→10:44)
[2024-07-11] MEDS: DEXMEDETOMIDINE 400 MCG IVPB 400 MCG/100 ML BAG IV (10:45)
--- NOTE | 2024-07-11 11:28 | ESOP_ITS ---
Procedures Procedure Date / Time 07/11/24 10:05 Intubation Indication(s): other (bronchoscopy) Informed consent obtained: from patient Time out done, and the following verified: correct patient, side and site, procedure, patient position and implants and/or equipment Sedative: etomidate Mg given: 20 Sedative #2: other (ativan) Mg Given (sedative #2): 2 Paralytic: rocuronium Mg given: 84 Laryngoscope: fiber optic video scope Assist device used: fiber optic device ET tube size: 8 Tube secured depth (cm): 27 Tube secured location: teeth Tube placement confirmation: visualized tube passing through cords, equal breath sounds bilaterally, no breath sounds over epigastrium and confirmation by capnometry EBL(ml): 0 Intubation complications: hypoxia Additional comments: The patient was placed on a nuclear monitoring technician including continuous pulse oximetry. Rapid Sequence Intubation was conducted. The patient received 20 mg of etomidate for induction, 2mg of ativan, and 84 mg of rocuronium for adequate paralysis. A Quintero Size 3 laryngoscope was used to visualize the cords, however was difficult to visualize. The patient was bagged using an oropharyngeal airway. Patient became hypoxic. A glideoscope was used to directly visualize the visual cords. The patient was intubated using a size 8 endotracheal tube with a stylet. The stylet was removed and cuff balloon was inflated. Appropriate endotracheal tube position was confirmed by direct visualization of vocal cord passage, CO2 colormetric indicator and symmetric breath sounds. Oxygen saturation normalized. The tube was secured at 27 cm at the lips. A post-procedure X-ray was obtained after bronchscopy showing adequate positioning of the ETT tube. Procedure performed with attending, Ondina Nicolas MD PGY-3 Attending note: I was present for and performed mensah aspects of this procedure.
--- NOTE | 2024-07-11 12:13 | PC.SS ---
Follow up note: Patient was transferred to ICU for a bronch. Once completed he will return to med/surg.
[2024-07-11] MEDS: BENZOCAINE 20% (Hurricaine) SPRAY 1 DOSE TOP (13:23)
--- NOTE | 2024-07-11 14:02 | ESPR_ITS ---
<Statement entered by Reno Palacios MD - 07/11/24 15:59> Patient examined and case discussed with the team including attending physician. Note reviewed, I agree with the care plan as documented. Mr Beyer is a 43-year-old male with past medical history of hypertension, recent diagnosis of valley fever and recent discharge on 06/15/2024 presented to the ED due to fevers chills and shortness of breath. 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 He is s/p Thoracentesis. Initial CXR: Large right sided pleural effusion. Previous admission had US to evaluate pleural effusion however was not tapped due to insufficient fluid had 3.3L removal of fluid per lights criteria likely exudative effusions. Cocci IgM positive on 06/13 and pt was started on fluconazole. Patient denies any B symptoms, fevers likely due to infectious etiology. On this admission,07/08 Chest tube dc by ICU team. 07/10: repeat cocci IgM positive. 07/11: s/p bronchoscopy, post procedure CXR shows no change. Patient's oxygen saturations dropped to 3040s during the procedure, however he passed extubation trial and is improving. CEA : negative, rules out cancer. Plan: Continue Fluconazole PO 400 mg daily + PO Doxycycline (07/04?) and IV Zosyn (07/06/). Discontinued losartan 50mg daily for hypertentsion, started on Carvedilol 3.125mg BIDWM. Follow up Aspergillus, HUMBERTO and PPD results. Please refer to the note above for further details. Please refer to the note below for further details. - Reno Palacios MD, PGY 2 Disclaimer: The document may contain phonetic/typographic errors due to voice recognition software. These errors are purely due to imperfections in the software program. Documentation for date of: 07/11/24 Subjective Subjective Interval history: Patient seen today at the bedside found awake, alert, orientedx3. No overnight events reported. Vitals and labs reviewed. Patient is scheduled for bronchoscopy procedure today with bladder trimmer team. Will reevaluate postprocedure. Patient will likely require pulmonology services. Can be referred to infectious disease to follow-up [facility] cocci testing with doxycycline for 6 more weeks and CXR in 2-4 weeks. Likely DC in 24-48 hours. Exam Vital Signs Temp Pulse Resp BP Pulse Ox O2 Del Method O2 Flow Rate 97.0 F 71 22 H 100/73 96 Nasal Cannula 1 07/11/24 12:00 07/11/24 13:00 07/11/24 12:10 07/11/24 13:00 07/11/24 13:00 07/11/24 13:00 07/11/24 13:00 FiO2 60 07/11/24 10:35 Narrative Exam Physical Exam GENERAL: NAD, AAOx3 HEENT: Moist mucosa. Eyes open, symmetrical, & clear CARDIO: Heart RRR, no obvious murmurs PULM: Decreased breath sounds on the right side GI: Abdomen soft, nondistended, no pain on palpation. BSx4 SKIN/MSK/EXT: No wounds/rashes/edema/amputations, no pain on palpation. Pedal pulses present B/L NEURO: AAOx3, no focal neuro deficits, able to move all 4 extremities Objective Labs 07/09/24 04:56 07/10/24 04:55 Quality Measures Quality Measures none Assessment & Plan Assessment Current Active Medications: Generic Name Dose Route Start Last Admin Trade Name Freq PRN Reason Stop Dose Admin Acetaminophen 1,000 mg 07/07/24 07:30 07/09/24 08:33 Acetaminophen 500 Mg Tablet PO 08/03/24 16:14 1,000 mg Q6H PRN Administration fever >99 Acetylcysteine 3 ml 07/10/24 19:00 07/11/24 10:28 Acetylcysteine Willow 20% 4 Ml Nebu INH 08/09/24 18:59 Not Given Q4HRRT CYNTHIA Albuterol/Ipratropium 3 ml 07/10/24 19:00 07/11/24 10:28 Albuterol/Ipratropium (Duoneb) Rt Willow 3 Ml Nebu INH 08/09/24 18:59 Not Given Q4HRRT CYNTHIA Carvedilol 3.125 mg 07/07/24 08:00 07/11/24 13:58 Carvedilol 3.125 Mg Tablet PO 08/06/24 07:59 Not Given BIDWM CYNTHIA Doxycycline Hyclate 100 mg 07/10/24 21:00 07/11/24 13:58 Doxycycline 100 Mg Tablet PO 07/17/24 20:59 Not Given BID CYNTHIA Fluconazole 400 mg 07/04/24 16:30 07/10/24 08:20 Fluconazole 100 Mg Tablet PO 07/11/24 16:29 400 mg QDAY CYNTHIA Administration Hydromorphone HCl 1 mg 07/07/24 19:02 07/11/24 07:43 Hydromorphone Inj 2 Mg/Ml Vial IVP 07/12/24 14:34 1 mg Q4HR PRN Administration BREAKTHROUGH PAIN Protocol Hyoscyamine 0.25 mg 07/07/24 08:06 Hyoscyamine Sulf 0.125 Mg Tab.Subl PO 08/06/24 08:05 Q4HR PRN spasmodic abdominal pain Protocol Piperacillin/Tazobactam/Dextrose 3.375 gm in 50 mls @ 100 mls/hr 07/06/24 10:00 07/11/24 13:23 Zosyn IV 07/13/24 09:59 100 mls/hr Q8HR CYNTHIA Administration Ketorolac Tromethamine 30 mg 07/07/24 18:22 07/07/24 18:26 Ketorolac Inj 30 Mg/Ml Vial IVP 07/12/24 18:21 30 mg Q6HR PRN Administration PAIN Protocol Lactobacillus Rhamnosus 1 cap 07/07/24 09:00 07/11/24 13:58 Lactobacillus Rhamnosus 1 Cap PO 08/06/24 08:59 Not Given BID CYNTHIA Lidocaine 1 patch 07/06/24 09:06 07/10/24 12:48 Lidocaine 5% 1 Patch TOP 08/05/24 09:05 1 patch UD PRN Administration PAIN Protocol Morphine Sulfate 2 mg 07/07/24 18:27 07/09/24 03:28 Morphine Sulf Inj 10 Mg/Ml Vial IVP 07/12/24 13:36 2 mg Q4HR PRN Administration Pain 7-10 Ondansetron HCl 4 mg 07/04/24 16:15 Ondansetron Inj 2 Mg/Ml Inj 2 Ml IVP 08/03/24 16:14 Q6H PRN NAUSEA OR VOMITING Protocol Pantoprazole Sodium 40 mg 07/08/24 09:00 07/10/24 08:21 Pantoprazole 40 Mg Tablet PO 08/07/24 08:59 40 mg QDAY CYNTHIA Administration Protocol Sodium Chloride 3 ml 07/04/24 16:15 Sodium Chloride Rt Willow 0.9% 3 Ml Nebu INH 08/03/24 16:14 PRN PRN SOLN Plan 43-year-old male with past medical history of hypertension, recent diagnosis of valley fever and recent discharge on 06/15/2024 presented to the ED due to fevers chills and shortness of breath. Patient will be admitted for right pleural effusion secondary to coccidiomycosis versus superimposed bacterial pneumonia. #Right-sided Exudative pleural effusion s/p Thoracentesis #Cocci pneumonia #Pleuritis #Superimposed bacterial pneumonia #Status post bronchoscopy On arrival patient was spiking fevers, tachycardic, tachypneic, saturating 94% on room air, leukocytosis however no evidence of endorgan damage CXR: Large right sided pleural effusion Previous admission had US to evaluate pleural effusion however was not tapped due to insufficient fluid had 3.3L removal of fluid per lights criteria likely exudative effusions Chest tube dc by ICU team - Fluconazole PO 400 mg daily (07/04- - PO Doxycycline (07/04? - IV Zosyn (07/06/- - Pleural fluid cultures pending - Follow up pleural studies, previously noted to be exudative. Will follow-up with cultures and cytology. - Will repeat cocci IgM and IgG per ID recommendations - ID on board - Pain control: Tylenol (1-3), Morphine (4-10) and Dilaudid 1mg for breakthrough pain #Primary Hypertension #Sinus Tachycardia - improved At home takes losartan 100 mg daily BP 12-130s systolic on Losartan 50mg inpatient HR 110-120s , likely pain and hypoxia induced - Discontinued losartan 50mg daily - on Carvedilol 3.125mg BIDWM Health Maintenance: Disposition: Med telemetry, status post bronchoscopy, possible DC in 24-48 hours. Fluids: None Feeding: cardiac Thrombo prophylaxis: SCDs Gastric Ulcer prophylaxis: Not indicated CODE STATUS: Full code Assessment and plan discussed with my senior physician Dr. Palacios and attending Dr. Judy Mendosa MD PGY-1 Attending Provider Attestation/Addendum I, Gabriella Kim DO, attest that I was physically present for the mensah portions of the service and evaluated the patient with the resident and I reviewed and discussed the case with the resident and agree with the resident's findings and plans of care as documented above Patient underwent bronchoscopy today.Patient was seen and evaluated following extubation from bronchoscopy in the ICU.patient in no acute distress and diminished breath sounds noted in right lower lung. BAL was done and no significant structural abnormalities noted. Chest x-ray shows improvement of aeration in the right lower lobe of the lungs. Case was discussed in detail with bladder trimmer. Recommends continuing with breathing treatments with mucolytics and chest PT. Spoke with following procedure and discussed pending studies. 1 3 beta D glucan, galactomannan, BAL cultures and cytology, cocci titers obtained remain pending. If patient condition remains stable, patient can likely be discharged within the next 24 to 48 hours. Patient can follow-up with his PCP and ID for results of pending studies. Patient will likely need a pulmonology referral upon discharge. All questions concerns were addressed at bedside.
[2024-07-11] MEDS: PANTOPRAZOLE 40 MG TABLET PO (15:24)
[2024-07-11] MEDS: FLUCONAZOLE 100 MG TABLET 400 MG PO (15:24)
[2024-07-11] MEDS: carVEDILOL 3.125 MG TABLET PO (17:35)
[2024-07-11] MEDS: ONDANSETRON INJ 2 MG/ML INJ 2 ML 4 MG IVP (18:31)
[2024-07-11] MEDS: DOXYCYCLINE 100 MG TABLET PO (20:30)
[2024-07-11] MEDS: LACTOBACILLUS RHAMNOSUS 1 CAP PO (20:30)
[2024-07-12] VITALS (10 sets, daily range): BP systolic 102–117; BP diastolic 66–80; PULSE 81–100; RESP 16–25; TEMP 36.4–37.1; O2SAT 93–100
[2024-07-12] MEDS: ALBUTEROL/IPRATROPIUM (Duoneb) RT SOL 3 ML NEBU INH ×3 (03:53→10:57)
[2024-07-12] MEDS: PIPER/TAZO 3.375 GM PREMIX 3.375 GM/50 ML BAG IV (05:01)
[2024-07-12] MEDS: carVEDILOL 3.125 MG TABLET PO (07:56)
[2024-07-12] MEDS: LACTOBACILLUS RHAMNOSUS 1 CAP PO (07:56)
[2024-07-12] MEDS: PANTOPRAZOLE 40 MG TABLET PO (07:57)
[2024-07-12] MEDS: DOXYCYCLINE 100 MG TABLET PO (07:57)
[2024-07-12] MEDS: LIDOCAINE 5% 1 PATCH TOP (08:04)
[2024-07-12 09:04] LABS: Basophils % (Auto) 1 % (0-2.5); Eosinophils # (Auto) 0.3 Thou/mm3 (0.0-0.5); Eosinophils % (Auto) 3 % (0-10); Hematocrit 35.9 % (41.0-53.0); Hemoglobin 12.1 g/dL (13.5-16.0); Immature Granulocytes % (Auto) 1 % (0-0); Immature Granulocytes Auto 0.04 Thou/mm3 (0.00-0.00); Lymphocytes # (Auto) 0.9 Thou/mm3 (1.0-4.8); Lymphocytes % (Auto) 11 % (10-50); Mean Corpuscular HGB Conc 33.7 g/dl (31.0-37.0); Mean Corpuscular Volume 86 fL (80-100); Monocytes # (Auto) 0.6 Thou/mm3 (0.0-0.8); Monocytes % (Auto) 7 % (0-12); Neutrophils # (Auto) 6.1 Thou/mm3 (1.8-7.7); Neutrophils % (Auto) 77 % (37-80); Nucleated Red Blood Cell % 0 /100 WBC (0); Platelet Count 502 Thou/mm3 (140-440); RDW Standard Deviation 38.3 fL (35.1-43.9); Red Blood Count 4.17 Miln/mm3 (4.50-5.90); White Blood Count 7.9 Thou/mm3 (3.8-10.6)
[2024-07-12 09:37] LABS: Alanine Aminotransferase 88 U/L (10-49); Albumin, Serum 3.9 gm/dL (3.5-5.0); Alkaline Phosphatase 59 U/L (46-116); Anion Gap 10 (7-16); Aspartate Amino Transferase 30 U/L (0-34); BUN/Creatinine Ratio 7 Ratio (12-20); Bilirubin,Total 0.3 mg/dL (0.3-1.2); Blood Urea Nitrogen 6 mg/dL (9-23); Calcium 9.4 mg/dL (8.3-10.6); Calcium (Corrected) 9.5 mg/dL (8.5-10.1); Carbon Dioxide 26.3 mMol/L (20.0-31.0); Chloride 98 mMol/L (98-107); Creatinine (Component) 0.9 mg/dL (0.6-1.3); Estimated Creatinine Clearance 106.7 mL/min (>60); Globulin 4.1 gm/dL (2.3-3.5); Glucose 152 mg/dL (74-106); Osmolality,Calculated 268 (275-295); Potassium 3.7 mMol/L (3.4-5.1); Sodium 134 mMol/L (136-145); eGFR > 60 See Note
--- NOTE | 2024-07-12 10:36 | PC.SS ---
Follow up note: Patient is independent with ADL's. He has d/c orders for home tody. No needs.
--- NOTE | 2024-07-12 10:39 | PD.RESDS ---
Planned Discharge Date 07/12/24 DS: Providers Provider Date of admission: 07/04/24 16:15 Primary care physician: Amaya Valdes MD Admitting Provider: Rylan Isaacs MD Attending Provider on Admission: Gabriella Kim DO Consults: 07/07/24 18:13 Consult to Infectious Diseases Routine Comment: Consulting Provider: Orestes Garcia Attending Provider on DC: Reno Palacios MD Discharging Provider: Reno Palacios MD DS: Diagnosis Problem List Completed Was Problem List Reviewed/Reconciled?: Yes Hospital Course Hospital Course Hospital course: Patient seen today at the bedside found awake, alert, orientedx3. No overnight events reported. Vitals and labs reviewed. Patient is scheduled for bronchoscopy procedure today with pattern carrier team. Will reevaluate postprocedure. Patient will likely require pulmonology services. Can be referred to infectious disease to follow-up [facility] cocci testing with doxycycline for 6 more weeks and CXR in 2-4 weeks. Likely DC in 24-48 hours. Time Spent with Patient Time attestation: Total time spent providing and/or coordinating discharge services: Time spent: Greater than 30 minutes Exam Vital Signs Temp Pulse Resp BP Pulse Ox O2 Del Method O2 Flow Rate 98.7 F 99 17 117/71 95 Room Air 1 07/12/24 08:00 07/12/24 08:00 07/12/24 08:00 07/12/24 08:00 07/12/24 08:00 07/12/24 08:00 07/11/24 13:00 FiO2 60 07/11/24 10:35 Discharge Plan Plan Patient Disposition: HOME (Self Care) Patient condition on transfer: Stable Care Plan Goals: - Follow up with primary care provider within 1 week - Continue Doxycycline twice a day as recommended by infectious disease specialist. - If your Cocci titers and [facility] results are negative, you will need to continue Doxycycline for 6 weeks total - Continue Fluconazole 400mg daily - Follow up with ID specialist after discharge. - Discuss about need for Pulmonology referral with your PCP - Return to ED if symptoms worsen. Prescriptions/Referrals Prescriptions/Med Rec: New doxycycline hyclate 100 mg capsule 100 mg PO BID 14 Days Qty: 28 0RF hydrocodone-acetaminophen 5-325 mg tablet 1 tab PO Q8H MDD 15 PRN (Reason: pain) Qty: 5 0RF Continued losartan 100 mg tablet 100 mg PO QDAY fluconazole 200 mg tablet 400 mg PO QDAY 30 Days Qty: 60 2RF benzonatate 100 mg capsule 100 mg PO TID PRN (Reason: cough) Patient Comments: TAKE 1 CAPSULE BY MOUTH THREE TIMES DAILY NEEDED FOR COUGH Referrals: Orestes Garcia MD [Physician] - Amaya Valdes MD [Primary Care Provider] - Patient/Caregiver Discharge Instructions Discharge Activity: resume usual activities Education Materials: Pleural Effusion, Thoracentesis Dc Print Language: Armenian Stand Alone Forms: Audra Award Info., Patient Portal Info Letter, Work/Release Restrictions Discharge Order Discharge Orders: Discharge (Routine); Ordered 07/12/24 Ordered By: Reno Palacios Quality Discharge Quality Measures VTE prophylaxis
--- NOTE | 2024-07-12 13:55 | ESDS_ITS ---
Planned Discharge Date 07/12/24 DS: Providers Provider Date of admission: 07/04/24 16:15 Primary care physician: Amaya Valdes MD Admitting Provider: Rylan Isaacs MD Attending Provider on Admission: Gabriella Kim DO Consults: 07/07/24 18:13 Consult to Infectious Diseases Routine Comment: Consulting Provider: Orestes Garcia Attending Provider on DC: Main Mendosa MD Discharging Provider: Main Mendosa MD DS: Diagnosis Problem List Completed Was Problem List Reviewed/Reconciled?: Yes Hospital Course Hospital Course Hospital course: 43-year-old male with past medical history of hypertension and recent diagnosis of valley fever recent discharge in 06/15/2024 who presents to the ED due to fevers, chills, shortness of breath. Patient will be admitted for right pleural effusion secondary to coccidiomycosis versus superimposed bacterial pneumonia. During hospital stay patient was evaluated by appliquer zigzag had thoracentesis and later chest tube placement. After which patient had diagnostic bronchoscopy which showed some mucous plugging. Pleural studies were also obtained. Patient was also managed with IV antibiotics and antifungals for valley fever and bacterial pneumonia. At this time patient is medically stable for discharge. Follow up with PCP within 1 week. Continue Doxycycline twice a day as recommended by infectious disease specialist. If your Cocci titers and Nir results are negative, you will need to continue Doxycycline for 6 weeks total. Continue Fluconazole 400mg daily. Follow up with ID specialist after discharge. Should symptoms recur or worsen patient is instructed to return to the ED Problem list: #Right-sided exudative pleural effusion status post thoracentesis #Cocci pneumonia #Pleuritis #Superimposed bacterial pneumonia #Status post bronchoscopy #Primary hypertension #Sinus tachycardia?resolved Case discussed with my senior Dr. Palacios and my attending Dr. Francisco Javier Mendosa MD PGY-1 Status at Discharge Functional status at discharge: independent ambulation Overall status at discharge: patient is back to baseline Time Spent with Patient Time attestation: Total time spent providing and/or coordinating discharge services: Time spent: Less than 30 minutes Exam Vital Signs Temp Pulse Resp BP Pulse Ox O2 Del Method O2 Flow Rate 97.5 F 92 20 102/66 94 L Room Air 1 07/12/24 12:00 07/12/24 12:00 07/12/24 12:00 07/12/24 12:00 07/12/24 12:00 07/12/24 12:00 07/11/24 13:00 FiO2 60 07/11/24 10:35 Narrative Exam Physical Exam GENERAL: NAD, AAOx3 HEENT: Moist mucosa. Eyes open, symmetrical, & clear CARDIO: Heart RRR, no obvious murmurs PULM: No noted coughing/dyspnea CTA B/L, no R/W/R GI: Abdomen soft, nondistended, no pain on palpation. BSx4 SKIN/MSK/EXT: No wounds/rashes/edema/amputations, no pain on palpation. Pedal pulses present B/L NEURO: AAOx3, no focal neuro deficits, able to move all 4 extremities Discharge Plan Plan Patient Disposition: HOME (Self Care) Patient condition on transfer: Stable Care Plan Goals: - Follow up with primary care provider within 1 week - Continue Doxycycline twice a day as recommended by infectious disease specialist. - If your Cocci titers and [facility] results are negative, you will need to continue Doxycycline for 6 weeks total - Continue Fluconazole 400mg daily - Follow up with ID specialist after discharge. - Discuss about need for Pulmonology referral with your PCP - Return to ED if symptoms worsen. Prescriptions/Referrals Prescriptions/Med Rec: New doxycycline hyclate 100 mg capsule 100 mg PO BID 14 Days Qty: 28 0RF hydrocodone-acetaminophen 5-325 mg tablet 1 tab PO Q8H MDD 15 PRN (Reason: pain) Qty: 5 0RF Continued losartan 100 mg tablet 100 mg PO QDAY fluconazole 200 mg tablet 400 mg PO QDAY 30 Days Qty: 60 2RF benzonatate 100 mg capsule 100 mg PO TID PRN (Reason: cough) Patient Comments: TAKE 1 CAPSULE BY MOUTH THREE TIMES DAILY NEEDED FOR COUGH Referrals: Orestes Garcia MD [Physician] - Amaya Valdes MD [Primary Care Provider] - Patient/Caregiver Discharge Instructions Discharge Activity: resume usual activities Education Materials: Pleural Effusion, Thoracentesis Dc Print Language: Bhutanese Stand Alone Forms: Audra Award Info., Patient Portal Info Letter, Work/Release Restrictions Discharge Order Discharge Orders: Discharge (Routine); Ordered 07/12/24 Ordered By: Reno Palacios Quality Discharge Quality Measures VTE prophylaxis Attestestation MD Attestation I attest that I was physically present for the evaluation, physical examination, lab and imaging review of the patient with the residents. I discussed the case with the residents and agree with the findings and plans of care as documented above. Rasta Mcintyre MD
[2024-07-13 17:47] LABS: Index Value <0.50
[2024-07-13 19:49] LABS: (1-3)-B-D-glucan* 98 pg/mL
[2024-07-15 07:35] LABS: Interpretation POSITIVE
[2024-07-15 07:35] LABS: Aspergillus Ag, Ser* NOT DETECTED
[2024-07-16 06:35] LABS: ANA Screen, IFA NEGATIVE (NEGATIVE)
== END 2024-07-12 14:34 | disposition home or self-care (01) | DRG 177 ==
LOC: SERX 16:38 → SERHOLD 17:02 → S3NX 18:47 → S2SX 07-11 09:15 → S3NX 07-11 14:56
PROVIDERS: Internal Medicine Infectious Disease; Nurse Practitioner Family; Student in an Organized Health Care Education/Training Program; Admitting Provider Internal Medicine; Emergency Provider Family Medicine; PCP Family Medicine; Visit Provider Internal Medicine
DX: B38.0 Acute pulmonary coccidioidomycosis (principal); J15.9 Unspecified bacterial pneumonia; J91.8 Pleural effusion in other conditions classified elsewhere; R09.02 Hypoxemia; I10 Essential (primary) hypertension; Z79.899 Other long term (current) drug therapy; R00.0 Tachycardia, unspecified
CPT/HCPCS: 36415; 36600; 71045; 71250; 76705; 76999; 80053; 80069; 81001; 82150; 82378; 82803; 82945; 83540; 83550; 83605; 83615; 83690; 83735; 83880; 84100; 84145; 84157; 84484; 85025; 85610; 85730; 86038; 86480; 86580; 86635; 86703; 86803; 87040; 87070; 87075; 87081; 87086; 87102; 87205; 87252; 87305; 87449; 87634; 87811; 89051; 89220; 93005; 93225; 94002; 94640; 94664; 96365; 99285; A9270; C1729; J0696; J1171; J1885; J2060; J2270; J2405; J2470; J2543; J3010; J3475; J3490; J7030; J7120; P9047; J1920

== ENCOUNTER → 2024-07-04 | Outpatient (CLI) | payer BC, SELFPAY ==
--- NOTE | 2024-07-04 12:11 | XR_ITS ---
Examination: PA lateral chest 2 views TECHNIQUE: Upright PA lateral chest 2 views July 04, 2024 1240 hours Comparison June 13, 2024 INDICATIONS: Chest pain today shortness of breath FINDINGS: Much larger right pleural effusion Atelectasis and/or pneumonia right lung Mild enlargement cardiac contour IMPRESSION: Much larger right pleural effusion currently
== END | disposition home or self-care (01) ==
LOC: CDIM 11:59
PROVIDERS: PCP Family Medicine; Referring Provider Physician Assistant; Visit Provider Physician Assistant
DX: J90 Pleural effusion, not elsewhere classified (principal)
CPT/HCPCS: 71046

== ENCOUNTER → 2024-07-29 | Outpatient (CLI) | payer BC, SELFPAY ==
--- NOTE | 2024-07-29 10:15 | XR_ITS ---
Examination: PA lateral chest 2 views TECHNIQUE: Upright PA lateral chest 2 views Date and time: July 29, 2024 1056 hours Comparison July 11, 2024 INDICATIONS: History pneumonia, hypoxic respiratory failure June 2024 FINDINGS: Normal heart size Pneumonia in the anterior segment right upper lobe right middle lobe and right base Moderate right pleural fluid Normal heart size Left lung clear IMPRESSION: Significant right lung pneumonia Moderate right pleural fluid
[2024-07-29 11:49] LABS: Coccid Serology, CF (UCD)* See Sep Rpt
== END | disposition home or self-care (01) ==
LOC: CDIM 09:57
PROVIDERS: PCP Family Medicine; Referring Provider Physician Assistant; Visit Provider Physician Assistant
DX: J18.9 Pneumonia, unspecified organism (principal)
CPT/HCPCS: 71046; 86171

== ENCOUNTER → 2024-08-06 | Outpatient (CLI) | payer BC, SELFPAY ==
[2024-08-06 10:59] LABS: Basophils % (Auto) 1 % (0-2.5); Eosinophils # (Auto) 0.2 Thou/mm3 (0.0-0.5); Eosinophils % (Auto) 3 % (0-10); Hematocrit 37.4 % (41.0-53.0); Hemoglobin 12.4 g/dL (13.5-16.0); Immature Granulocytes % (Auto) 1 % (0-0); Immature Granulocytes Auto 0.03 Thou/mm3 (0.00-0.00); Lymphocytes # (Auto) 1.6 Thou/mm3 (1.0-4.8); Lymphocytes % (Auto) 32 % (10-50); Mean Corpuscular HGB Conc 33.2 g/dl (31.0-37.0); Mean Corpuscular Hemoglobin 29.5 pg (25.0-35.0); Mean Corpuscular Volume 89 fL (80-100); Monocytes # (Auto) 0.7 Thou/mm3 (0.0-0.8); Monocytes % (Auto) 14 % (0-12); Neutrophils # (Auto) 2.5 Thou/mm3 (1.8-7.7); Neutrophils % (Auto) 50 % (37-80); Nucleated Red Blood Cell % 0 /100 WBC (0); Platelet Count 301 Thou/mm3 (140-440); Red Blood Count 4.21 Miln/mm3 (4.50-5.90)
[2024-08-06 11:29] LABS: Prothrombin Time 10.9 Seconds (9.0-12.2)
== END | disposition home or self-care (01) ==
LOC: COPL 10:21
PROVIDERS: PCP Family Medicine; Referring Provider Physician Assistant; Visit Provider Physician Assistant
DX: Z01.812 Encounter for preprocedural laboratory examination (principal); J90 Pleural effusion, not elsewhere classified
CPT/HCPCS: 36415; 85025; 85610; 85730

== ENCOUNTER → 2024-08-07 | Outpatient (CLI) | payer BC, SELFPAY ==
--- NOTE | 2024-08-07 11:30 | XR_ITS ---
Examination: Ultrasound right hemithorax Ultrasound left hemithorax Date and time: August 07, 2024 1208 hours INDICATIONS: History pneumonia and pleural fluid on chest imaging this week. TECHNIQUE AND FINDINGS: Bilateral high resolution grayscale sonographic images hemithoraces Minimal right minimal left pleural fluid IMPRESSION: Minimal bilateral pleural fluid
== END | disposition home or self-care (01) ==
PROVIDERS: PCP Physician Assistant; Referring Provider Physician Assistant; Visit Provider Physician Assistant
DX: J90 Pleural effusion, not elsewhere classified (principal)
CPT/HCPCS: 76999

== ENCOUNTER → 2024-08-12 | Outpatient (CLI) | payer BC, SELFPAY ==
--- NOTE | 2024-08-12 10:50 | XR_ITS ---
Examination: PA lateral chest 2 views TECHNIQUE: Upright PA lateral chest 2 views Date and time: August 12, 2024 1058 hours Comparison July 29, 2024 INDICATIONS: Right lung pneumonia in right pleural fluid difficulty breathing this week FINDINGS: Significant pneumonia right middle lobe Moderate right pleural fluid Normal heart size Left lung clear IMPRESSION: Significant pneumonia right middle lobe Moderate right pleural fluid
[2024-08-12 12:35] LABS: Prostate Specific Antigen 1.04 ng/mL (0-4.00)
[2024-08-12 12:40] LABS: Alanine Aminotransferase 19 U/L (10-49); Albumin, Serum 4.1 gm/dL (3.5-5.0); Albumin/Globulin Ratio 1.1 (1.2-2.2); Alkaline Phosphatase 78 U/L (46-116); Anion Gap 6 (7-16); Aspartate Amino Transferase 15 U/L (0-34); BUN/Creatinine Ratio 9 Ratio (12-20); Bilirubin,Total 0.4 mg/dL (0.3-1.2); Blood Urea Nitrogen 8 mg/dL (9-23); Calcium 9.2 mg/dL (8.3-10.6); Calcium (Corrected) 9.2 mg/dL (8.5-10.1); Carbon Dioxide 28.5 mMol/L (20.0-31.0); Cardiac Risk Estimate 3.9 RATIO (4.0-6.7); Chloride 107 mMol/L (98-107); Cholesterol 155 mg/dL (132-200); Creatinine (Component) 0.9 mg/dL (0.6-1.3); Globulin 3.9 gm/dL (2.3-3.5); Glucose 102 mg/dL (74-106); HDL Cholesterol 40 mg/dL (40-60); LDL Cholesterol,Calculated 77 mg/dL (0-130); Osmolality,Calculated 279 (275-295); Potassium 4.6 mMol/L (3.4-5.1); Sodium 141 mMol/L (136-145); Thyroid Stimulating Hormone 1.67 uIU/mL (0.55-4.78); Triglycerides 191 mg/dL (30-150); eGFR > 60 See Note
== END | disposition home or self-care (01) ==
PROVIDERS: PCP Nurse Practitioner Family; Referring Provider Nurse Practitioner Family; Visit Provider Nurse Practitioner Family
DX: Z00.00 Encounter for general adult medical examination without abnormal findings (principal); J18.9 Pneumonia, unspecified organism
CPT/HCPCS: 36415; 71046; 80053; 80061; 84153; 84443

== ENCOUNTER → 2024-08-28 | Outpatient (CLI) | payer BC, SELFPAY ==
[2024-08-28 10:26] LABS: Coccid Serology, CF (UCD)* See Sep Rpt
[2024-08-28 10:58] LABS: Basophils # (Auto) 0.0 Thou/mm3 (0.0-0.2); Basophils % (Auto) 1 % (0-2.5); Eosinophils # (Auto) 0.1 Thou/mm3 (0.0-0.5); Eosinophils % (Auto) 2 % (0-10); Hematocrit 40.7 % (41.0-53.0); Hemoglobin 14.0 g/dL (13.5-16.0); Immature Granulocytes Auto 0.01 Thou/mm3 (0.00-0.00); Lymphocytes # (Auto) 1.6 Thou/mm3 (1.0-4.8); Lymphocytes % (Auto) 36 % (10-50); Mean Corpuscular HGB Conc 34.4 g/dl (31.0-37.0); Mean Corpuscular Hemoglobin 29.4 pg (25.0-35.0); Mean Corpuscular Volume 85 fL (80-100); Monocytes # (Auto) 0.6 Thou/mm3 (0.0-0.8); Monocytes % (Auto) 13 % (0-12); Neutrophils # (Auto) 2.1 Thou/mm3 (1.8-7.7); Neutrophils % (Auto) 48 % (37-80); Nucleated Red Blood Cell # 0.00 Thou/mm3 (0.00-0.00); Nucleated Red Blood Cell % 0 /100 WBC (0); Platelet Count 257 Thou/mm3 (140-440); RDW Standard Deviation 41.6 fL (35.1-43.9); Red Blood Count 4.77 Miln/mm3 (4.50-5.90); White Blood Count 4.3 Thou/mm3 (3.8-10.6)
[2024-08-28 11:09] LABS: Alanine Aminotransferase 22 U/L (10-49); Albumin, Serum 4.3 gm/dL (3.5-5.0); Albumin/Globulin Ratio 1.1 (1.2-2.2); Alkaline Phosphatase 79 U/L (46-116); Anion Gap 6 (7-16); Aspartate Amino Transferase 19 U/L (0-34); BUN/Creatinine Ratio 9 Ratio (12-20); Bilirubin,Total 0.5 mg/dL (0.3-1.2); Blood Urea Nitrogen 8 mg/dL (9-23); Calcium 9.5 mg/dL (8.3-10.6); Calcium (Corrected) 9.5 mg/dL (8.5-10.1); Carbon Dioxide 29.9 mMol/L (20.0-31.0); Chloride 105 mMol/L (98-107); Creatinine (Component) 0.9 mg/dL (0.6-1.3); Globulin 3.8 gm/dL (2.3-3.5); Glucose 102 mg/dL (74-106); Osmolality,Calculated 279 (275-295); Potassium 4.2 mMol/L (3.4-5.1); Sodium 141 mMol/L (136-145); Total Protein 8.1 gm/dL (5.7-8.2); eGFR > 60 See Note
== END | disposition home or self-care (01) ==
LOC: COPL 10:10
PROVIDERS: PCP Family Medicine; Referring Provider Internal Medicine; Visit Provider Internal Medicine
DX: B38.2 Pulmonary coccidioidomycosis, unspecified (principal)
CPT/HCPCS: 36415; 80053; 85025; 86171

== ENCOUNTER → 2024-09-23 | Outpatient (CLI) | payer BC, SELFPAY ==
--- NOTE | 2024-09-23 11:48 | XR_ITS ---
Examination: CT chest, without intravenous contrast. Sagittal and coronal 2-D reconstructions. Exam date and time: September 23, 2024 12:55 PM Comparison July 06, 2024 INDICATIONS: Difficulty breathing this week CTDI:vol (mGy) 13.2 DLP: (mGycm) 490 Technique: Multiple 3.0 mm axial sections of the chest to been obtained. Bone and lung density settings are obtained. Sagittal and coronal 2-D reconstructions have been obtained. Low dose protocols were performed. One or more of the following dose reduction techniques were used; automated exposure control, adjustment of the mA and/or KV according to patient size, use of iterative reconstruction technique. Findings: No thoracic aortic aneurysm dilatation Pulmonary artery segments are not enlarged No mediastinal lymphadenopathy Dense opacity in the right middle lobe most consistent with pneumonia with surrounding atelectasis Left lung clear No visualized liver or splenic lesion Contracted gallbladder No pancreatic mass Tiny 1 mm bilateral renal calculi IMPRESSION: Dense opacity in the right middle lobe most consistent with pneumonia, follow-up chest imaging is needed to document clearing Tiny bilateral renal calculi
== END | disposition home or self-care (01) ==
PROVIDERS: PCP Family Medicine; Referring Provider Internal Medicine; Visit Provider Internal Medicine
DX: R91.8 Other nonspecific abnormal finding of lung field (principal); N20.0 Calculus of kidney
CPT/HCPCS: 71250

== ENCOUNTER → 2024-09-25 | Outpatient (CLI) | payer BC, SELFPAY ==
[2024-09-25 09:43] LABS: Anion Gap 8 (7-16); BUN/Creatinine Ratio 9 Ratio (12-20); Blood Urea Nitrogen 8 mg/dL (9-23); Calcium 9.7 mg/dL (8.3-10.6); Carbon Dioxide 28.4 mMol/L (20.0-31.0); Chloride 105 mMol/L (98-107); Creatinine (Component) 0.9 mg/dL (0.6-1.3); Glucose 101 mg/dL (74-106); Osmolality,Calculated 279 (275-295); Potassium 3.9 mMol/L (3.4-5.1); Sodium 141 mMol/L (136-145); eGFR > 60 See Note
== END | disposition home or self-care (01) ==
LOC: COPL 08:54
PROVIDERS: PCP Family Medicine; Referring Provider Nurse Practitioner Family; Visit Provider Nurse Practitioner Family
DX: J18.9 Pneumonia, unspecified organism (principal)
CPT/HCPCS: 36415; 80048